=== PATIENT | male | born 1950 | race Caucasian/White ===

== ENCOUNTER 2016-11-29 09:16 | Day surgery (SDC) | payer MEDICARE, BC ==
[2016-11-27 14:41] VITALS: BMI 27.3
[~2016-11-29 09:16] MED LIST: LACTATED RINGERS 1,000 ML IV SCH; LIDOCAINE 1% 20 ML VIAL (10MG/ML) FOR IV START INTRADERMA PRN
[2016-11-29 10:59] VITALS: TEMP 96.9
[2016-11-29] MEDS ORDERED: PROPOFOL 10 MG/ML 20 ML VIAL IV ONE (11:41)
[2016-11-29] MEDS ORDERED: LIDOCAINE 1% INJ 10MG/ML (20 ML MDV) ONE (11:41)
[2016-11-29] MEDS ORDERED: GLYCOPYRROLATE 0.2 MG/ML 2 ML VIAL ONE (11:41)
--- NOTE | 2016-11-29 11:43 | P.GSHP ---
History of Present Illness H&P Date: 11/29/16 Chief Complaint: Screening colonoscopy This is a 66-year-old male referred from Dr. Sue newton. Patient notes today for screening colonoscopy. Past Medical History Past Medical History: GERD/Reflux, Hypertension Additional Past Medical History / Comment(s): PAST GERD. ENVIRONMENTAL ALLERGIES. History of Any Multi-Drug Resistant Organisms: None Reported Past Surgical History: Cholecystectomy, Hernia Repair, Joint Replacement Additional Past Surgical History / Comment(s): TOTAL LT HIP. CTR RT HAND. HIATAL HERNIA REPAIR. COLONOSCOPIES. Past Anesthesia/Blood Transfusion Reactions: No Reported Reaction Smoking Status: Former smoker - Past Family History Mother Family Medical History: No Reported History Medications and Allergies Home Medications Medication Instructions Recorded Confirmed Type Aspirin [Adult Low Dose Aspirin EC] 81 mg PO DAILY 11/27/16 11/29/16 History Atorvastatin [Lipitor] 10 mg PO HS 11/27/16 11/29/16 History B Complex-Vit C-Vit E-Zinc [Z-Bec] 1 tab PO DAILY 11/27/16 11/29/16 History Celecoxib [CeleBREX] 200 mg PO DAILY 11/27/16 11/29/16 History Cholecalciferol (Vitamin D3) 2,000 unit PO DAILY 11/27/16 11/29/16 History [Vitamin D3] Finasteride [Proscar] 5 mg PO DAILY 11/27/16 11/29/16 History Fish Oil/Dha/Epa [Fish Oil 1,200 2 each PO DAILY 11/27/16 11/29/16 History mg Fish Oil] Hydrochlorothiazide [Hydrodiuril] 12.5 mg PO DAILY 11/27/16 11/29/16 History Loratadine [Claritin] 10 mg PO DAILY 11/27/16 11/29/16 History Montelukast [Singulair] 10 mg PO HS 11/27/16 11/29/16 History Multivit-Min/FA/Lycopen/Lutein 1 each PO DAILY 11/27/16 11/29/16 History [Centrum Silver Men Tablet] Potassium Chloride [K-Tab ER] 20 meq PO MOFR 11/27/16 11/29/16 History Pregabalin [Lyrica] 150 mg PO QAM 11/27/16 11/29/16 History Pregabalin [Lyrica] 300 mg PO HS 11/27/16 11/29/16 History Allergies Allergy/AdvReac Type Severity Reaction Status Date / Time No Known Allergies Allergy Verified 11/29/16 11:00 Surgical - Exam Vital Signs Temp Pulse Resp BP Pulse Ox 96.9 F L 77 16 157/100 97 11/29/16 10:57 11/29/16 10:57 11/29/16 10:57 11/29/16 10:57 11/29/16 10:57 - General well developed, no distress - Eyes PERRL - ENT normal pinna - Neck no masses - Respiratory normal expansion - Cardiovascular Rhythm: regular - Abdomen Abdomen: soft, non tender Assessment and Plan Plan: We'll perform screening colonoscopy.
--- NOTE | 2016-11-29 11:58 | P.OP ---
Date of Procedure: 11/29/16 Preoperative Diagnosis: Screening colonoscopy Postoperative Diagnosis: Normal colonoscopy Procedure(s) Performed: Colonoscopy Anesthesia: MAC Surgeon: Morro Abraham Pathology: none sent Condition: stable Disposition: PACU Description of Procedure: The patient's placed on the endoscopy table in the lateral position. He received IV sedation. Digital rectal exam was performed which revealed no abnormalities. The prostate was symmetric without nodules. The flexible colonoscope was then placed patient anus passed throughout the entire colon. The ileocecal valve was visualized. The cecum, ascending transverse colon appeared normal. In the descending; was mild diverticular changes. Scope was then brought back the rectum and this appeared normal. Scope was withdrawn for patient.
[2016-11-29 12:08] VITALS: RESP 20
[2016-11-29 13:05] VITALS: BP 149/99; PULSE 78
== END 2016-11-29 13:18 | disposition home or self-care (01) ==
LOC: ORWHC2ENDO 09:16
PROVIDERS: ATTEND Surgery
DX: Z12.11 Encounter for screening for malignant neoplasm of colon (principal); I10 Essential (primary) hypertension; K21.9 Gastro-esophageal reflux disease without esophagitis; E78.5 Hyperlipidemia, unspecified; Z79.82 Long term (current) use of aspirin; Z79.899 Other long term (current) drug therapy; Z87.891 Personal history of nicotine dependence; Z96.642 Presence of left artificial hip joint
CPT/HCPCS: 96361; 96374; 99284; 36415; 80053; 82150; 83690; 85025; 71020; J2765; J2001; J2704; G0121

== ENCOUNTER 2016-11-29 21:29 | Emergency (ER) | payer MEDICARE, BC ==
[2016-11-29] MEDS ORDERED: METOCLOPRAMIDE 5 MG/ML 2 ML VIAL IVP STA (22:14)
[2016-11-29] MEDS ORDERED: SODIUM CHLORIDE 0.9% 1,000 ML IV STA ×2 (22:14)
--- NOTE | 2016-11-29 22:50 | ED ---
General Adult HPI - General Chief complaint: Nausea/Vomiting/Diarrhea Stated complaint: post colonoscopy headache & vomiting Time Seen by Provider: 11/29/16 22:08 Source: patient, family, RN notes reviewed, old records reviewed Mode of arrival: ambulatory Limitations: no limitations - History of Present Illness Initial comments: chief complaint and history of present illness this is a 66-year-old male here with family. The patient reports had a bowel prep last night for a colonoscopy today. Last night started having a mild headache he was nauseated he had diarrhea yesterday. Today of a colonoscopy had nausea vomiting headache increased diarrhea increased. Has not been able take his medications. Not complaining of any significant abdominal pain. - Related Data Home Medications Medication Instructions Recorded Confirmed Aspirin [Adult Low Dose Aspirin EC] 81 mg PO DAILY 11/27/16 11/29/16 Atorvastatin [Lipitor] 10 mg PO HS 11/27/16 11/29/16 B Complex-Vit C-Vit E-Zinc [Z-Bec] 1 tab PO DAILY 11/27/16 11/29/16 Celecoxib [CeleBREX] 200 mg PO DAILY 11/27/16 11/29/16 Cholecalciferol (Vitamin D3) 2,000 unit PO DAILY 11/27/16 11/29/16 [Vitamin D3] Finasteride [Proscar] 5 mg PO DAILY 11/27/16 11/29/16 Fish Oil/Dha/Epa [Fish Oil 1,200 2 cap PO DAILY 11/27/16 11/29/16 mg Fish Oil] Hydrochlorothiazide [Hydrodiuril] 12.5 mg PO DAILY 11/27/16 11/29/16 Loratadine [Claritin] 10 mg PO DAILY 11/27/16 11/29/16 Montelukast [Singulair] 10 mg PO HS 11/27/16 11/29/16 Potassium Chloride [K-Tab ER] 20 meq PO MOFR 11/27/16 11/29/16 Pregabalin [Lyrica] 150 mg PO QAM 11/27/16 11/29/16 Pregabalin [Lyrica] 300 mg PO HS 11/27/16 11/29/16 Multivitamins, Thera [Multivitamin 1 tab PO DAILY 11/29/16 11/29/16 (formulary)] Previous Rx's Medication Instructions Recorded Metoclopramide HCl [Reglan] 5 mg PO TID #6 tablet 11/30/16 Allergies Allergy/AdvReac Type Severity Reaction Status Date / Time No Known Allergies Allergy Verified 11/29/16 21:47 Review of Systems ROS Statement: Those systems with pertinent positive or pertinent negative responses have been documented in the HPI. review of systems patient reports she started having headache yesterday. Persisted today. Slightly better than it was earlier. No visual acuity changes. No sore throat. No chest pain or shortness of breath. He's had nausea vomiting and diarrhea today after having had a colonoscopy. All systems are reviewed Past medical problems GERD, hypertension,. The patient's surgeries cholecystectomy, left inguinal hernia repair. Left total hip. Family history father had lymphoma. Patient denies any ALLERGIES he quit smoking 1990. Drinks alcohol 2-3 beers per day. Review of the dictation of the colonoscopy findings procedure went without apparent difficulties no biopsies were performed no apparent complications recorded. ROS Other: All systems not noted in ROS Statement are negative. Past Medical History Past Medical History: GERD/Reflux, Hypertension Additional Past Medical History / Comment(s): PAST GERD. ENVIRONMENTAL ALLERGIES. History of Any Multi-Drug Resistant Organisms: None Reported Past Surgical History: Cholecystectomy, Hernia Repair, Joint Replacement Additional Past Surgical History / Comment(s): TOTAL LT HIP. CTR RT HAND. HIATAL HERNIA REPAIR. COLONOSCOPIES. Past Anesthesia/Blood Transfusion Reactions: No Reported Reaction Past Psychological History: No Psychological Hx Reported Smoking Status: Former smoker Past Alcohol Use History: None Reported Past Drug Use History: None Reported - Past Family History Mother Family Medical History: No Reported History General Exam - General Exam Comments Initial Comments: General: The patient is awake and alert, complain of mild headache, nausea vomiting and diarrhea. Vital signs temp 98.3 pulse 96 respiratory rate 20 pulse ox 90% room air blood pressure 176/98 Eye: Pupils are equal, round and reactive to light, extra-ocular movements are intact ; there is normal conjunctiva bilaterally. No signs of icterus. Ears, nose, mouth and throat: There are moist mucous membranes no oral lesions, patient is edentulous. Neck: The neck is supple, there is no tenderness, no anterior cervical lymphadenopathy thyroid not enlarged. Cardiovascular: There is a regular rate and rhythm. No murmur, rub or gallop is appreciated. Respiratory: Lungs are clear to auscultation, respirations are non-labored, breath sounds are equal. No wheezes, stridor, rales, or rhonchi. Gastrointestinal: Soft, non-distended, non-tender abdomen without masses or organomegaly noted. There is no rebound or guarding present. active bowel sounds.planes of nausea vomiting and diarrhea. Back: no back pain. 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 He also reports having spinal stenosis. Neurological: no neuro deficits. Skin is warm and dry and no rashes or lesions are noted. Limitations: no limitations Course Vital Signs 11/29/16 11/29/16 21:46 23:55 Temperature 98.3 F 98.2 F Pulse Rate 96 93 Respiratory 20 18 Rate Blood Pressure 176/98 171/99 O2 Sat by Pulse 98 95 Oximetry Medical Decision Making - Medical Decision Making Labs show white count 9 hemoglobin 16 hematocrit 46. Potassium 4.1 with a BUN 12 creatinine 0.78 and GFR greater than 60. Glucose 141. Amylase lipase within normal limits. x-ray the chest was done reviewed by radiologist his final impression is unremarkable [address] morris. There is no evidence of free air under the diaphragm specifically. after IV Reglan and a liter fluid the patient reports feeling much better. The patient will be discharged home on medications to include Reglan, Pepto-Bismol advised to rehydrate. - Lab Data Result diagrams: 11/29/16 22:50 11/29/16 22:50 Lab Results 11/29/16 11/29/16 Range/Units 22:50 22:50 WBC 9.1 (3.8-10.6) k/uL RBC 4.98 (4.30-5.90) m/uL Hgb 16.1 (13.0-17.5) gm/dL Hct 46.7 (39.0-53.0) % MCV 93.9 (80.0-100.0) fL MCH 32.4 (25.0-35.0) pg MCHC 34.5 (31.0-37.0) g/dL RDW 14.9 (11.5-15.5) % Plt Count 146 L (150-450) k/uL Neutrophils % 83 % Lymphocytes % 9 % Monocytes % 5 % Eosinophils % 1 % Basophils % 0 % Neutrophils # 7.6 (1.3-7.7) k/uL Lymphocytes # 0.8 L (1.0-4.8) k/uL Monocytes # 0.5 (0-1.0) k/uL Eosinophils # 0.1 (0-0.7) k/uL Basophils # 0.0 (0-0.2) k/uL Sodium 130 L (137-145) mmol/L Potassium 4.1 (3.5-5.1) mmol/L Chloride 94 L (98-107) mmol/L Carbon Dioxide 24 (22-30) mmol/L Anion Gap 12 mmol/L BUN 12 (9-20) mg/dL Creatinine 0.78 (0.66-1.25) mg/dL Est GFR (MDRD) Af Amer >60 (>60 ml/min/1.73 sqM) Est GFR (MDRD) Non-Af >60 (>60 ml/min/1.73 sqM) Glucose 141 H (74-99) mg/dL Calcium 9.6 (8.4-10.2) mg/dL Total Bilirubin 1.0 (0.2-1.3) mg/dL AST 34 (17-59) U/L ALT 42 (21-72) U/L Alkaline Phosphatase 79 (38-126) U/L Total Protein 7.5 (6.3-8.2) g/dL Albumin 4.8 (3.5-5.0) g/dL Amylase 38 (30-110) U/L Lipase 30 (23-300) U/L Disposition Clinical Impression: Dehydration symptoms Disposition: HOME SELF-CARE Condition: Fair Instructions: Acute Diarrhea (ED), Acute Nausea and Vomiting (ED) Additional Instructions: follow-up with your family physician. Continue clear fluids. Use Reglan for nausea control, use Pepto-Bismol to control diarrhea. Advance diet Prescriptions: Metoclopramide HCl [Reglan] 5 mg PO TID #6 tablet Referrals: Sue Miranda DO [Primary Care Provider] - 1-2 days Time of Disposition: 00:12
[2016-11-29 23:04] LABS: Basophils % (A) 0 %; CH 33.7; Eosinophils # (A) 0.1 k/uL (0-0.7); Eosinophils % (A) 1 %; HCT 46.7 % (39.0-53.0); HDW 2.59; HGB 16.1 gm/dL (13.0-17.5); Luc % (Auto) 1; Lymphocytes # (A) 0.8 k/uL (1.0-4.8); Lymphocytes % (A) 9 %; MCH 32.4 pg (25.0-35.0); MCHC 34.5 g/dL (31.0-37.0); MCV 93.9 fL (80.0-100.0); Mean Platelet Volume 8.8; Monocytes # (A) 0.5 k/uL (0-1.0); Monocytes % (A) 5 %; Neutrophils # (A) 7.6 k/uL (1.3-7.7); Neutrophils % (A) 83 %; RBC 4.98 m/uL (4.30-5.90); RDW 14.9 % (11.5-15.5); WBC 9.1 k/uL (3.8-10.6); WBC (Perox) 8.72
[2016-11-29 23:12] LABS: ALT 42 U/L (21-72); AST 34 U/L (17-59); Alkaline Phosphatase 79 U/L (38-126); Amylase 38 U/L (30-110); Anion Gap 12 mmol/L; Blood Urea Nitrogen 12 mg/dL (9-20); Calcium 9.6 mg/dL (8.4-10.2); Carbon Dioxide 24 mmol/L (22-30); Chloride 94 mmol/L (98-107); Glucose 141 mg/dL (74-99); Non-African American GFR(MDRD) >60 (>60 ml/min/1.73 sqM); Potassium 4.1 mmol/L (3.5-5.1); Sodium 130 mmol/L (137-145); Total Protein 7.5 g/dL (6.3-8.2)
--- NOTE | 2016-11-29 23:44 | XR ---
PROCEDURE: FILM CXR 2 VIEWS HISTORY: 66-year-old male with chest pain, nausea, and vomiting status post colonoscopy. COMPARISON: None TECHNIQUE: Frontal and lateral views of the chest were obtained. FINDINGS: Cardiomediastinal silhouette is within normal limits. No evidence of focal consolidation, pleural effusion, or pneumothorax No evidence of focal consolidation. Bones are unremarkable for age. No evidence of free air under the diaphragm. Cholecystectomy clips overlie the right upper quadrant. IMPRESSION: Unremarkable two-view chest..
[2016-11-29 23:57] VITALS: BP 171/99; PULSE 93; RESP 18; TEMP 98.2
== END 2016-11-30 00:32 | disposition home or self-care (01) ==
LOC: EC 21:29
DX: R51 Headache (principal); R11.2 Nausea with vomiting, unspecified; R19.7 Diarrhea, unspecified; K21.9 Gastro-esophageal reflux disease without esophagitis; I10 Essential (primary) hypertension; Z87.891 Personal history of nicotine dependence; Z79.82 Long term (current) use of aspirin; Z79.899 Other long term (current) drug therapy; Z90.49 Acquired absence of other specified parts of digestive tract
CPT/HCPCS: 36415; 80053; 82150; 83690; 85025; 71020; 99284; 96374; 96361 ×2; J2765

== ENCOUNTER 2017-04-03 09:14 | Emergency (ER) | payer MEDICARE, BC ==
[2017-04-03] MEDS ORDERED: SODIUM CHLORIDE 0.9% 1,000 ML IV STA (09:18)
[2017-04-03] MEDS ORDERED: RX INFO: IV CONTRAST WAS GIVEN 1 EACH MISC MISCELLANE PRN (09:18)
[2017-04-03] MEDS ORDERED: SODIUM CHLORIDE 0.9% 500 ML IV STA (09:18)
[2017-04-03] MEDS ORDERED: tPA (Alteplase) PER PHARMACY 1 EACH MISC MISCELLANE PRN (09:19)
[2017-04-03 09:30] VITALS: TEMP 96.9
[2017-04-03] MEDS ORDERED: LABETALOL 5 MG/ML VIAL MDV IVP STA (09:32)
[2017-04-03] MEDS ORDERED: niCARdipine 25 MG in SODIUM CHLORIDE 0.9% 240 ML IV ONE ×2 (09:37→09:45)
[2017-04-03] MEDS ORDERED: TRANEXAMIC ACID 1,000 MG in SODIUM CHLORIDE 0.9% 100 ML IV STA (09:39)
[2017-04-03] MEDS ORDERED: TRANEXAMIC ACID 1,000 MG in SODIUM CHLORIDE 0.9% 250 ML IV ONE (09:39)
--- NOTE | 2017-04-03 09:43 | ED ---
General Adult HPI - General Chief complaint: Neuro Symptoms/Deficit Stated complaint: CVA Time Seen by Provider: 04/03/17 09:18 Source: EMS, RN notes reviewed, old records reviewed Mode of arrival: EMS Limitations: physical limitation - History of Present Illness Initial comments: This is a 67 male to the ER for evaluation. Patient's friend ER for evaluation of being found down and unresponsive. Patient is on no medical history, patient 's poor historian secondary to clinical condition, EMS knows little about patient, patient has and remains unresponsive, EMS noted patient is not moving any part of the right side of his body. Patient is also unable to talk - Related Data Home Medications Medication Instructions Recorded Confirmed Aspirin [Adult Low Dose Aspirin EC] 81 mg PO DAILY 11/27/16 04/03/17 Atorvastatin [Lipitor] 10 mg PO HS 11/27/16 04/03/17 Celecoxib [CeleBREX] 200 mg PO DAILY 11/27/16 04/03/17 Cholecalciferol (Vitamin D3) 2,000 unit PO DAILY 11/27/16 04/03/17 [Vitamin D3] Finasteride [Proscar] 5 mg PO DAILY 11/27/16 04/03/17 Fish Oil/Dha/Epa [Fish Oil 1,200 2 cap PO DAILY 11/27/16 04/03/17 mg Fish Oil] Loratadine [Claritin] 10 mg PO DAILY 11/27/16 04/03/17 Montelukast [Singulair] 10 mg PO HS 11/27/16 04/03/17 Potassium Chloride [K-Tab ER] 20 meq PO DAILY 11/27/16 04/03/17 Pregabalin [Lyrica] 150 mg PO DAILY 11/27/16 04/03/17 Pregabalin [Lyrica] 300 mg PO HS 11/27/16 04/03/17 Multivitamins, Thera [Multivitamin 1 tab PO DAILY 11/29/16 04/03/17 (formulary)] Gabapentin [Neurontin] 600 mg PO BID 04/03/17 04/03/17 Lisinopril-Hctz 10-12.5 mg 1 tab PO DAILY 04/03/17 04/03/17 [Zestoretic 10-12.5] Allergies Allergy/AdvReac Type Severity Reaction Status Date / Time No Known Allergies Allergy Verified 04/03/17 09:33 Review of Systems ROS Statement: Those systems with pertinent positive or pertinent negative responses have been documented in the HPI. ROS Other: All systems not noted in ROS Statement are negative. Past Medical History Past Medical History: GERD/Reflux, Hypertension Additional Past Medical History / Comment(s): PAST GERD. ENVIRONMENTAL ALLERGIES. History of Any Multi-Drug Resistant Organisms: None Reported Past Surgical History: Cholecystectomy, Hernia Repair, Joint Replacement Additional Past Surgical History / Comment(s): TOTAL LT HIP. CTR RT HAND. HIATAL HERNIA REPAIR. COLONOSCOPIES. Past Anesthesia/Blood Transfusion Reactions: No Reported Reaction Past Psychological History: No Psychological Hx Reported Smoking Status: Former smoker Past Alcohol Use History: None Reported Past Drug Use History: None Reported - Past Family History Mother Family Medical History: No Reported History General Exam - General Exam Comments Initial Comments: Patient is alert, unable to speak, Limitations: physical limitation General appearance: alert, in no apparent distress Head exam: Present: atraumatic, normocephalic, normal inspection Eye exam: Present: normal appearance, PERRL, other (Left gaze). Absent: scleral icterus, conjunctival injection, periorbital swelling ENT exam: Present: normal exam, mucous membranes moist Neck exam: Present: normal inspection. Absent: tenderness, meningismus, lymphadenopathy Respiratory exam: Present: normal lung sounds bilaterally. Absent: respiratory distress, wheezes, rales, rhonchi, stridor Cardiovascular Exam: Present: normal rhythm, tachycardia, normal heart sounds. Absent: systolic murmur, diastolic murmur, rubs, gallop, clicks GI/Abdominal exam: Present: soft, normal bowel sounds. Absent: distended, tenderness, guarding, rebound, rigid Extremities exam: Present: normal inspection, full ROM, normal capillary refill. Absent: tenderness, pedal edema, joint swelling, calf tenderness Back exam: Present: normal inspection Neurological exam: Present: alert, oriented X3, CN II-XII intact Psychiatric exam: Present: normal affect, normal mood Skin exam: Present: warm, dry, intact, normal color. Absent: rash Course Vital Signs 04/03/17 04/03/17 04/03/17 09:14 09:33 09:48 Temperature 96.9 F L Pulse Rate 112 H 84 69 Respiratory 18 18 16 Rate Blood Pressure 174/101 184/107 150/91 O2 Sat by Pulse 96 94 L 96 Oximetry 04/03/17 04/03/17 10:00 10:15 Temperature Pulse Rate 74 72 Respiratory 16 16 Rate Blood Pressure 132/79 141/91 O2 Sat by Pulse 95 95 Oximetry - Reevaluation(s) Reevaluation #1: 04/03/17 09:41 Strict blood pressure control is achieved here in the emergency room EKG Findings - EKG Comments: EKG Findings:: EKG shows normal sinus rhythm rate of 70, pO2 10, QRS 86, QTc 417 Medical Decision Making - Medical Decision Making 67 male the ER for evaluation regarding altered mental state, patient is positive spontaneous intracerebral hemorrhage secondary to spontaneous event, no evidence of trauma. Patient will be transferred for neurosurgical evaluation and management, intensive care - Lab Data Result diagrams: 04/03/17 09:30 04/03/17 09:30 Lab Results 04/03/17 04/03/17 Range/Units 09:30 09:30 WBC 6.5 (3.8-10.6) k/uL RBC 4.75 (4.30-5.90) m/uL Hgb 15.0 (13.0-17.5) gm/dL Hct 43.5 (39.0-53.0) % MCV 91.7 (80.0-100.0) fL MCH 31.5 (25.0-35.0) pg MCHC 34.4 (31.0-37.0) g/dL RDW 14.7 (11.5-15.5) % Plt Count 170 (150-450) k/uL Neutrophils % 43 % Lymphocytes % 39 % Monocytes % 8 % Eosinophils % 5 % Basophils % 1 % Neutrophils # 2.8 (1.3-7.7) k/uL Lymphocytes # 2.5 (1.0-4.8) k/uL Monocytes # 0.5 (0-1.0) k/uL Eosinophils # 0.4 (0-0.7) k/uL Basophils # 0.0 (0-0.2) k/uL Sodium 129 L (137-145) mmol/L Potassium 4.1 (3.5-5.1) mmol/L Chloride 93 L (98-107) mmol/L Carbon Dioxide 25 (22-30) mmol/L Anion Gap 11 mmol/L BUN 16 (9-20) mg/dL Creatinine 0.77 (0.66-1.25) mg/dL Est GFR (MDRD) Af Amer >60 (>60 ml/min/1.73 sqM) Est GFR (MDRD) Non-Af >60 (>60 ml/min/1.73 sqM) Glucose 126 H (74-99) mg/dL Calcium 9.5 (8.4-10.2) mg/dL Total Bilirubin 0.8 (0.2-1.3) mg/dL AST 35 (17-59) U/L ALT 39 (21-72) U/L Alkaline Phosphatase 78 (38-126) U/L Total Protein 6.8 (6.3-8.2) g/dL Albumin 4.3 (3.5-5.0) g/dL - Radiology Data Radiology results: report reviewed (CT brain is positive for spontaneous intracerebral hemorrhage), image reviewed Critical Care Time Critical Care Time: Yes Total Critical Care Time: 31 Disposition Clinical Impression: Intracerebral hemorrhage Disposition: OTHER INSTITUTION NOT DEFINED Condition: Critical Referrals: None,Stated [REFERRING] - 1-2 days - Out of Hospital Transfer - Req. Specs Out of Hospital Transfer - Requested Specifics: Other Emergency Center ([facility])
[2017-04-03] MEDS ORDERED: LABETALOL 5 MG/ML VIAL MDV IVP SCH (09:45)
--- NOTE | 2017-04-03 09:49 | CT ---
EXAMINATION TYPE: CT brain wo con for TPA DATE OF EXAM: 04/03/2017 COMPARISON: NONE INDICATION: Rt sided weakness, unresponsive DLP: 943.8 mGycm, Automated exposure control for dose reduction was used. CONTRAST: None CT of the brain is performed utilizing 3 mm thick sections through the posterior fossa and 3 mm thick sections through the remaining calvarium. Study is performed within 24 hours of arrival to the hosp ital. There is a 5.7 x 2.5 x 3.9 cm hemorrhage extending from the left basal ganglion. This has local mass effect. Edema is not adjacent at this time. There is some effacement of the local sulci as well as ef facement of the left lateral ventricle. No midline shift or subfalcine herniation is evident. No temp oral horn dilatation is evident at this time. Remaining ventricles and sulci are appropriate for the patient age. Quadrigeminal plate and ambient cistern are normal. No tentorial herniation is evident . No mass lesion is evident. No acute infarcts are evident. Paranasal sinuses and mastoid air cells within the [id number] are clear. IMPRESSIONS: 1. Large intraparenchymal left basal ganglion hemorrhage with local mass effect and effacement of s ulci and left lateral ventricle. 2. Report was called to the emergency room physician Dr. Rodriguez by Dr. Buchanan by telephone at 0945 hours 04/03/2017.
--- NOTE | 2017-04-03 09:53 | CT ---
EXAMINATION TYPE: CT cervical spine wo con DATE OF EXAM: 04/03/2017 COMPARISON: NONE HISTORY: CVA CT DLP: 697.9 mGycm CONTRAST: none CT of the cervical spine is performed in the axial plane at 2 mm thick sections. Reconstructed image s in the coronal, and sagittal plane are reviewed on the computer. No acute fractures are evident. Vertebral body alignment is normal. There is loss of disc height through the cervical spine greater at C3-4 C4-5 and C6-7. Vertebral body heights are preserved. No spinal canal stenosis is evident Uncovertebral joint hypertrophy at C3-4 causes moderate right and minimal left foraminal narrowing. M ild foraminal narrowing is present C4-5 due to uncovertebral joint hypertrophy bilaterally. Facet guilherme nges are present C5-6 without significant foraminal narrowing. Mild uncovertebral joint hypertrophy i s present C6-7 with mild left foraminal narrowing. IMPRESSIONS: 1. Degenerative disc changes discussed above. 2. Uncovertebral joint hypertrophy facet hypertrophy contributing to foraminal narrowing as discussed above. 3. No acute abnormality
[2017-04-03 10:00] VITALS: RESP 16
[2017-04-03 10:05] LABS: ALT 39 U/L (21-72); AST 35 U/L (17-59); Albumin 4.3 g/dL (3.5-5.0); Alkaline Phosphatase 78 U/L (38-126); Anion Gap 11 mmol/L; Blood Urea Nitrogen 16 mg/dL (9-20); Calcium 9.5 mg/dL (8.4-10.2); Carbon Dioxide 25 mmol/L (22-30); Chloride 93 mmol/L (98-107); Glucose 126 mg/dL (74-99); Potassium 4.1 mmol/L (3.5-5.1); Sodium 129 mmol/L (137-145); Total Bilirubin 0.8 mg/dL (0.2-1.3); Total Protein 6.8 g/dL (6.3-8.2)
[2017-04-03] MEDS ORDERED: PHYTONADIONE 10 MG in SODIUM CHLORIDE 0.9% 50 ML IVPB STA (10:07)
[2017-04-03] MEDS ORDERED: Kcentra PER PHARMACY 1 EACH MISC MISCELLANE PRN (10:07)
[2017-04-03 10:11] LABS: Basophils % (A) 1 %; Eosinophils # (A) 0.4 k/uL (0-0.7); Eosinophils % (A) 5 %; HCT 43.5 % (39.0-53.0); Lymphocytes # (A) 2.5 k/uL (1.0-4.8); Lymphocytes % (A) 39 %; MCH 31.5 pg (25.0-35.0); MCHC 34.4 g/dL (31.0-37.0); MCV 91.7 fL (80.0-100.0); Mean Platelet Volume 7.7; Monocytes # (A) 0.5 k/uL (0-1.0); Monocytes % (A) 8 %; Neutrophils # (A) 2.8 k/uL (1.3-7.7); Neutrophils % (A) 43 %; Platelet Count 170 k/uL (150-450); RBC 4.75 m/uL (4.30-5.90); RDW 14.7 % (11.5-15.5); WBC 6.5 k/uL (3.8-10.6)
[2017-04-03 10:15] LABS: Creatine Kinase 119 U/L (55-170)
[2017-04-03 10:28] LABS: Creatine Kinase MB 2.4 ng/mL (0.0-2.4); Troponin I <0.012 ng/mL (0.000-0.034)
--- NOTE | 2017-04-03 10:32 | XR ---
EXAMINATION TYPE: XR chest 1V portable DATE OF EXAM: 04/03/2017 COMPARISON: 11/29/2016 INDICATION: Altered mental status TECHNIQUE: Single frontal view of the chest is obtained. FINDINGS: The heart size is mildly prominent. The pulmonary vasculature is normal. Left lung apex is obscured by the mandible. Mild lingular infiltrate may be present. IMPRESSION: 1. Suspicion of a mild lingular infiltrate. 2. Mild cardiomegaly
[2017-04-03 10:46] VITALS: PULSE 73
[2017-04-03 10:52] LABS: Glucose,Whole Blood 121 mg/dL (75-99)
[2017-04-03 10:55] VITALS: BP 146/85
[2017-04-03 11:04] LABS: INR 1.1 (<1.2); Partial Thromboplastin Time 24.4 sec (22.0-30.0); Prothrombin Time 10.6 sec (9.0-12.0)
== END 2017-04-03 11:13 | disposition other institution (70) ==
LOC: EC 09:14
DX: I61.9 Nontraumatic intracerebral hemorrhage, unspecified (principal); I10 Essential (primary) hypertension; Z87.891 Personal history of nicotine dependence; Z79.82 Long term (current) use of aspirin; Z79.899 Other long term (current) drug therapy
CPT/HCPCS: 36415; 51702; 70450; 71045; 72125; 80053; 82550; 82553; 84484; 85025; 85610; 85730; 86850; 86900; 86901; 93005; 96361; 96365; 96375; 99291

== ENCOUNTER 2023-12-16 11:24 | Inpatient (IN) | payer MEDICARE, OTHER ==
--- NOTE | 2023-12-16 11:34 | ED ---
SOB HPI - General Chief Complaint: Shortness of Breath Stated Complaint: ELLIE Time Seen by Provider: 12/16/23 11:31 Source: EMS, RN notes reviewed, old records reviewed Mode of arrival: EMS Limitations: no limitations - History of Present Illness Initial Comments: This is a 73-year-old male to the ER today. Patient has known history of COPD diabetes chronic kidney chronic kidney disease high cholesterol dementia. These are contributing to his significant respiratory distress. This patient presents today for evaluation regards to shortness of breath with low oxygen levels. Patient has persistent and severe shortness of breath here in the ER. Travel no sick contacts no other known complaints, patient was with low oxygen to arrival and persistently low oxygen here in the ER MD Complaint: shortness of breath, cough -: unknown Severity: severe Severity scale (1-10): 9 Consistency: constant Improves With: nothing Worsens With: nothing Known History Of: COPD, congestive heart failure Context: recent illness Associated Symptoms: cough - Related Data Home Medications Medication Instructions Recorded Confirmed Atorvastatin [Lipitor] 10 mg PO HS 11/27/16 12/16/23 Finasteride [Proscar] 5 mg PO DAILY 11/27/16 12/16/23 Montelukast [Singulair] 10 mg PO HS 11/27/16 12/16/23 Pregabalin [Lyrica] 150 mg PO BID 11/27/16 12/16/23 Multivitamins, Thera [Multivitamin 1 tab PO DAILY 11/29/16 12/16/23 (formulary)] Cholecalciferol [Vitamin D3 (25 75 mcg PO DAILY 12/16/23 12/16/23 Mcg = 1000 Iu)] Fluticasone/Umeclidin/Vilanter 1 puff INHALATION RT-DAILY 12/16/23 12/16/23 [Trelegy Ellipta 100-62.5-25] HYDROcodone/APAP 5-325MG [[place] 1 tab PO BID 12/16/23 12/16/23 5-325] Insulin Glargine,Hum.rec.anlog 20 units SQ DAILY 12/16/23 12/16/23 [Lantus Solostar Pen] Ipratropium-Albuterol Nebulize 3 ml INHALATION RT-TID 12/16/23 12/16/23 [Duoneb 0.5 mg-3 mg/3 ml Soln] Metoprolol Tartrate [Lopressor] 12.5 mg PO BID 12/16/23 12/16/23 metFORMIN HCL [Glucophage] 500 mg PO BID-W/MEALS 12/16/23 12/16/23 Allergies Allergy/AdvReac Type Severity Reaction Status Date / Time No Known Allergies Allergy Verified 12/16/23 13:39 Review of Systems ROS Statement: Those systems with pertinent positive or pertinent negative responses have been documented in the HPI. ROS Other: All systems not noted in ROS Statement are negative. Past Medical History Past Medical History: GERD/Reflux, Hypertension Additional Past Medical History / Comment(s): PAST GERD. ENVIRONMENTAL ALLERGIES. History of Any Multi-Drug Resistant Organisms: None Reported Past Surgical History: Cholecystectomy, Hernia Repair, Joint Replacement Additional Past Surgical History / Comment(s): TOTAL LT HIP. CTR RT HAND. HIATAL HERNIA REPAIR. COLONOSCOPIES. Past Anesthesia/Blood Transfusion Reactions: No Reported Reaction Past Psychological History: No Psychological Hx Reported Past Alcohol Use History: None Reported Past Drug Use History: None Reported - Past Family History Mother Family Medical History: No Reported History General Exam Limitations: no limitations General appearance: alert, in no apparent distress, anxious Head exam: Present: atraumatic, normocephalic, normal inspection Eye exam: Present: normal appearance, PERRL, EOMI. Absent: scleral icterus, conjunctival injection, periorbital swelling ENT exam: Present: normal exam, mucous membranes moist Neck exam: Present: normal inspection. Absent: tenderness, meningismus, lymphadenopathy Respiratory exam: Present: respiratory distress, wheezes, accessory muscle use, decreased breath sounds, prolonged expiratory. Absent: rales, rhonchi, stridor Cardiovascular Exam: Present: tachycardia, normal heart sounds. Absent: systolic murmur, diastolic murmur, rubs, gallop, clicks GI/Abdominal exam: Present: soft, normal bowel sounds. Absent: distended, tenderness, guarding, rebound, rigid Extremities exam: Present: normal inspection, full ROM, normal capillary refill. Absent: tenderness, pedal edema, joint swelling, calf tenderness Back exam: Present: normal inspection Neurological exam: Present: alert, oriented X3, CN II-XII intact Psychiatric exam: Present: normal affect, normal mood Skin exam: Present: warm, dry, intact, normal color. Absent: rash Course Vital Signs 12/16/23 12/16/23 12/16/23 11:25 12:21 12:45 Temperature 98.7 F Pulse Rate 124 H 109 H 105 H Pulse Rate [ Circular Distributor ] Respiratory 38 H 17 Rate Blood Pressure 124/97 94/81 Blood Pressure [Left Arm] O2 Sat by Pulse 94 L 92 L Oximetry Fraction of Inspired Oxygen (FIO2) 12/16/23 12/16/23 12/16/23 12:55 13:03 13:10 Temperature Pulse Rate 105 H 108 H 108 H Pulse Rate [ Circular Distributor ] Respiratory Rate Blood Pressure Blood Pressure [Left Arm] O2 Sat by Pulse Oximetry Fraction of Inspired Oxygen (FIO2) 12/16/23 12/16/23 12/16/23 13:42 14:48 14:54 Temperature Pulse Rate 116 H 124 H Pulse Rate [ Circular Distributor ] Respiratory 28 H 20 Rate Blood Pressure 151/97 136/89 Blood Pressure [Left Arm] O2 Sat by Pulse 97 96 91 L Oximetry Fraction of Inspired Oxygen (FIO2) 12/16/23 12/16/23 12/16/23 15:32 15:35 15:45 Temperature Pulse Rate 125 H 124 H Pulse Rate [ Circular Distributor ] Respiratory Rate Blood Pressure Blood Pressure [Left Arm] O2 Sat by Pulse 97 Oximetry Fraction of 40 40 Inspired Oxygen (FIO2) 12/16/23 12/16/23 12/16/23 16:01 16:11 16:25 Temperature Pulse Rate 122 H 123 H Pulse Rate [ Circular Distributor ] Respiratory 20 30 H Rate Blood Pressure 82/60 90/60 80/53 Blood Pressure [Left Arm] O2 Sat by Pulse 97 97 Oximetry Fraction of Inspired Oxygen (FIO2) 12/16/23 12/16/23 12/16/23 17:16 19:24 20:43 Temperature Pulse Rate 120 H 134 H 135 H Pulse Rate [ Circular Distributor ] Respiratory 20 22 Rate Blood Pressure 105/90 119/86 Blood Pressure [Left Arm] O2 Sat by Pulse 97 99 Oximetry Fraction of 40 Inspired Oxygen (FIO2) 12/16/23 12/16/23 12/16/23 20:56 21:07 21:47 Temperature Pulse Rate 134 H 130 H 125 H Pulse Rate [ Circular Distributor ] Respiratory 25 H Rate Blood Pressure 99/62 Blood Pressure [Left Arm] O2 Sat by Pulse 98 99 Oximetry Fraction of Inspired Oxygen (FIO2) 12/16/23 12/16/23 12/17/23 22:00 23:44 00:05 Temperature Pulse Rate 125 H 120 H Pulse Rate [ Circular Distributor ] Respiratory 18 18 Rate Blood Pressure 106/72 113/86 Blood Pressure [Left Arm] O2 Sat by Pulse 100 99 Oximetry Fraction of 40 Inspired Oxygen (FIO2) 12/17/23 12/17/23 12/17/23 04:00 05:58 07:12 Temperature 98.1 F Pulse Rate Pulse Rate [ 140 H Circular Distributor ] Respiratory 25 H Rate Blood Pressure Blood Pressure 113/81 [Left Arm] O2 Sat by Pulse 98 Oximetry Fraction of 40 40 40 Inspired Oxygen (FIO2) 12/17/23 12/17/23 12/17/23 07:13 07:32 08:27 Temperature Pulse Rate 128 H 126 H 140 H Pulse Rate [ Circular Distributor ] Respiratory 22 Rate Blood Pressure 121/99 Blood Pressure [Left Arm] O2 Sat by Pulse 97 Oximetry Fraction of Inspired Oxygen (FIO2) 12/17/23 12/17/23 12/17/23 10:17 10:43 10:51 Temperature Pulse Rate 105 H 102 H 105 H Pulse Rate [ Circular Distributor ] Respiratory 20 Rate Blood Pressure 112/76 Blood Pressure [Left Arm] O2 Sat by Pulse 97 Oximetry Fraction of Inspired Oxygen (FIO2) - Reevaluation(s) Reevaluation #1: 12/16/23 14:20 Medical records reviewed Reevaluation #2: 12/16/23 14:20 Patient symptoms mildly improved Reevaluation #3: 12/16/23 14:20 Patient informed of results and questions answered Reevaluation #4: Was pt. sent in by a medical professional or institution (, PA, COAT PRESSER, urgent ca re, hospital, or retirement...) When possible be specific @ -no Did you speak to anyone other than the patient for history (EMS, parent, family, police, friend...)? What history was obtained from this source @ -no Did you review nursing and triage notes (agree or disagree)? Why? @ -agree Are old charts reviewed (outside hosp., previous admission, EMS record, old EKG, old radiological studies, urgent care reports/EKG's, retirement records)? Report findings @ -yes Differential Diagnosis (chest pain, altered mental status, abdominal pain women, abdominal pain men, vaginal bleeding, weakness, fever, dyspnea, syncope, headache, dizziness, GI bleed, back pain, seizure, CVA, palpatations, mental health, musculoskeletal)? @ -prior EKG interpreted by me (3pts min.). @ -yes X-rays interpreted by me (1pt min.). @ -yes history for CHF and pneumonia CT interpreted by me (1pt min.). @ -no U/S interpreted by me (1pt. min.). @ -no What testing was considered but not performed or refused? (CT, X-rays, U/S, labs)? Why? @ -none What meds were considered but not given or refused? Why? @ -none Did you discuss the management of the patient with other professionals (professionals i.e. DrDevi, PA, COAT PRESSER, lab, RT, psych nurse, social work job titles, personnel clerk, teacher, safety and security officer, bilingual case manager)? Give summary @ -no Was smoking cessation discussed for >3mins.? @ -no Was critical care preformed (if so, how long)? @ -yes31 Were there social determinants of health that impacted care today? How? (Homelessness, low income, unemployed, alcoholism, drug addiction, transportation, low edu. Level, literacy, decrease access to med. care, chcf, rehab)? @ -none Was there de-escalation of care discussed even if they declined (Discuss DNR or withdrawal of care, Hospice)? DNR status @ -no What co-morbidities impacted this encounter? (DM, HTN, Smoking, COPD, CAD, Cancer, CVA, ARF, Chemo, Hep., AIDS, mental health diagnosis, sleep apnea, morbid obesity)? @ -none Was patient admitted / discharged? Hospital course, mention meds given and route, prescriptions, significant lab abnormalities, going to OR and other pertinent info. @ - 73 male will be admitted for severe shortness of breath dyspnea hypoxia CHF with pneumonia and underlying COPD Admitted Undiagnosed new problem with uncertain prognosis? @ -no Drug Therapy requiring intensive monitoring for toxicity (Heparin, Nitro, Insulin, Cardizem)? @ -no Were any procedures done? @ -no Diagnosis/symptom? @ -COPD CHF hypoxia pneumonia Acute, or Chronic, or Acute on Chronic? @ -Acute Uncomplicated (without systemic symptoms) or Complicated (systemic symptoms)? @ -Complicated Side effects of treatment? @ -no Exacerbation, Progression, or Severe Exacerbation? @ -exacerbation Poses a threat to life or bodily function? How? (Chest pain, [place], SD, pneumonia, PE, COPD, DKA, ARF, appy, cholecystitis, CVA, Diverticulitis, Homicidal, Ku[place] icidal, threat to staff... and all critical care pts) @ -yes Reevaluation #5: Differential Dyspnea: Coronary syndrome, arrhythmia, tamponade, asthma, COPD, pulmonary embolism, pneumonia, pneumothorax, pulmonary effusion, anaphylaxis, diabetic ketoacidosis, flailed chest, pulmonary contusion, diaphragmatic rupture, anemia, neuromuscular, this is not meant to be an all-inclusive list. - Consultations Consultation #1: Spoke with [facility] who agrees to admit this patient Medical Decision Making - Medical Decision Making 73 male will be admitted for severe shortness of breath dyspnea hypoxia CHF with pneumonia and underlying COPD - Lab Data Result diagrams: 12/21/23 06:41 12/21/23 13:29 Lab Results 12/16/23 12/16/23 12/16/23 Range/Units 12:10 12:10 12:10 WBC 11.5 H (3.8-10.6) k/uL RBC 5.01 (4.30-5.90) m/uL Hgb 15.3 (13.0-17.5) gm/dL Hct 47.2 (39.0-53.0) % MCV 94.2 (80.0-100.0) fL MCH 30.6 (25.0-35.0) pg MCHC 32.5 (31.0-37.0) g/dL RDW 15.8 H (11.5-15.5) % Plt Count 151 (150-450) k/uL MPV 8.6 Neutrophils % 78 % Lymphocytes % 14 % Monocytes % 6 % Eosinophils % 1 % Basophils % 0 % Neutrophils # 8.9 H (1.3-7.7) k/uL Lymphocytes # 1.6 (1.0-4.8) k/uL Monocytes # 0.7 (0-1.0) k/uL Eosinophils # 0.1 (0-0.7) k/uL Basophils # 0.0 (0-0.2) k/uL PT 10.8 (10.0-12.5) sec INR 1.0 (<1.2) APTT 24.3 (22.0-30.0) sec Sodium (137-145) mmol/L Potassium (3.5-5.1) mmol/L Chloride (98-107) mmol/L Carbon Dioxide (22-30) mmol/L Anion Gap mmol/L BUN (9-20) mg/dL Creatinine (0.66-1.25) mg/dL Est GFR (CKD-EPI)AfAm (>60 ml/min/1.73 sqM) Est GFR (CKD-EPI)NonAf (>60 ml/min/1.73 sqM) Glucose (74-99) mg/dL Lactic Ac Sepsis Rflx Plasma Lactic Acid Kyle 2.4 H* (0.7-2.0) mmol/L Calcium (8.4-10.2) mg/dL Magnesium (1.6-2.3) mg/dL Total Bilirubin (0.2-1.3) mg/dL AST (17-59) U/L ALT (4-49) U/L Alkaline Phosphatase (38-126) U/L Troponin I (0.000-0.034) ng/mL Total Protein (6.3-8.2) g/dL Albumin (3.5-5.0) g/dL 12/16/23 12/16/23 12/16/23 Range/Units 12:10 12:52 13:11 WBC (3.8-10.6) k/uL RBC (4.30-5.90) m/uL Hgb (13.0-17.5) gm/dL Hct (39.0-53.0) % MCV (80.0-100.0) fL MCH (25.0-35.0) pg MCHC (31.0-37.0) g/dL RDW (11.5-15.5) % Plt Count (150-450) k/uL MPV Neutrophils % % Lymphocytes % % Monocytes % % Eosinophils % % Basophils % % Neutrophils # (1.3-7.7) k/uL Lymphocytes # (1.0-4.8) k/uL Monocytes # (0-1.0) k/uL Eosinophils # (0-0.7) k/uL Basophils # (0-0.2) k/uL PT (10.0-12.5) sec INR (<1.2) APTT (22.0-30.0) sec Sodium 135 L (137-145) mmol/L Potassium 4.6 (3.5-5.1) mmol/L Chloride 105 (98-107) mmol/L Carbon Dioxide 27 (22-30) mmol/L Anion Gap 3 mmol/L BUN 11 (9-20) mg/dL Creatinine 0.62 L (0.66-1.25) mg/dL Est GFR (CKD-EPI)AfAm >90 (>60 ml/min/1.73 sqM) Est GFR (CKD-EPI)NonAf >90 (>60 ml/min/1.73 sqM) Glucose 177 H (74-99) mg/dL Lactic Ac Sepsis Rflx Y Plasma Lactic Acid Kyle (0.7-2.0) mmol/L Calcium 8.7 (8.4-10.2) mg/dL Magnesium 1.6 (1.6-2.3) mg/dL Total Bilirubin 1.2 (0.2-1.3) mg/dL AST 30 (17-59) U/L ALT 41 (4-49) U/L Alkaline Phosphatase 105 (38-126) U/L Troponin I 0.020 (0.000-0.034) ng/mL Total Protein 5.4 L (6.3-8.2) g/dL Albumin 3.1 L (3.5-5.0) g/dL - EKG Data -: EKG Interpreted by Me (Sinus tachycardia 123 [place] 149 QRS 77 QTc 346) - Radiology Data Radiology results: report reviewed (X-ray shows pneumonia CHF), image reviewed Critical Care Time Critical Care Time: Yes Total Critical Care Time: 31 Disposition Clinical Impression: Congestive heart failure, Acute exacerbation of chronic obstructive pulmonary disease, Acute respiratory failure, Hypoxia, Community acquired pneumonia Disposition: ADMITTED IP TO THIS HOSP Condition: Serious Is patient prescribed a controlled substance at d/c from ED?: No Time of Disposition: 14:00
[2023-12-16] MEDS: SODIUM CHLORIDE 0.9% 1,000 ML IV STA (12:07)
[2023-12-16] MEDS: LORazepam 2 MG/ML INJ IV STA (12:12)
[2023-12-16 12:19] LABS: Basophils % (A) 0 %; Eosinophils # (A) 0.1 k/uL (0-0.7); Eosinophils % (A) 1 %; HCT 47.2 % (39.0-53.0); HGB 15.3 gm/dL (13.0-17.5); Lymphocytes # (A) 1.6 k/uL (1.0-4.8); Lymphocytes % (A) 14 %; MCH 30.6 pg (25.0-35.0); MCHC 32.5 g/dL (31.0-37.0); MCV 94.2 fL (80.0-100.0); Mean Platelet Volume 8.6; Monocytes # (A) 0.7 k/uL (0-1.0); Monocytes % (A) 6 %; Neutrophils # (A) 8.9 k/uL (1.3-7.7); Neutrophils % (A) 78 %; Platelet Count 151 k/uL (150-450); RBC 5.01 m/uL (4.30-5.90); RDW 15.8 % (11.5-15.5); WBC 11.5 k/uL (3.8-10.6)
[2023-12-16 12:34] LABS: Partial Thromboplastin Time 24.3 sec (22.0-30.0); Prothrombin Time 10.8 sec (10.0-12.5)
[2023-12-16] MEDS: ALBUTEROL NEBULIZED 2.5 MG/3 ML INHALATION STA (12:42)
[2023-12-16] MEDS: IPRATROPIUM 0.5 MG/2.5 ML NEBU INHALATION STA (12:42)
--- NOTE | 2023-12-16 12:49 | XR ---
EXAMINATION TYPE: XR chest 1V portable DATE OF EXAM: 12/16/2023 12:41 PM COMPARISON: Chest radiographs from 04/03/2017 TECHNIQUE: XR chest 1V portable Portable AP radiograph of the chest. CLINICAL INDICATION:Male, 73 years old with history of sob; FINDINGS: Patient is rotated limiting evaluation. Lungs/Pleura: There is no evidence of pleural effusion or pneumothorax. Possible right lower lung air space opacities. Pulmonary vascularity: Unremarkable. Heart/mediastinum: Cardiomediastinal silhouette is enlarged. Musculoskeletal: No acute osseous pathology. IMPRESSION: 1. Limited examination due to patient rotation with possible right lower lung airspace opacities. Ma y represent pneumonia versus atelectasis. 2. Cardiomegaly. [facility], , 12/16/2023 12:47 PM
[2023-12-16 13:23] LABS: ALT 41 U/L (4-49); AST 30 U/L (17-59); African American GFR (CKD) >90 (>60 ml/min/1.73 sqM); Albumin 3.1 g/dL (3.5-5.0); Alkaline Phosphatase 105 U/L (38-126); Anion Gap 3 mmol/L; Blood Urea Nitrogen 11 mg/dL (9-20); Calcium 8.7 mg/dL (8.4-10.2); Carbon Dioxide 27 mmol/L (22-30); Chloride 105 mmol/L (98-107); Glucose 177 mg/dL (74-99); Magnesium 1.6 mg/dL (1.6-2.3); Non-African American GFR(CKD) >90 (>60 ml/min/1.73 sqM); Potassium 4.6 mmol/L (3.5-5.1); Sodium 135 mmol/L (137-145); Total Bilirubin 1.2 mg/dL (0.2-1.3); Total Protein 5.4 g/dL (6.3-8.2)
[2023-12-16] MEDS ORDERED: PNEUMONIA PROTOCOL UTILIZED 1 EACH MISC PO PRN (14:16)
[2023-12-16] MEDS: FUROSEMIDE 10 MG/ML 4 ML VIAL IV SCH (14:38)
[2023-12-16] MEDS: AZITHROMYCIN 500 MG in SODIUM CHLORIDE 0.9% 250 ML IVPB STA (15:14)
[2023-12-16] MEDS: ALBUTEROL NEBULIZED 2.5 MG/3 ML INHALATION SCH (15:34)
[2023-12-16] MEDS: IPRATROPIUM-ALBUTEROL 3 ML NEB INHALATION STA (15:34)
[2023-12-16] MEDS: SODIUM CHLORIDE 0.9% 250 ML IV SCH (16:53)
--- NOTE | 2023-12-17 02:46 | US ---
EXAM: US Duplex Bilateral Lower Extremities Veins CLINICAL HISTORY: ITS.REASON US Reason: rule out DVT TECHNIQUE: Real-time duplex ultrasound scan of the bilateral lower extremity veins integrating B-mode two-dimensional vascular structure, Doppler spectral analysis, color flow Doppler imaging and compression. COMPARISON: None. FINDINGS: Right deep veins: Unremarkable. No DVT in the right common femoral, femoral, proximal deep femoral or popliteal veins. The veins demonstrate normal color flow, are normally compressible, with normal phasic flow and/or augmentation response. Right superficial veins: Unremarkable. No thrombus in the visualized right great saphenous vein. Left deep veins: Unremarkable. No DVT in the left common femoral, femoral, proximal deep femoral or popliteal veins. The veins demonstrate normal color flow, are normally compressible, with normal phasic flow and/or augmentation response. Left superficial veins: Unremarkable. No thrombus in the visualized left great saphenous vein. Soft tissues: No acute findings. No popliteal cyst.. IMPRESSION: Negative for DVT in the right/left lower extremity. .
[2023-12-17] MEDS ORDERED: DEXTROSE 50% SYRINGE 50 ML IVP PRN ×2 (03:03)
--- NOTE | 2023-12-17 03:08 | P.CNPUL ---
History of Present Illness Consult date: 12/17/23 Requesting physician: Balaji Rodriguez Reason for consult: COPD Chief complaint: Acute respiratory distress History of present illness: Patient is a 73-year-old male with a documented past medical history significant for GERD, hypertension, hyperlipidemia, diabetes, stroke, COPD. Patient is currently not answering any of my questions. Patient may have history of dementia per ER documentation, I am unsure of his baseline mentation. Family not currently present, and HPI supplemented by ER documentation. On arrival to the emergency department, the ER provider reportedly noted the patient to be in respiratory distress. He was placed on BiPAP with current settings of 14/6 and FiO2 of 40%. On my evaluation, patient remains in the emergency department. He is lying in bed. Remains on BiPAP. Generating tidal volumes of 250 to 300 mL. Respiratory rate is 18. SpO2 99%. Patient is alert and follows simple commands. He shakes his head yes and no to direct questioning, however, does not speak. He denies being short of breath. Denies any pain. There are some minimal wheezing on auscultation. Chest x-ray was a limited exam as the patient is rotated. Possible right lower lung atelectasis versus infectious process. Cardiomegaly. CBC: WBC count 11.5, hemoglobin 15.3, hematocrit 47.2, platelets 151. CMP: Sodium 135, potassium 4.6, chloride 105, serum bicarb 27, BUN 11, cr eatinine 0.62, glucose 177. Lactic 2.4 and currently 2. LFTs unremarkable. Troponins not elevated. EKG: sinus tachycardia, rate 123 bpm, no obvious acute ischemic changes. Currently afebrile. Started empirically on azithromycin and Rocephin in the emergency department. Remains tachycardic. Continues on BiPAP. Review of Systems ROS unobtainable: due to mental status Past Medical History Past Medical History: GERD/Reflux, Hypertension Additional Past Medical History / Comment(s): PAST GERD. ENVIRONMENTAL ALLERGIES. History of Any Multi-Drug Resistant Organisms: None Reported Past Surgical History: Cholecystectomy, Hernia Repair, Joint Replacement Additional Past Surgical History / Comment(s): TOTAL LT HIP. CTR RT HAND. HIATAL HERNIA REPAIR. COLONOSCOPIES. Past Anesthesia/Blood Transfusion Reactions: No Reported Reaction Past Psychological History: No Psychological Hx Reported Past Alcohol Use History: None Reported Past Drug Use History: None Reported - Past Family History Mother Family Medical History: No Reported History Medications and Allergies Home Medications Medication Instructions Recorded Confirmed Type Atorvastatin [Lipitor] 10 mg PO HS 11/27/16 12/16/23 History Finasteride [Proscar] 5 mg PO DAILY 11/27/16 12/16/23 History Montelukast [Singulair] 10 mg PO HS 11/27/16 12/16/23 History Pregabalin [Lyrica] 150 mg PO BID 11/27/16 12/16/23 History Multivitamins, Thera [Multivitamin 1 tab PO DAILY 11/29/16 12/16/23 History (formulary)] Cholecalciferol [Vitamin D3 (25 75 mcg PO DAILY 12/16/23 12/16/23 History Mcg = 1000 Iu)] Fluticasone/Umeclidin/Vilanter 1 puff INHALATION RT-DAILY 12/16/23 12/16/23 History [Trelegy Ellipta 100-62.5-25] HYDROcodone/APAP 5-325MG [[place] 1 tab PO BID 12/16/23 12/16/23 History 5-325] Insulin Glargine,Hum.rec.anlog 20 units SQ DAILY 12/16/23 12/16/23 History [Lantus Solostar Pen] Ipratropium-Albuterol Nebulize 3 ml INHALATION RT-TID 12/16/23 12/16/23 History [Duoneb 0.5 mg-3 mg/3 ml Soln] Metoprolol Tartrate [Lopressor] 12.5 mg PO BID 12/16/23 12/16/23 History metFORMIN HCL [Glucophage] 500 mg PO BID-W/MEALS 12/16/23 12/16/23 History Allergies Allergy/AdvReac Type Severity Reaction Status Date / Time No Known Allergies Allergy Verified 12/16/23 13:39 Physical Exam Vitals: Vital Signs Temp Pulse Resp BP Pulse Ox FiO2 12/17/23 00:05 120 H 18 113/86 99 12/16/23 23:44 40 12/16/23 22:00 125 H 18 106/72 100 12/16/23 21:47 125 H 99 12/16/23 21:07 130 H 25 H 99/62 98 12/16/23 20:56 134 H 12/16/23 20:43 135 H 40 12/16/23 19:24 134 H 22 119/86 99 12/16/23 17:16 120 H 20 105/90 97 12/16/23 16:25 123 H 30 H 80/53 97 12/16/23 16:11 90/60 12/16/23 16:01 122 H 20 82/60 97 12/16/23 15:45 124 H 12/16/23 15:35 125 H 97 40 12/16/23 15:32 40 12/16/23 14:54 91 L 12/16/23 14:48 124 H 20 136/89 96 12/16/23 13:42 116 H 28 H 151/97 97 12/16/23 13:10 108 H 12/16/23 13:03 108 H 12/16/23 12:55 105 H 12/16/23 12:45 105 H 12/16/23 12:21 109 H 17 94/81 92 L 12/16/23 11:25 98.7 F 124 H 38 H 124/97 94 L Intake and Output 12/16/23 12/16/23 12/17/23 14:59 22:59 06:59 Output Total 500 Balance -500 Output: Urine 500 Other: Voiding Method External Catheter Weight 86.818 kg GENERAL EXAM: Alert, 73-year-old male, does follow simple commands and shakes head yes or no to direct questioning, currently on BiPAP, fairly comfortable in no apparent distress. HEAD: Normocephalic and atraumatic EYES: Normal reaction of pupils, equal size. NOSE: Clear with pink turbinates. THROAT: No erythema or exudates. NECK: No masses, no JVD. CHEST: No chest wall deformity. LUNGS: Equal air entry with faint expiratory wheezing throughout. On BiPAP with settings 16/6 and FiO2 40%. Generating tidal volumes of 350 to 400 mL. Respiratory rate 18 to 20 breaths/min. SpO2 was 99%. No conversational dyspnea or accessory muscle use. Did become tachypneic when briefly taken off BiPAP. CVS: S1 and S2 normal with no audible murmur, regular rhythm. No extra heart sounds. Tachycardic ABDOMEN: No hepatosplenomegaly, active bowel sounds, no guarding or rigidity. SPINE: No scoliosis or deformity SKIN: No rashes CENTRAL NERVOUS SYSTEM: No focal deficits, tone is normal in all 4 extremities. EXTREMITIES: There is significant unilateral leg swellin, right greater than left. No clubbing or cyanosis. Peripheral pulses are intact. Results - Laboratory Findings CBC and BMP: 12/16/23 12:10 12/16/23 13:11 PT/INR, D-dimer PT 10.8 sec (10.0-12.5) 12/16/23 12:10 INR 1.0 (<1.2) 12/16/23 12:10 Abnormal lab findings: Abnormal Labs 12/16/23 12/16/23 12/16/23 12:10 12:10 13:11 WBC 11.5 H RDW 15.8 H Neutrophils # 8.9 H Sodium 135 L Creatinine 0.62 L Glucose 177 H Plasma Lactic Acid Kyle 2.4 H* Total Protein 5.4 L Albumin 3.1 L - Diagnostic Findings Chest x-ray: image reviewed Assessment and Plan Assessment: Suspect acute COPD exacerbation, chest x-ray is of limited value, rotated exam, suspect right lower lobe atelectasis, however, unable to exclude infectious infiltrate. Cardiomegaly. Acute hypoxemic respiratory failure, currently on BiPAP Sinus tachycardia Lower extremity edema History of diabetes mellitus History of hyperlipidemia History of hypertension History of hemorrhagic stroke Plan: Patient's medications, labs, chest x-ray reviewed. Repeat chest x-ray pending for the morning Continues on BiPAP, IPAP increased to 16. Now generating adequate tidal volumes Unsure of patient's baseline mentation, check ABG to rule out hypercapnic respiratory failure Start combination of bronchodilators, budesonide, formoterol, and IV Solu-Medr ol. Unilateral lower extremity edema, check venous Doppler of lower extremities to rule out DVT Patient was started on diuretics in the emergency department, currently on receiving Lasix 40 mg 3 times daily Check NT proBNP Echocardiogram pending for the morning Continues on empiric antibiotics check procalcitonin level Check Cepheid 4 Plex Sliding scale insulin protocol added GI prophylaxis: Protonix We will continue to follow I have personally seen and examined the patient, performed the documentation and the assessment and plan as written. Number of minutes spent on the visit:20 Time with Patient: Greater than 30
[2023-12-17] MEDS: methylPREDNISolone SOD SUCCI 40 MG/ML 1 ML VIAL IV SCH (06:13)
[2023-12-17] MEDS: INSULIN ASPART (NovoLOG) 100 UNIT/ML VIAL SQ SCH (06:14)
[2023-12-17] MEDS: BUDESONIDE 1 MG/2 ML NEBU INHALATION SCH (07:13)
--- NOTE | 2023-12-17 08:01 | XR ---
EXAMINATION TYPE: XR chest 1V portable DATE OF EXAM: 12/17/2023 HISTORY: Shortness of breath. COMPARISON: 12/16/2023 TECHNIQUE: Single view of the chest is submitted. FINDINGS: Demonstrated are scattered senescent parenchymal change. Suspect basilar atelectasis. The heart is stable. Hilar and mediastinal structures are within normal limits. Degenerative changes are seen of the dorsal spine. IMPRESSION: 1. Chronic changes without evidence for acute pulmonary disease. [facility], , 12/17/2023 7:59 AM
[2023-12-17] MEDS: AZITHROMYCIN 500 MG TAB PO SCH (08:44)
[2023-12-17] MEDS: METOPROLOL TARTRATE 25 MG TAB PO SCH (08:45)
[2023-12-17] MEDS: PANTOPRAZOLE 40 MG/10 ML VIAL IVP SCH (08:46)
[2023-12-17] MEDS: FORMOTEROL FUMARATE 20 MCG/2 ML NEBU INHALATION SCH (08:53)
[2023-12-17 09:44] LABS: African American GFR (CKD) >90 (>60 ml/min/1.73 sqM); Anion Gap 9 mmol/L; Blood Urea Nitrogen 14 mg/dL (9-20); Carbon Dioxide 29 mmol/L (22-30); Chloride 98 mmol/L (98-107); Glucose 198 mg/dL (74-99); Non-African American GFR(CKD) >90 (>60 ml/min/1.73 sqM); Potassium 4.3 mmol/L (3.5-5.1); Sodium 136 mmol/L (137-145)
[2023-12-17] MEDS: ONDANSETRON 4 MG/2 ML VIAL IVP PRN (09:48)
[2023-12-17] MEDS: INSULIN DETEMIR (LEVEMIR) 100 UNIT/ML SYR SQ SCH (09:49)
[2023-12-17] MEDS: HYDROcodone/APAP 5-325MG 1 EACH TAB PO SCH (09:53)
[2023-12-17] MEDS: CHOLECALCIFEROL 25 MCG (1000 IU) TABLET PO SCH (09:53)
[2023-12-17] MEDS: FINASTERIDE 5 MG TAB PO SCH (09:53)
[2023-12-17] MEDS: PREGABALIN 75 MG CAP PO SCH (09:54)
[2023-12-17] MEDS: MULTIVITAMINS, THERA 1 EACH TAB PO SCH (09:54)
[2023-12-17 10:23] LABS: ABG Base Excess 4.5 mmol/L; ABG HCO3 29 mmol/L (21-25); ABG Oxygen Saturation 98.9 % (94-97); ABG PCO2 44 mmHg (35-45); ABG PH 7.44 (7.35-7.45); ABG PO2 119 mmHg (83-108); ABG TCO2 31 mmol/L (19-24); Allen Test Performed? Yes
[2023-12-17] MEDS: IPRATROPIUM 0.5 MG/2.5 ML NEBU INHALATION SCH (10:41)
[2023-12-17 11:02] LABS: Basophils % (A) 0 %; Eosinophils % (A) 0 %; HCT 45.8 % (39.0-53.0); HGB 14.7 gm/dL (13.0-17.5); Lymphocytes # (A) 0.8 k/uL (1.0-4.8); Lymphocytes % (A) 9 %; MCH 30.5 pg (25.0-35.0); MCHC 32.1 g/dL (31.0-37.0); MCV 94.9 fL (80.0-100.0); Mean Platelet Volume 8.7; Monocytes # (A) 0.3 k/uL (0-1.0); Monocytes % (A) 3 %; Neutrophils # (A) 8.2 k/uL (1.3-7.7); Neutrophils % (A) 87 %; Platelet Count 133 k/uL (150-450); RBC 4.83 m/uL (4.30-5.90); RDW 15.7 % (11.5-15.5); WBC 9.4 k/uL (3.8-10.6)
--- NOTE | 2023-12-17 11:57 | CT ---
EXAMINATION TYPE: CT brain wo con CT DLP: 1231.4 mGycm, Automated exposure control for dose reduction was used. DATE OF EXAM: 12/17/2023 11:34 AM COMPARISON: Prior CT Brain from 04/03/2017 . CLINICAL INDICATION:Male, 73 years old with history of AMS, history of brain bleed, AMS, history of b rain bleed TECHNIQUE: Brain: Multiple axial CT images of the brain were obtained without IV contrast. . Coronal and sagitta l reformats reviewed. FINDINGS: Brain: Extra-axial spaces: No abnormal extra-axial fluid collections. Ventricular system: Ex vacuo dilatation of the left lateral ventricle due to adjacent encephalomalaci a. Cerebral parenchyma: Age appropriate cerebral volume loss. No acute intraparenchymal hemorrhage or ma ss effect. Encephalomalacia identified within the left frontal lobe, parietal lobe, and apple radiat a from prior hemorrhage. The remaining beck-white junction is well differentiated. Scattered hypoatte nuating areas are seen within the white matter. Cerebellum: Unremarkable. Mass effect: No evidence of midline shift. Intracranial vasculature: Atherosclerotic calcifications of the intracranial vessels. Soft tissues: Normal. Calvarium/osseous structures: No depressed skull fracture. Paranasal sinuses and mastoid air cells: Clear Visualized orbits: Orbital contents are intact. Bilateral scleral calcifications. IMPRESSION: 1. No acute intracranial process. 2. Encephalomalacia identified within the left frontal lobe, parietal lobe, and apple radiata from prior hemorrhage. 3. Nonspecific white matter changes, likely secondary to chronic small vessel ischemic disease. [facility], , 12/17/2023 11:54 AM
--- NOTE | 2023-12-17 12:16 | P.CRDCN ---
History of Present Illness History of present illness: HISTORY OF PRESENT ILLNESS: This is a 73-year-old male with a past medical history significant for hyperlipidemia, hypertension, diabetes, and COPD. Patient does not follow with a drag down. We have been asked to see the patient in consultation for CHF. Patient examined at the bedside in the emergency room. Patient is not answering questions at the time of examination. However he will nod his head yes or no. He apparently presented to the hospital with a chief complaint of shortness of breath. The patient was initially placed on BiPAP. He is currently on nasal cannula. He denies any chest pain or pressure. Blood pressure stable at 112/76. Bedside telemetry reveals sinus tachycardia with heart rate around 110. Per nursing, patient started to have coffee-ground emesis this morning. DIAGNOSTICS: - EKG reveals sinus tachycardia with no signs of acute ischemia - Chest xray chronic changes without evidence for acute pulmonary disease - Venous Doppler negative for DVT in bilateral lower extremities - Laboratory data: WBC 11.5. Hemoglobin 15.3. Platelet count 151. D-dimer 1.16. Sodium 135. Potassium 4.6. BUN 11. Creatinine 0.62. Troponin negative x 3 - Current home cardiac medications include Lipitor 10 mg at night, metoprolol tartrate 12.5 mg twice a day - No previous echocardiogram, stress test, or cardiac catheterization available in EMR for review REVIEW OF SYSTEMS: At the time of my exam: CONSTITUTIONAL: Denies fever or chills. HEENT: Denies blurred vision, vision changes, or eye pain. Denies hemoptysis CARDIOVASCULAR: Denies chest pain. Denies orthopnea. Denies PND. Denies palpitations RESPIRATORY: Denies shortness of breath. GASTROINTESTINAL: Denies abdominal pain. Denies nausea or vomiting. HEMATOLOGIC: Denies bleeding disorders. GENITOURINARY: Denies any blood in urine. SKIN: Denies pruitis. Denies rash. PHYSICAL EXAM: VITAL SIGNS: Reviewed. GENERAL: Well-developed in no acute distress. HEENT: Head is normocephalic. Pupils are equal, round. Sclerae anicteric. Mucous membranes of the mouth are moist. Neck supple. No JVD or thyromegaly LUNGS: Respirations even and unlabored. Lungs essentially clear to auscultation bilaterally. HEART: Mildly tachycardic. Regular rate and rhythm. S1 and S2 heard. ABDOMEN: Soft. Nondistended. Nontender. EXTREMITIES: Normal range of motion. No clubbing or cyanosis. Peripheral pulses intact. No lower extremity edema NEUROLOGIC: Awake and alert. Able to nod yes or no to questions. ASSESSMENT: Shortness of breath Acute hypoxic respiratory failure requiring BiPAP Sinus tachycardia Acute COPD exacerbation Congestive heart failure, ruled out, BNP normal and no clinical evidence of fluid overload Hypertension Hyperlipidemia Diabetes History of CVA Possible GI bleed, coffee-ground emesis per nursing PLAN: 2D echo has been ordered. To be completed tomorrow due to tachycardia Pulmonary following. IV steroids per pulmonary service. Discontinue IV Lasix. Patient's proBNP within normal limits. Upon examination, patient has no JVD, crackles, or lower extremity edema. He is clinically not in heart failure. Continue additional cardiac medications Continue telemetry monitoring Check TSH Further recommendations pending patient course Nurse practitioner note has been reviewed by physician. Signing provider agrees with the documented findings, assessment, and plan of care documented by FURNITURE DELIVERY DRIVER as a scribe. Past Medical History Past Medical History: Heart Failure, COPD, CVA/TIA, Diabetes Mellitus, GERD/Reflux, Hyperlipidemia, Hypertension, Memory Impairment, Neurologic Disorder, Pneumonia, Renal Disease Additional Past Medical History / Comment(s): Right sided weakness, ENVIRONMENTAL ALLERGIES. History of Any Multi-Drug Resistant Organisms: None Reported Past Surgical History: Cholecystectomy, Hernia Repair, Joint Replacement Additional Past Surgical History / Comment(s): TOTAL LT HIP. CTR RT HAND. HIATAL HERNIA REPAIR. COLONOSCOPIES. Past Anesthesia/Blood Transfusion Reactions: No Reported Reaction Past Psychological History: No Psychological Hx Reported Smoking Status: Former smoker Past Alcohol Use History: None Reported Past Drug Use History: None Reported - Past Family History Mother Family Medical History: No Reported History Medications and Allergies Home Medications Medication Instructions Recorded Confirmed Type Atorvastatin [Lipitor] 10 mg PO HS 11/27/16 12/16/23 History Finasteride [Proscar] 5 mg PO DAILY 11/27/16 12/16/23 History Montelukast [Singulair] 10 mg PO HS 11/27/16 12/16/23 History Pregabalin [Lyrica] 150 mg PO BID 11/27/16 12/16/23 History Multivitamins, Thera [Multivitamin 1 tab PO DAILY 11/29/16 12/16/23 History (formulary)] Cholecalciferol [Vitamin D3 (25 75 mcg PO DAILY 12/16/23 12/16/23 History Mcg = 1000 Iu)] Fluticasone/Umeclidin/Vilanter 1 puff INHALATION RT-DAILY 12/16/23 12/16/23 History [Trelegy Ellipta 100-62.5-25] HYDROcodone/APAP 5-325MG [[place] 1 tab PO BID 12/16/23 12/16/23 History 5-325] Insulin Glargine,Hum.rec.anlog 20 units SQ DAILY 12/16/23 12/16/23 History [Lantus Solostar Pen] Ipratropium-Albuterol Nebulize 3 ml INHALATION RT-TID 12/16/23 12/16/23 History [Duoneb 0.5 mg-3 mg/3 ml Soln] Metoprolol Tartrate [Lopressor] 12.5 mg PO BID 12/16/23 12/16/23 History metFORMIN HCL [Glucophage] 500 mg PO BID-W/MEALS 12/16/23 12/16/23 History Allergies Allergy/AdvReac Type Severity Reaction Status Date / Time No Known Allergies Allergy Verified 12/16/23 13:39 Physical Exam Vitals: Vital Signs Temp Pulse Pulse Resp BP BP Pulse Ox 12/17/23 07:32 126 H 12/17/23 07:13 128 H 12/17/23 07:12 12/17/23 05:58 12/17/23 04:00 98.1 F 140 H 25 H 113/81 98 12/17/23 00:05 120 H 18 113/86 99 12/16/23 23:44 12/16/23 22:00 125 H 18 106/72 100 12/16/23 21:47 125 H 99 12/16/23 21:07 130 H 25 H 99/62 98 12/16/23 20:56 134 H 12/16/23 20:43 135 H 12/16/23 19:24 134 H 22 119/86 99 12/16/23 17:16 120 H 20 105/90 97 12/16/23 16:25 123 H 30 H 80/53 97 12/16/23 16:11 90/60 12/16/23 16:01 122 H 20 82/60 97 12/16/23 15:45 124 H 12/16/23 15:35 125 H 97 12/16/23 15:32 12/16/23 14:54 91 L 12/16/23 14:48 124 H 20 136/89 96 12/16/23 13:42 116 H 28 H 151/97 97 12/16/23 13:10 108 H 12/16/23 13:03 108 H 12/16/23 12:55 105 H 12/16/23 12:45 105 H 12/16/23 12:21 109 H 17 94/81 92 L 12/16/23 11:25 98.7 F 124 H 38 H 124/97 94 L FiO2 12/17/23 07:32 12/17/23 07:13 12/17/23 07:12 40 12/17/23 05:58 40 12/17/23 04:00 40 12/17/23 00:05 12/16/23 23:44 40 12/16/23 22:00 12/16/23 21:47 12/16/23 21:07 12/16/23 20:56 12/16/23 20:43 40 12/16/23 19:24 12/16/23 17:16 12/16/23 16:25 12/16/23 16:11 12/16/23 16:01 12/16/23 15:45 12/16/23 15:35 40 12/16/23 15:32 40 12/16/23 14:54 12/16/23 14:48 12/16/23 13:42 12/16/23 13:10 12/16/23 13:03 12/16/23 12:55 12/16/23 12:45 12/16/23 12:21 12/16/23 11:25 Intake and Output 12/16/23 12/17/23 12/17/23 22:59 06:59 14:59 Output Total 500 Balance -500 Output: Urine 500 Other: Voiding Method External Catheter Results 12/17/23 10:26 12/17/23 09:01 Cardiac Enzymes 12/16/23 12/16/23 12/16/23 Range/Units 12:10 13:11 15:09 AST 30 (17-59) U/L Troponin I 0.020 0.025 (0.000-0.034) ng/mL 12/16/23 Range/Units 18:22 AST (17-59) U/L Troponin I 0.025 (0.000-0.034) ng/mL Coagulation 12/16/23 Range/Units 12:10 PT 10.8 (10.0-12.5) sec APTT 24.3 (22.0-30.0) sec CBC 12/16/23 Range/Units 12:10 WBC 11.5 H (3.8-10.6) k/uL RBC 5.01 (4.30-5.90) m/uL Hgb 15.3 (13.0-17.5) gm/dL Hct 47.2 (39.0-53.0) % Plt Count 151 (150-450) k/uL Comprehensive Metabolic Panel 12/16/23 Range/Units 13:11 Sodium 135 L (137-145) mmol/L Potassium 4.6 (3.5-5.1) mmol/L Chloride 105 (98-107) mmol/L Carbon Dioxide 27 (22-30) mmol/L BUN 11 (9-20) mg/dL Creatinine 0.62 L (0.66-1.25) mg/dL Glucose 177 H (74-99) mg/dL Calcium 8.7 (8.4-10.2) mg/dL AST 30 (17-59) U/L ALT 41 (4-49) U/L Alkaline Phosphatase 105 (38-126) U/L Total Protein 5.4 L (6.3-8.2) g/dL Albumin 3.1 L (3.5-5.0) g/dL Current Medications Generic Name Dose Route Start Last Admin Trade Name Freq PRN Reason Stop Dose Admin Albuterol Sulfate 2.5 mg 12/16/23 16:00 12/17/23 07:13 Albuterol Nebulized 2.5 Mg/3 Ml INHALATION 2.5 mg RT-QID JUAN Administration Azithromycin 500 mg 12/17/23 09:00 Azithromycin 500 Mg Tab PO 12/18/23 09:01 DAILY [facility] Protocol Budesonide 1 mg 12/17/23 08:00 12/17/23 07:13 Budesonide 1 Mg/2 Ml Nebu INHALATION 1 mg RT-BID JUAN Administration Dextrose/Water 25 ml 12/17/23 03:03 Dextrose 50% Syringe 50 Ml IVP PER PROTOCOL PRN Hypoglycemia Protocol Dextrose/Water 50 ml 12/17/23 03:03 Dextrose 50% Syringe 50 Ml IVP PER PROTOCOL PRN Hypoglycemia Protocol Formoterol Fumarate 20 mcg 12/17/23 08:00 Formoterol Fumarate 20 Mcg/2 Ml Nebu INHALATION RT-BID JUAN Furosemide 40 mg 12/16/23 15:00 12/17/23 06:13 Furosemide 10 Mg/Ml 4 Ml Vial IV 40 mg Q8H JUAN Administration Ceftriaxone Sodium 2 gm/ 50 mls @ 100 mls/hr 12/17/23 09:00 Sodium Chloride IVPB 12/20/23 09:29 Q24HR JUAN Protocol Insulin Aspart 0 unit 12/17/23 07:30 12/17/23 06:14 Insulin Aspart (Novolog) 100 Unit/Ml Vial SQ 2 unit ACHS JUAN Administration Protocol Methylprednisolone Sodium Succinate 40 mg 12/17/23 06:00 12/17/23 06:13 Methylprednisolone Sod Succi 40 Mg/Ml 1 Ml Vial IV 40 mg Q6HR JUAN Administration Miscellaneous Information 1 each 12/16/23 14:16 Pneumonia Protocol Utilized 1 Each Misc PO ONCE PRN Per Protocol Pantoprazole Sodium 40 mg 12/17/23 09:00 Pantoprazole 40 Mg/10 Ml Vial IVP DAILY JUAN Intake and Output 12/16/23 12/17/23 12/17/23 22:59 06:59 14:59 Output Total 500 Balance -500 Output: Urine 500 Other: Voiding Method External Catheter 12/16/23 12:10 12/16/23 13:11
[2023-12-17 13:19] LABS: T4, Free (Free Thyroxine) 2.09 ng/dL (0.78-2.19)
[2023-12-17 15:26] VITALS: BMI 28.3
[2023-12-17] MEDS ORDERED: ONDANSETRON 4 MG/2 ML VIAL IVP PRN (15:44)
--- NOTE | 2023-12-17 17:18 | CA ---
Transthoracic Echo Report Name: Misbah Simmons Age: 73 Gender: M : 1950 Exam Date: 12/17/2023 09:13 Exam Location: [facility] Ht (in): 69 Wt (lb): 195 Ordering Physician: Balaji Rodriguez DO Attending/Referring Phys: [id number], Jennifer Spool Tender Monica Tijerina, [id number] Procedure CPT: Indications: Heart failure Cardiac Hx: Technical Quality: Very technically difficult study Contrast 1: Definity Total Dose (mL): 2 Contrast 2: Total Dose (mL): MEASUREMENTS (Male / Female) Normal Values 2D ECHO LV Diastolic Diameter PLAX 3.3 cm 4.2 - 5.9 / 3.9 - 5.3 cm LV Systolic Diameter PLAX 1.6 cm IVS Diastolic Thickness 0.9 cm 0.6 - 1.0 / 0.6 - 0.9 cm LVPW Diastolic Thickness 1.1 cm 0.6 - 1.0 / 0.6 - 0.9 cm LV Relative Wall Thickness 0.6 RV Internal Dim ED PLAX 1.0 cm LA Volume 29.4 cm??? 18 - 58 / 22 - 52 cm??? LA Volume Index 14.0 cm???/m??? 16 - 28 cm???/m??? DOPPLER AV Peak Velocity 114.3 cm/s AV Peak Gradient 5.2 mmHg MV Area PHT 3.6 cm??? Mitral E Point Velocity 48.5 cm/s Mitral A Point Velocity 85.2 cm/s Mitral E to A Ratio 0.6 MV Deceleration Time 209.4 ms TR Peak Velocity 230.9 cm/s TR Peak Gradient 21.3 mmHg Right Ventricular Systolic Press 26.3 mmHg FINDINGS Left Ventricle Left ventricular ejection fraction is estimated at 40-45 %. Left ventricular cavity size normal. Left ventricular wall thickness normal. Mildly reduced global left ventricular systolic function. Right Ventricle Right ventricle not well visualized. Right ventricular systolic pressure within normal limits. Right Atrium Normal right atrial size. Left Atrium Normal left atrial size. Mitral Valve Mitral valve not well visualized. Aortic Valve Aortic valve not well visualized. No aortic stenosis. No aortic regurgitation. Tricuspid Valve Tricuspid valve not well visualized. Pulmonic Valve Pulmonic valve not well visualized. Pericardium No pericardial or pleural effusion. Echo free space anterior to the right ventricle likely represents a fat pad. Aorta CONCLUSIONS Mild to moderate LV systolic dysfunction with an ejection fraction of 40 to 45% Technically suboptimal study secondary to poor echo windows Previewed by: Dr. Saurabh Bee MD (Electronically Signed) Final Date: 17 December 2023 17:18
[2023-12-17] MEDS: ATORVASTATIN 20 MG TAB PO SCH (21:13)
[2023-12-17] MEDS: MONTELUKAST 10 MG TAB PO SCH (21:14)
--- NOTE | 2023-12-17 21:54 | P.HPIM ---
History of Present Illness H&P Date: 12/17/23 Chief Complaint: Shortness of breath Patient is an 72-year-old male with known history of CHF, COPD, diabetes type 2 insulin-dependent, history of CVA/TIA with right-sided weakness, GERD, hypertension, hyperlipidemia, memory impairment, osteoarthritis and prior history of smoking was brought to ER due to respiratory distress. Patient was placed on BiPAP in the ER. Patient has been having worsening shortness of breath and low oxygen level. Patient is able to say yes or no questions but unable to provide good history. Laboratory data showed WBC 11.4 hemoglobin 15.3 and platelets 151 Sodium 134 potassium 4.6 chloride 105 bicarb is 27 BUN 11 creatinine 0.16 blood sugar 177 and lactic acid 2.4 on admission liver enzymes not elevated. Troponin x 3 negative. Procalcitonin level is 0.23, pro BNP 188. Patient 1 episode of coffee-ground emesis this morning. Hemoglobin is fairly stable from last night. EKG showed sinus tachycardia with heart rate 123 Chest x-ray showed limited examination due to patient rotation with possible right lower lobe airspace opacities. May represent pneumonia versus atelectasis. Cardiomegaly. Right lower extremity duplex was done due to more swelling compared to left. Negative for DVT in the right lower extremity. Repeat chest x-ray this morning showed chronic changes without evidence for acute pulmonary disease. Patient was given a dose of ceftriaxone and azithromycin in the ER as well as DuoNebs.. He was also given a dose of IV Lasix in the ER. Review of Systems Complete review of systems could not be obtained from the patient except as per HPI Past Medical History Past Medical History: Heart Failure, COPD, CVA/TIA, Diabetes Mellitus, GERD/Reflux, Hyperlipidemia, Hypertension, Memory Impairment, Neurologic Disorder, Pneumonia, Renal Disease Additional Past Medical History / Comment(s): Right sided weakness, ENVIRONMENTAL ALLERGIES. History of Any Multi-Drug Resistant Organisms: None Reported Past Surgical History: Cholecystectomy, Hernia Repair, Joint Replacement Additional Past Surgical History / Comment(s): TOTAL LT HIP. CTR RT HAND. HIATAL HERNIA REPAIR. COLONOSCOPIES. Past Anesthesia/Blood Transfusion Reactions: No Reported Reaction Past Psychological History: No Psychological Hx Reported Smoking Status: Former smoker Past Alcohol Use History: None Reported Past Drug Use History: None Reported - Past Family History Mother Family Medical History: No Reported History Medications and Allergies Home Medications Medication Instructions Recorded Confirmed Type Atorvastatin [Lipitor] 10 mg PO HS 11/27/16 12/16/23 History Finasteride [Proscar] 5 mg PO DAILY 11/27/16 12/16/23 History Montelukast [Singulair] 10 mg PO HS 11/27/16 12/16/23 History Pregabalin [Lyrica] 150 mg PO BID 11/27/16 12/16/23 History Multivitamins, Thera [Multivitamin 1 tab PO DAILY 11/29/16 12/16/23 History (formulary)] Cholecalciferol [Vitamin D3 (25 75 mcg PO DAILY 12/16/23 12/16/23 History Mcg = 1000 Iu)] Fluticasone/Umeclidin/Vilanter 1 puff INHALATION RT-DAILY 12/16/23 12/16/23 History [Trelegy Ellipta 100-62.5-25] HYDROcodone/APAP 5-325MG [[place] 1 tab PO BID 12/16/23 12/16/23 History 5-325] Insulin Glargine,Hum.rec.anlog 20 units SQ DAILY 12/16/23 12/16/23 History [Lantus Solostar Pen] Ipratropium-Albuterol Nebulize 3 ml INHALATION RT-TID 12/16/23 12/16/23 History [Duoneb 0.5 mg-3 mg/3 ml Soln] Metoprolol Tartrate [Lopressor] 12.5 mg PO BID 12/16/23 12/16/23 History metFORMIN HCL [Glucophage] 500 mg PO BID-W/MEALS 12/16/23 12/16/23 History Allergies Allergy/AdvReac Type Severity Reaction Status Date / Time No Known Allergies Allergy Verified 12/16/23 13:39 Physical Exam Vitals: Vital Signs Temp Pulse Pulse Resp BP BP Pulse Ox 12/17/23 10:17 105 H 20 112/76 97 12/17/23 08:27 140 H 22 121/99 97 12/17/23 07:32 126 H 12/17/23 07:13 128 H 12/17/23 07:12 12/17/23 05:58 12/17/23 04:00 98.1 F 140 H 25 H 113/81 98 12/17/23 00:05 120 H 18 113/86 99 12/16/23 23:44 12/16/23 22:00 125 H 18 106/72 100 12/16/23 21:47 125 H 99 12/16/23 21:07 130 H 25 H 99/62 98 12/16/23 20:56 134 H 12/16/23 20:43 135 H 12/16/23 19:24 134 H 22 119/86 99 12/16/23 17:16 120 H 20 105/90 97 12/16/23 16:25 123 H 30 H 80/53 97 12/16/23 16:11 90/60 12/16/23 16:01 122 H 20 82/60 97 12/16/23 15:45 124 H 12/16/23 15:35 125 H 97 12/16/23 15:32 12/16/23 14:54 91 L 12/16/23 14:48 124 H 20 136/89 96 12/16/23 13:42 116 H 28 H 151/97 97 12/16/23 13:10 108 H 12/16/23 13:03 108 H 12/16/23 12:55 105 H 12/16/23 12:45 105 H 12/16/23 12:21 109 H 17 94/81 92 L 12/16/23 11:25 98.7 F 124 H 38 H 124/97 94 L FiO2 12/17/23 10:17 12/17/23 08:27 12/17/23 07:32 12/17/23 07:13 12/17/23 07:12 40 12/17/23 05:58 40 12/17/23 04:00 40 12/17/23 00:05 12/16/23 23:44 40 12/16/23 22:00 12/16/23 21:47 12/16/23 21:07 12/16/23 20:56 12/16/23 20:43 40 12/16/23 19:24 12/16/23 17:16 12/16/23 16:25 12/16/23 16:11 12/16/23 16:01 12/16/23 15:45 12/16/23 15:35 40 12/16/23 15:32 40 12/16/23 14:54 12/16/23 14:48 12/16/23 13:42 12/16/23 13:10 12/16/23 13:03 12/16/23 12:55 12/16/23 12:45 12/16/23 12:21 12/16/23 11:25 Intake and Output 12/16/23 12/17/23 12/17/23 22:59 06:59 14:59 Output Total 500 1000 Balance -500 -1000 Output: Urine 500 1000 Other: Voiding Method External Catheter PHYSICAL EXAMINATION: Patient is lying in the bed comfortably, no acute distress, awake alert and oriented.. HEENT: Normocephalic. Neck is supple. Pupils reactive. Nostrils clear. Oral cavity is moist. Neck reveals no JVD, carotid bruits, or thyromegaly. CHEST EXAMINATION: Trachea is central. Symmetrical expansion. Bibasilar diminished sounds otherwise lung navarro clear to auscultation and percussion. CARDIAC: Normal S1, S2 with no gallops. No murmurs, tachycardia. ABDOMEN: Soft. Bowel sounds normal. No organomegaly. No abdominal bruits. Extremities: reveal no edema. No clubbing or cyanosis Neurologically awake, alert, oriented x 1-2. Right-sided residual weakness. Skin: No rash or skin lesions. Psychiatric: Coperative. Nonsuicidal Musculoskeletal: No joint swelling or deformity. Results CBC & Chem 7: 12/17/23 10:26 12/17/23 09:01 Labs: Abnormal Lab Results - Last 24 Hours (Table) 12/16/23 12/16/23 12/16/23 Range/Units 12:10 12:10 13:11 WBC 11.5 H (3.8-10.6) k/uL RDW 15.8 H (11.5-15.5) % Neutrophils # 8.9 H (1.3-7.7) k/uL D-Dimer (<0.60) mg/L FEU ABG pO2 (83-108) mmHg ABG HCO3 (21-25) mmol/L ABG Total CO2 (19-24) mmol/L ABG O2 Saturation (94-97) % Sodium 135 L (137-145) mmol/L Creatinine 0.62 L (0.66-1.25) mg/dL Glucose 177 H (74-99) mg/dL Plasma Lactic Acid Kyle 2.4 H* (0.7-2.0) mmol/L Total Protein 5.4 L (6.3-8.2) g/dL Albumin 3.1 L (3.5-5.0) g/dL 12/17/23 12/17/23 12/17/23 Range/Units 01:20 02:41 09:01 WBC (3.8-10.6) k/uL RDW (11.5-15.5) % Neutrophils # (1.3-7.7) k/uL D-Dimer 1.16 H (<0.60) mg/L FEU ABG pO2 119 H (83-108) mmHg ABG HCO3 29 H (21-25) mmol/L ABG Total CO2 31 H (19-24) mmol/L ABG O2 Saturation 98.9 H (94-97) % Sodium 136 L (137-145) mmol/L Creatinine (0.66-1.25) mg/dL Glucose 198 H (74-99) mg/dL Plasma Lactic Acid Kyle (0.7-2.0) mmol/L Total Protein (6.3-8.2) g/dL Albumin (3.5-5.0) g/dL Thrombosis Risk Factor Assmnt - DVT/VTE Prophylaxis DVT/VTE Prophylaxis: Pharmacologic Prophylaxis ordered Assessment and Plan Assessment: Acute hypoxic respiratory failure requiring BiPAP on admission Acute COPD exacerbation Coffee-ground emesis x 1. Rule out GI bleed. Possible pneumonia less likely Sinus tachycardia Right lower extremity swelling more than left. Duplex scan is negative for DVT. Chronic CHF with mildly reduced ejection fraction Hypertension Hyperlipidemia Diabetes type 2 insulin-dependent History of CVA/TIA with right-sided weakness Cognitive impairment/dementia Osteoarthritis Prior history of smoking DVT prophylaxis with heparin subcu GI prophylaxis with PPI Plan: Patient will be continued on oxygen supplementation. Off BiPAP currently. Patient was given a dose of IV Lasix in the ER. Continue with DuoNebs, Pulmicort/Perforomist and IV Solu-Medrol 40 mg IV every 6 hourly. Continue with antibiotics ceftriaxone and azithromycin empirically. Continue with PPI and monitor H&H Symptomatic management for nausea and vomiting. GI and DVT prophylaxis. Right lower extremity + is negative for DVT. 2D echocardiogram was done. Follow-up TSH and free T4 level. Cardiology and pulmonary is on board. Time with Patient: Greater than 30
[2023-12-18] MEDS: HEPARIN SODIUM,PORCINE 5,000 UNIT/ML 1 ML VIAL SQ SCH (00:10)
[2023-12-18] MEDS: SODIUM CHLORIDE 0.9% 1,000 ML IV SCH (00:10)
[2023-12-18 06:26] LABS: Basophils % (A) 0 %; Eosinophils % (A) 0 %; HCT 42.7 % (39.0-53.0); HGB 13.6 gm/dL (13.0-17.5); Lymphocytes # (A) 1.3 k/uL (1.0-4.8); Lymphocytes % (A) 16 %; MCH 30.3 pg (25.0-35.0); MCHC 31.8 g/dL (31.0-37.0); MCV 95.1 fL (80.0-100.0); Mean Platelet Volume 8.6; Monocytes # (A) 0.4 k/uL (0-1.0); Monocytes % (A) 5 %; Neutrophils # (A) 6.3 k/uL (1.3-7.7); Neutrophils % (A) 78 %; Platelet Count 139 k/uL (150-450); RBC 4.48 m/uL (4.30-5.90); RDW 15.6 % (11.5-15.5); WBC 8.1 k/uL (3.8-10.6)
[2023-12-18 07:39] LABS: African American GFR (CKD) >90 (>60 ml/min/1.73 sqM); Anion Gap 5 mmol/L; Blood Urea Nitrogen 25 mg/dL (9-20); Calcium 8.9 mg/dL (8.4-10.2); Carbon Dioxide 32 mmol/L (22-30); Chloride 98 mmol/L (98-107); Glucose 202 mg/dL (74-99); Non-African American GFR(CKD) 89 (>60 ml/min/1.73 sqM); Potassium 4.4 mmol/L (3.5-5.1); Sodium 135 mmol/L (137-145)
[2023-12-18] MEDS ORDERED: NON FORMULARY DRUG (Fluticasone/Umeclidin/Vilanter [Trelegy Ellipta 100-62.5-25] 1 EACH Bl INHALATION SCH (08:00)
--- NOTE | 2023-12-18 11:08 | CT ---
EXAMINATION TYPE: CT chest angio for PE CT DLP: 421.3 mGycm, Automated exposure control for dose reduction was used. DATE OF EXAM: 12/18/2023 10:35 AM COMPARISON: . Chest radiograph 12/17/2023 CLINICAL INDICATION:Male, 73 years old with history of Elevated D-dimer; Elevated D-dimer TECHNIQUE/CONTRAST: CTA scan of the thorax is performed with IV Contrast, patient injected with 100 mL of Isovue 370, pul monary embolism protocol. MIP images are created and reviewed. FINDINGS: Pulmonary Artery: Pulmonary arteries of normal size. Filling defect identified within the left lower lobe subsegmental pulmonary artery (series 401, image 90).No reflux of contrast in the IVC. Lungs/Pleura: Mild centrilobular emphysematous changes. Dependent bilateral lower lobe subsegmental a telectasis. No focal consolidation. No pneumothorax. No suspicious pulmonary nodule or mass. Airway: Large airways are patent. Heart: Heart is within normal limits for size.. No flattening of the interventricular septum. No nadeen cardial effusion. Prominent epicardial fat. Vasculature: No evidence of aortic aneurysm. Mediastinum: No gross evidence of adenopathy. Musculoskeletal: No acute osseous abnormalities. Mild multilevel degenerative disease. Increased kyph osis of the upper thoracic spine. Soft Tissues: Unremarkable. Lower neck: No significant findings. Upper Abdomen: Gallbladder is surgically absent. Surgical changes at the GE junction. IMPRESSION: 1. Acute pulmonary embolism involving a left lower lobe subsegmental pulmonary artery. No evidence fo r right heart strain. 2. Dependent bilateral lower lobe subsegmental atelectasis. [facility], , 12/18/2023 11:05 AM
[2023-12-18] MEDS: HEPARIN SOD,PORK IN 0.45% NACL 25,000 UNIT in 0.45% NACL 1 250ML.BAG IV SCH (13:59)
--- NOTE | 2023-12-18 14:36 | P.PN ---
Subjective HISTORY OF PRESENT ILLNESS: This is a 73-year-old male with a past medical history significant for hyperlipidemia, hypertension, diabetes, and COPD. Patient does not follow with a dissolver operator. We have been asked to see the patient in consultation for CHF. Patient examined at the bedside in the emergency room. Patient is not answering questions at the time of examination. However he will nod his head yes or no. He apparently presented to the hospital with a chief complaint of shortness of breath. The patient was initially placed on BiPAP. He is currently on nasal cannula. He denies any chest pain or pressure. Blood pressure stable at 112/76. Bedside telemetry reveals sinus tachycardia with heart rate around 110. Per nursing, patient started to have coffee-ground emesis this morning. DIAGNOSTICS: - EKG reveals sinus tachycardia with no signs of acute ischemia - Chest xray chronic changes without evidence for acute pulmonary disease - Venous Doppler negative for DVT in bilateral lower extremities - Laboratory data: WBC 11.5. Hemoglobin 15.3. Platelet count 151. D-dimer 1.16. Sodium 135. Potassium 4.6. BUN 11. Creatinine 0.62. Troponin negative x 3 - Current home cardiac medications include Lipitor 10 mg at night, metoprolol tartrate 12.5 mg twice a day - No previous echocardiogram, stress test, or cardiac catheterization available in EMR for review 12/18/2023 Patient examined this morning the bedside. Patient denies chest pain or pressure. He denies shortness of breath. He remains on 2 L nasal cannula with oxygen saturations greater than 92%. Echocardiogram completed revealing ejection fraction 40 to 45% with intracardiac valves not well-visualized. CT of the brain completed which was negative for acute process. Chest CTA completed revealing acute pulmonary embolism involving left lower lobe subsegmental pulmonary artery. No evidence for heart strain. Per nursing, patient has had no further episodes of coffee-ground emesis. Hemoglobin stable at 13.6. PHYSICAL EXAM: VITAL SIGNS: Reviewed. GENERAL: Well-developed in no acute distress. HEENT: Head is normocephalic. Pupils are equal, round. Sclerae anicteric. Mucous membranes of the mouth are moist. Neck supple. No JVD or thyromegaly LUNGS: Respirations even and unlabored. Lungs with expiratory wheezing noted. HEART: Mildly tachycardic. Regular rate and rhythm. S1 and S2 heard. ABDOMEN: Soft. Nondistended. Nontender. EXTREMITIES: Normal range of motion. No clubbing or cyanosis. Peripheral pulses intact. No lower extremity edema NEUROLOGIC: Awake and alert. Able to nod yes or no to questions. ASSESSMENT: Shortness of breath Acute hypoxic respiratory failure requiring BiPAP Sinus tachycardia Acute COPD exacerbation Acute left lower lobe pulmonary embolism Congestive heart failure, ruled out, BNP normal and no clinical evidence of fluid overload Hypertension Hyperlipidemia Diabetes History of CVA Possible GI bleed, coffee-ground emesis per nursing, since resolved PLAN: Continue current cardiac medications Patient has been started on IV heparin for acute PE Continue telemetry monitoring No further inpatient recommendations from a cardiac standpoint We will sign off. Please reconsult if needed. Nurse practitioner note has been reviewed by physician. Signing provider agrees with the documented findings, assessment, and plan of care documented by DIRECTOR SPEECH AND HEARING as a scribe. Objective - Vital Signs Vital signs: Vital Signs Temp 98.1 F 12/18/23 09:05 Pulse 104 H 12/18/23 12:16 Resp 17 12/18/23 11:40 BP 102/65 12/18/23 11:40 Pulse Ox 97 12/18/23 11:40 FiO2 40 12/17/23 07:12 Intake & Output 12/17/23 12/18/23 12/18/23 18:59 06:59 18:59 Intake Total 368 240 120 Output Total 1350 200 550 Balance -982 40 -430 Weight 86.818 kg 84.5 kg Intake: Oral 368 240 120 Output: Urine 1350 200 550 Other: Voiding Method External Catheter External Catheter External Catheter # Bowel Movements 1 - Labs CBC & Chem 7: 12/18/23 05:28 12/18/23 05:28 Labs: Abnormal Lab Results - Last 24 Hours (Table) 12/18/23 12/18/23 12/18/23 Range/Units 05:28 05:28 05:28 RDW 15.6 H (11.5-15.5) % Plt Count 139 L (150-450) k/uL Sodium 135 L (137-145) mmol/L Carbon Dioxide 32 H (22-30) mmol/L BUN 25 H (9-20) mg/dL Glucose 202 H (74-99) mg/dL Hemoglobin A1c 11.1 H (<=6.0) % Microbiology - Last 24 Hours (Table) 12/16/23 14:38 Blood Culture - Preliminary Blood
[2023-12-18] MEDS: IPRATROPIUM-ALBUTEROL 3 ML NEB INHALATION SCH (15:59)
--- NOTE | 2023-12-18 16:16 | P.PN ---
Subjective Progress Note Date: 12/18/23 Patient is a 73-year-old male with a documented past medical history significant for GERD, hypertension, hyperlipidemia, diabetes, stroke, COPD. Patient is currently not answering any of my questions. Patient may have history of dementia per ER documentation, I am unsure of his baseline mentation. Family not currently present, and HPI supplemented by ER documentation. On arrival to the emergency department, the ER provider reportedly noted the patient to be in respiratory distress. He was placed on BiPAP with current settings of 14/6 and FiO2 of 40%. On my evaluation, patient remains in the emergency department. He is lying in bed. Remains on BiPAP. Generating tidal volumes of 250 to 300 mL. Respiratory rate is 18. SpO2 99%. Patient is alert and follows simple commands. He shakes his head yes and no to direct questioning, however, does not speak. He denies being short of breath. Denies any pain. There are some minimal wheezing on auscultation. Chest x-ray was a limited exam as the patient is rotated. Possible right lower lung atelectasis versus infectious process. Cardiomegaly. CBC: WBC count 11.5, hemoglobin 15.3, hematocrit 47.2, platelets 151. CMP: Sodium 135, potassium 4.6, chloride 105, serum bicarb 27, BUN 11, creatinine 0.62, glucose 177. Lactic 2.4 and currently 2. LFTs unremarkable. Troponins not elevated. EKG: sinus tachycardia, rate 123 bpm, no obvious acute ischemic changes. Currently afebrile. Started empirically on azithromycin and Rocephin in the emergency department. Remains tachycardic. Continues on BiPAP. The patient is seen today December 18, 2023 in follow-up on the selective care unit. He is currently resting in bed. Awake and alert in no acute distress. Maintaining O2 saturations in the 90s on 2 L/min per nasal cannula. Doppler of the lower extremities were negative for DVT bilaterally. Follow-up chest x-ray revealed chronic changes without acute pulmonary disease. Echocardiogram revealed impaired left ventricular systolic function with ejection fraction 40 [address] 45%. CT scan of the brain revealed no acute intracranial process. Blood cultures revealed no growth to date. White count 8.1. Hemoglobin 13.6. Platelets 139. Sodium 135. Potassium 4.4. Bicarb 32. BUN 25. Creatinine 0.77. Glucose 272. Stool for occult blood positive. He is continued on bronchodilators and steroids. Objective - Vital Signs Vital signs: Vital Signs Temp 98.1 F 12/18/23 09:05 Pulse 88 12/18/23 16:00 Resp 17 12/18/23 11:40 BP 102/65 12/18/23 11:40 Pulse Ox 97 12/18/23 11:40 FiO2 40 12/17/23 07:12 Intake & Output 12/17/23 12/18/23 12/18/23 18:59 06:59 18:59 Intake Total 368 240 320 Output Total 1350 200 550 Balance -982 40 -230 Weight 86.818 kg 84.5 kg Intake: Oral 368 240 320 Output: Urine 1350 200 550 Other: Voiding Method External Catheter External Catheter External Catheter # Bowel Movements 1 - Exam GENERAL EXAM: Alert, 73-year-old male, does follow simple commands and shakes head yes or no to direct questioning, on 2 L nasal cannula, comfortable in no apparent distress. HEAD: Normocephalic and atraumatic EYES: Normal reaction of pupils, equal size. NOSE: Clear with pink turbinates. THROAT: No erythema or exudates. NECK: No masses, no JVD. CHEST: No chest wall deformity. LUNGS: Equal air entry with faint expiratory wheezing throughout. No conversational dyspnea or accessory muscle use. CVS: S1 and S2 normal with no audible murmur, regular rhythm. No extra heart sounds. ABDOMEN: No hepatosplenomegaly, active bowel sounds, no guarding or rigidity. SPINE: No scoliosis or deformity SKIN: No rashes CENTRAL NERVOUS SYSTEM: No focal deficits, tone is normal in all 4 extremities. EXTREMITIES: There is significant unilateral leg swelling, right greater than left. No clubbing or cyanosis. Peripheral pulses are intact. - Labs CBC & Chem 7: 12/18/23 05:28 12/18/23 05:28 Labs: Abnormal Lab Results - Last 24 Hours (Table) 12/18/23 12/18/23 12/18/23 Range/Units 05:28 05:28 05:28 RDW 15.6 H (11.5-15.5) % Plt Count 139 L (150-450) k/uL Sodium 135 L (137-145) mmol/L Carbon Dioxide 32 H (22-30) mmol/L BUN 25 H (9-20) mg/dL Glucose 202 H (74-99) mg/dL Hemoglobin A1c 11.1 H (<=6.0) % Microbiology - Last 24 Hours (Table) 12/16/23 14:38 Blood Culture - Preliminary Blood Assessment and Plan Assessment: Suspect acute COPD exacerbation, chest x-ray reveals no acute cardiopulmonary process. Acute hypoxemic respiratory failure, currently on 2 L nasal cannula Sinus tachycardia Lower extremity edema History of diabetes mellitus History of hyperlipidemia History of hypertension History of hemorrhagic stroke Plan: The patient was seen and evaluated Doppler of the lower extremities, echocardiogram reviewed Chest x-ray, labs and medications reviewed Improved and on 2 L nasal cannula Continue bronchodilators, steroids Titrate down the FiO2 as tolerated Plan is to return to [facility] post discharge I have personally seen and examined the patient, performed the documentation and the assessment and plan as written. Number of minutes spent on the visit: 10.
[2023-12-18 20:20] LABS: HCT 41.1 % (39.0-53.0); HGB 13.2 gm/dL (13.0-17.5); Hypochromasia Slight; MCH 31.2 pg (25.0-35.0); MCV 97.3 fL (80.0-100.0); Mean Platelet Volume 8.9; Platelet Count 136 k/uL (150-450); RBC 4.22 m/uL (4.30-5.90); RDW 15.4 % (11.5-15.5); WBC 10.9 k/uL (3.8-10.6)
[2023-12-19 04:08] LABS: Basophils % (A) 0 %; Eosinophils % (A) 0 %; HCT 38.7 % (39.0-53.0); HGB 12.6 gm/dL (13.0-17.5); Hypochromasia Slight; Lymphocytes # (A) 1.2 k/uL (1.0-4.8); Lymphocytes % (A) 12 %; MCH 31.4 pg (25.0-35.0); MCHC 32.5 g/dL (31.0-37.0); MCV 96.6 fL (80.0-100.0); Monocytes # (A) 0.5 k/uL (0-1.0); Monocytes % (A) 5 %; Neutrophils # (A) 8.5 k/uL (1.3-7.7); Neutrophils % (A) 82 %; Platelet Count 121 k/uL (150-450); RBC 4.01 m/uL (4.30-5.90); RDW 15.4 % (11.5-15.5); WBC 10.3 k/uL (3.8-10.6)
[2023-12-19 04:31] LABS: African American GFR (CKD) >90 (>60 ml/min/1.73 sqM); Anion Gap 4 mmol/L; Blood Urea Nitrogen 24 mg/dL (9-20); Calcium 8.7 mg/dL (8.4-10.2); Carbon Dioxide 28 mmol/L (22-30); Chloride 103 mmol/L (98-107); Glucose 317 mg/dL (74-99); Non-African American GFR(CKD) >90 (>60 ml/min/1.73 sqM); Potassium 4.1 mmol/L (3.5-5.1); Sodium 135 mmol/L (137-145)
[2023-12-19] MEDS: INSULIN ASPART (NovoLOG) 100 UNIT/ML VIAL SQ SCH (12:09)
--- NOTE | 2023-12-19 16:44 | P.PN ---
Subjective Progress Note Date: 12/19/23 Principal diagnosis: Acute exacerbation of COPD, possible acute pulmonary embolism involving left lower lobe subsegmental pulmonary artery Patient is a 73-year-old male with a documented past medical history significant for GERD, hypertension, hyperlipidemia, diabetes, stroke, COPD. Patient is currently not answering any of my questions. Patient may have history of dementia per ER documentation, I am unsure of his baseline mentation. Family not currently present, and HPI supplemented by ER documentation. On arrival to the emergency department, the ER provider reportedly noted the patient to be in respiratory distress. He was placed on BiPAP with current settings of 14/6 and FiO2 of 40%. On my evaluation, patient remains in the emergency department. He is lying in bed. Remains on BiPAP. Generating tidal volumes of 250 to 300 mL. Respiratory rate is 18. SpO2 99%. Patient is alert and follows simple commands. He shakes his head yes and no to direct questioning, however, does not speak. He denies being short of breath. Denies any pain. There are some minimal wheezing on auscultation. Chest x-ray was a limited exam as the patient is rotated. Possible right lower lung atelectasis versus infectious process. Cardiomegaly. CBC: WBC count 11.5, hemoglobin 15.3, hematocrit 47.2, platelets 151. CMP: Sodium 135, potassium 4.6, chloride 105, serum bicarb 27, BUN 11, creatinine 0.62, glucose 177. Lactic 2.4 and currently 2. LFTs unremarkable. Troponins not elevated. EKG: sinus tachycardia, rate 123 bpm, no obvious acute ischemic changes. Currently afebrile. Started empirically on azithromycin and Rocephin in the emergency department. Remains tachycardic. Continues on BiPAP. The patient is seen today December 18, 2023 in follow-up on the selective care unit. He is currently resting in bed. Awake and alert in no acute distress. Maintaining O2 saturations in the 90s on 2 L/min per nasal cannula. Doppler of the lower extremities were negative for DVT bilaterally. Follow-up chest x-ray revealed chronic changes without acute pulmonary disease. Echocardiogram revealed impaired left ventricular systolic function with ejection fraction 40 [address] 45%. [address] scan of the brain revealed no acute intracranial process. Blood cultures revealed no growth to date. White count 8.1. Hemoglobin 13.6. Platelets 139. Sodium 135. Potassium 4.4. Bicarb 32. BUN 25. Creatinine 0.77. Glucose 272. Stool for occult blood positive. He is continued on bronchodilators and steroids. Patient was seen today on 12/19/2023, remains on the cardiac floor, does not seem to be in any distress, asymptomatic on 2 L nasal cannula, on bronchodilators is also on anticoagulation therapy for questionable pulmonary embolism. Clinically I am not quite convinced that the patient has pulmonary embolism hence I would recommend repeat CT angiogram of the chest in the next couple of weeks postdischarge. In the meantime continue anticoagulation therapy as ordered by the admitting physician Objective - Vital Signs Vital signs: Vital Signs Temp 97.6 F 12/19/23 15:58 Pulse 80 12/19/23 16:37 Resp 20 12/19/23 15:58 BP 114/75 12/19/23 15:58 Pulse Ox 96 12/19/23 15:58 FiO2 40 12/17/23 07:12 Intake & Output 12/18/23 12/19/23 12/19/23 18:59 06:59 18:59 Intake Total 520 658.834 439.174 Output Total 900 200 300 Balance -380 458.834 139.174 Weight 85.5 kg Intake: IV 20 Invasive Line 3 20 Intake, IV Titration 158.834 79.174 Amount Heparin Sod,Pork in 0.45% 158.834 79.174 NaCl 25,000 unit In 0.45 % NaCl 1 250ml.bag @ 11. 83 UNITS/KG/HR 9.996 mls/ hr IV .Q24H [facility] Rx#: [id number] Oral 520 480 360 Output: Urine 900 200 300 Other: Voiding Method External Catheter External Catheter External Catheter # Bowel Movements 1 - Exam GENERAL EXAM: 73-year-old white male in no distress on 2 L nasal cannula, nonverbal. HEAD: Normocephalic and atraumatic EYES: Normal reaction of pupils, equal size. NOSE: Clear with pink turbinates. THROAT: No erythema or exudates. NECK: No masses, no JVD. CHEST: No chest wall deformity. LUNGS: Diminished breath sound bilaterally no crackles rhonchi or wheezes se. CVS: S1 and S2 normal with no audible murmur, regular rhythm. No extra heart sounds. ABDOMEN: No hepatosplenomegaly, active bowel sounds, no guarding or rigidity. SKIN: No rashes CENTRAL NERVOUS SYSTEM: No focal deficits, tone is normal in all 4 extremities. EXTREMITIES: There is significant unilateral leg swelling, right greater than left. No clubbing or cyanosis. Peripheral pulses are intact. - Labs CBC & Chem 7: 12/19/23 03:36 12/19/23 03:36 Labs: Abnormal Lab Results - Last 24 Hours (Table) 12/18/23 12/18/23 12/19/23 Range/Units 19:41 19:41 03:36 WBC 10.9 H (3.8-10.6) k/uL RBC 4.22 L 4.01 L (4.30-5.90) m/uL Hgb 12.6 L (13.0-17.5) gm/dL Hct 38.7 L (39.0-53.0) % Plt Count 136 L 121 L (150-450) k/uL Neutrophils # 8.5 H (1.3-7.7) k/uL APTT 39.9 H (22.0-30.0) sec Sodium (137-145) mmol/L BUN (9-20) mg/dL Glucose (74-99) mg/dL 12/19/23 12/19/23 12/19/23 Range/Units 03:36 03:36 10:24 WBC (3.8-10.6) k/uL RBC (4.30-5.90) m/uL Hgb (13.0-17.5) gm/dL Hct (39.0-53.0) % Plt Count (150-450) k/uL Neutrophils # (1.3-7.7) k/uL APTT 91.7 H 80.8 H (22.0-30.0) sec Sodium 135 L (137-145) mmol/L BUN 24 H (9-20) mg/dL Glucose 317 H (74-99) mg/dL Microbiology - Last 24 Hours (Table) 12/16/23 14:38 Blood Culture - Preliminary Blood 12/17/23 10:26 Blood Culture - Preliminary Blood Assessment and Plan Assessment: Impression: acute COPD exacerbation, chest x-ray reveals no acute cardiopulmonary process. Questionable acute subsegmental pulmonary embolism as noted by radiology, although clinically doubtful patient had negative DVT and he is mostly bedbound. He is definitely high risk for DVT and pulmonary embolism Acute hypoxemic respiratory failure, currently on 2 L nasal cannula Sinus tachycardia Lower extremity edema History of diabetes mellitus History of hyperlipidemia History of hypertension History of hemorrhagic stroke Recommendation: Continue present supportive care measures Continue bronchodilators Continue to titrate oxygen accordingly Consider transitioning heparin to Eliquis Repeat CT of the chest in the next few weeks and if negative no need for further anticoagulation therapy Will continue to follow Time with Patient: Less than 30
[2023-12-20 07:13] LABS: Basophils % (A) 0 %; Eosinophils % (A) 0 %; HCT 37.3 % (39.0-53.0); HGB 12.1 gm/dL (13.0-17.5); Hypochromasia Slight; Lymphocytes % (A) 10 %; MCHC 32.3 g/dL (31.0-37.0); MCV 95.8 fL (80.0-100.0); Mean Platelet Volume 8.3; Monocytes # (A) 0.5 k/uL (0-1.0); Monocytes % (A) 5 %; Neutrophils # (A) 8.6 k/uL (1.3-7.7); Neutrophils % (A) 85 %; Platelet Count 145 k/uL (150-450); RBC 3.89 m/uL (4.30-5.90); RDW 15.6 % (11.5-15.5); WBC 10.2 k/uL (3.8-10.6)
[2023-12-20 07:27] LABS: African American GFR (CKD) >90 (>60 ml/min/1.73 sqM); Anion Gap 3 mmol/L; Blood Urea Nitrogen 26 mg/dL (9-20); Calcium 8.7 mg/dL (8.4-10.2); Carbon Dioxide 34 mmol/L (22-30); Chloride 100 mmol/L (98-107); Glucose 252 mg/dL (74-99); Non-African American GFR(CKD) >90 (>60 ml/min/1.73 sqM); Potassium 4.5 mmol/L (3.5-5.1); Sodium 137 mmol/L (137-145)
--- NOTE | 2023-12-20 10:18 | P.PN ---
Subjective Progress Note Date: 12/18/23 Patient is an 72-year-old male with known history of CHF, COPD, diabetes type 2 insulin-dependent, history of CVA/TIA with right-sided weakness, GERD, hypertension, hyperlipidemia, memory impairment, osteoarthritis and prior history of smoking was brought to ER due to respiratory distress. Patient was placed on BiPAP in the ER. Patient has been having worsening shortness of breath and low oxygen level. Patient is able to say yes or no questions but unable to provide good history. Laboratory data showed WBC 11.4 hemoglobin 15.3 and platelets 151 Sodium 134 potassium 4.6 chloride 105 bicarb is 27 BUN 11 creatinine 0.16 blood sugar 177 and lactic acid 2.4 on admission liver enzymes not elevated. Troponin x 3 negative. Procalcitonin level is 0.23, pro BNP 188. Patient 1 episode of coffee-ground emesis this morning. Hemoglobin is fairly stable from last night. EKG showed sinus tachycardia with heart rate 123 Chest x-ray showed limited examination due to patient rotation with possible right lower lobe airspace opacities. May represent pneumonia versus atelectasis. Cardiomegaly. Right lower extremity duplex was done due to more swelling compared to left. Negative for DVT in the right lower extremity. Repeat chest x-ray this morning showed chronic changes without evidence for acute pulmonary disease. Patient was given a dose of ceftriaxone and azithromycin in the ER as well as DuoNebs.. He was also given a dose of IV Lasix in the ER. 12/18/2023 Patient is lying in the bed. Awake alert and oriented x 3. Requiring 2 L oxygen via nasal cannula. No further episodes of emesis. Patient is tolerating oral diet. 2D echocardiogram showed ejection fraction 5 to 40% with intracardia c valves not well-visualized. CTA chest showed acute PE involving left lower lobe subsegmental pulmonary artery. No evidence of heart strain. Patient was started on heparin drip. Hemoglobin is fairly stable. Other laboratory WBC 10.9 hemoglobin 13.2 and platelets 136 Cardiology and pulmonary is on board. Current medications reviewed. Objective - Vital Signs Vital signs: Vital Signs Temp 98.1 F 12/18/23 09:05 Pulse 104 H 12/18/23 12:16 Resp 17 12/18/23 11:40 BP 102/65 12/18/23 11:40 Pulse Ox 97 12/18/23 11:40 FiO2 40 12/17/23 07:12 Intake & Output 12/17/23 12/18/23 12/18/23 18:59 06:59 18:59 Intake Total 368 240 120 Output Total 1350 200 550 Balance -982 40 -430 Weight 86.818 kg 84.5 kg Intake: Oral 368 240 120 Output: Urine 1350 200 550 Other: Voiding Method External Catheter External Catheter External Catheter # Bowel Movements 1 - Exam PHYSICAL EXAMINATION: Patient is lying in the bed comfortably, no acute distress, awake alert and oriented.. HEENT: Normocephalic. Neck is supple. Pupils reactive. Nostrils clear. Oral cavity is moist. Neck reveals no JVD, carotid bruits, or thyromegaly. CHEST EXAMINATION: Trachea is central. Symmetrical expansion. Bilateral wheezing. CARDIAC: Normal S1, S2 with no gallops. No murmurs, tachycardia. ABDOMEN: Soft. Bowel sounds normal. No organomegaly. No abdominal bruits. Extremities: reveal no edema. No clubbing or cyanosis Neurologically awake, alert, oriented x 2-3. Right-sided residual weakness. Skin: No rash or skin lesions. Psychiatric: Coperative. Nonsuicidal Musculoskeletal: No joint swelling or deformity. - Labs CBC & Chem 7: 12/20/23 06:21 12/20/23 06:21 Labs: Abnormal Lab Results - Last 24 Hours (Table) 12/18/23 12/18/23 12/18/23 Range/Units 05:28 05:28 05:28 RDW 15.6 H (11.5-15.5) % Plt Count 139 L (150-450) k/uL Sodium 135 L (137-145) mmol/L Carbon Dioxide 32 H (22-30) mmol/L BUN 25 H (9-20) mg/dL Glucose 202 H (74-99) mg/dL Hemoglobin A1c 11.1 H (<=6.0) % Microbiology - Last 24 Hours (Table) 12/16/23 14:38 Blood Culture - Preliminary Blood Assessment and Plan Assessment: Acute hypoxic respiratory failure requiring BiPAP on admission Acute COPD exacerbation Acute PE involving left lower lobe subsegmental pulmonary artery. No evidence of heart strain. Coffee-ground emesis x 1 on admission. No further episodes noted. Possible pneumonia less likely Sinus tachycardia Right lower extremity swelling more than left. Duplex scan is negative for DVT. Chronic CHF with mildly reduced ejection fraction Hypertension Hyperlipidemia Diabetes type 2 insulin-dependent History of CVA/TIA with right-sided weakness Cognitive impairment/dementia Osteoarthritis Prior history of smoking DVT prophylaxis with heparin subcu GI prophylaxis with PPI Plan: Patient will be continued on oxygen supplementation. Off BiPAP currently. On 2 L oxygen via nasal cannula. Patient was given a dose of IV Lasix in the ER. Continue with DuoNebs, Pulmicort/Perforomist and IV Solu-Medrol 40 mg IV every 6 hourly. Continue with azithromycin. Procalcitonin level was done. Patient was started on heparin drip due to acute PE noted on CTA chest. Continue with PPI and monitor H&H Symptomatic management for nausea and vomiting. GI and DVT prophylaxis. Right lower extremity he is negative for DVT. 2D echocardiogram showed EF 40 to 45%. TSH within normal limits. Cardiology and pulmonary is on board. Time with Patient: Greater than 30
--- NOTE | 2023-12-20 10:56 | P.PN ---
Subjective Progress Note Date: 12/19/23 Patient is an 72-year-old male with known history of CHF, COPD, diabetes type 2 insulin-dependent, history of CVA/TIA with right-sided weakness, GERD, hypertension, hyperlipidemia, memory impairment, osteoarthritis and prior history of smoking was brought to ER due to respiratory distress. Patient was placed on BiPAP in the ER. Patient has been having worsening shortness of breath and low oxygen level. Patient is able to say yes or no questions but unable to provide good history. Laboratory data showed WBC 11.4 hemoglobin 15.3 and platelets 151 Sodium 134 potassium 4.6 chloride 105 bicarb is 27 BUN 11 creatinine 0.16 blood sugar 177 and lactic acid 2.4 on admission liver enzymes not elevated. Troponin x 3 negative. Procalcitonin level is 0.23, pro BNP 188. Patient 1 episode of coffee-ground emesis this morning. Hemoglobin is fairly stable from last night. EKG showed sinus tachycardia with heart rate 123 Chest x-ray showed limited examination due to patient rotation with possible right lower lobe airspace opacities. May represent pneumonia versus atelectasis. Cardiomegaly. Right lower extremity duplex was done due to more swelling compared to left. Negative for DVT in the right lower extremity. Repeat chest x-ray this morning showed chronic changes without evidence for acute pulmonary disease. Patient was given a dose of ceftriaxone and azithromycin in the ER as well as DuoNebs.. He was also given a dose of IV Lasix in the ER. 12/18/2023 Patient is lying in the bed. Awake alert and oriented x 3. Requiring 2 L oxygen via nasal cannula. No further episodes of emesis. Patient is tolerating oral diet. 2D echocardiogram showed ejection fraction 5 to 40% with intracardia c valves not well-visualized. CTA chest showed acute PE involving left lower lobe subsegmental pulmonary artery. No evidence of heart strain. Patient was started on heparin drip. Hemoglobin is fairly stable. Other laboratory WBC 10.9 hemoglobin 13.2 and platelets 136 Cardiology and pulmonary is on board. 12/19/2023 Patient is resting in the bed. Awake alert and oriented. Currently requiring 2 L oxygen via nasal cannula. No further episodes of emesis. Tolerating oral diet. Patient is being continued on heparin drip. Hemoglobin is 12.6 today. Patient did not have any bowel meant today. No complaints of chest pain or shortness of breath. Other laboratory data showed sodium 135 potassium 4.1 chloride 103 bicarb is 28 BUN 24 and creatinine 0.74 and blood sugar is 317. Patient was al so started on preprandial insulin. Current medications reviewed. Objective - Vital Signs Vital signs: Vital Signs Temp 97.6 F 12/19/23 15:58 Pulse 80 12/19/23 16:37 Resp 20 12/19/23 15:58 BP 114/75 12/19/23 15:58 Pulse Ox 96 12/19/23 15:58 FiO2 40 12/17/23 07:12 Intake & Output 12/19/23 12/19/23 12/20/23 06:59 18:59 06:59 Intake Total 658.834 905.534 Output Total 200 300 Balance 458.834 605.534 Weight 85.5 kg Intake: IV 20 106.36 Heparin Sod,Pork in 0.45% 106.36 NaCl 25,000 unit In 0.45 % NaCl 1 250ml.bag @ 11. 83 UNITS/KG/HR 9.996 mls/ hr IV .Q24H JUAN Rx#: [id number] Invasive Line 3 20 Intake, IV Titration 158.834 79.174 Amount Heparin Sod,Pork in 0.45% 158.834 79.174 NaCl 25,000 unit In 0.45 % NaCl 1 250ml.bag @ 11. 83 UNITS/KG/HR 9.996 mls/ hr IV .Q24H JUAN Rx#: [id number] Oral 480 720 Output: Urine 200 300 Other: Voiding Method External Catheter External Catheter - Exam PHYSICAL EXAMINATION: Patient is lying in the bed comfortably, no acute distress, awake alert and oriented.. HEENT: Normocephalic. Neck is supple. Pupils reactive. Nostrils clear. Oral cavity is moist. Neck reveals no JVD, carotid bruits, or thyromegaly. CHEST EXAMINATION: Trachea is central. Symmetrical expansion. Bilateral wheezing. CARDIAC: Normal S1, S2 with no gallops. No murmurs, tachycardia. ABDOMEN: Soft. Bowel sounds normal. No organomegaly. No abdominal bruits. Extremities: reveal no edema. No clubbing or cyanosis Neurologically awake, alert, oriented x 2-3. Right-sided residual weakness. Skin: No rash or skin lesions. Psychiatric: Coperative. Nonsuicidal Musculoskeletal: No joint swelling or deformity. - Labs CBC & Chem 7: 12/20/23 06:21 12/20/23 06:21 Labs: Abnormal Lab Results - Last 24 Hours (Table) 12/18/23 12/18/23 12/19/23 Range/Units 19:41 19:41 03:36 WBC 10.9 H (3.8-10.6) k/uL RBC 4.22 L 4.01 L (4.30-5.90) m/uL Hgb 12.6 L (13.0-17.5) gm/dL Hct 38.7 L (39.0-53.0) % Plt Count 136 L 121 L (150-450) k/uL Neutrophils # 8.5 H (1.3-7.7) k/uL APTT 39.9 H (22.0-30.0) sec Sodium (137-145) mmol/L BUN (9-20) mg/dL Glucose (74-99) mg/dL 12/19/23 12/19/23 12/19/23 Range/Units 03:36 03:36 10:24 WBC (3.8-10.6) k/uL RBC (4.30-5.90) m/uL Hgb (13.0-17.5) gm/dL Hct (39.0-53.0) % Plt Count (150-450) k/uL Neutrophils # (1.3-7.7) k/uL APTT 91.7 H 80.8 H (22.0-30.0) sec Sodium 135 L (137-145) mmol/L BUN 24 H (9-20) mg/dL Glucose 317 H (74-99) mg/dL 12/19/23 Range/Units 17:54 WBC (3.8-10.6) k/uL RBC (4.30-5.90) m/uL Hgb (13.0-17.5) gm/dL Hct (39.0-53.0) % Plt Count (150-450) k/uL Neutrophils # (1.3-7.7) k/uL APTT 72.5 H (22.0-30.0) sec Sodium (137-145) mmol/L BUN (9-20) mg/dL Glucose (74-99) mg/dL Microbiology - Last 24 Hours (Table) 12/17/23 10:26 Blood Culture - Preliminary Blood 12/16/23 14:38 Blood Culture - Preliminary Blood Assessment and Plan Assessment: Acute hypoxic respiratory failure requiring BiPAP on admission Acute COPD exacerbation Acute PE involving left lower lobe subsegmental pulmonary artery. No evidence of heart strain. Coffee-ground emesis x 1 on admission. No further episodes noted. Possible pneumonia less likely Sinus tachycardia Right lower extremity swelling more than left. Duplex scan is negative for DVT. Chronic CHF with mildly reduced ejection fraction Hypertension Hyperlipidemia Hyperglycemia with uncontrolled diabetes type 2 insulin-dependent. A1c 11 History of CVA/TIA with right-sided weakness Cognitive impairment/dementia Osteoarthritis Prior history of smoking DVT prophylaxis with heparin subcu GI prophylaxis with PPI Plan: Patient will be continued on oxygen supplementation. Off BiPAP currently. On 2 L oxygen via nasal cannula. Patient was given a dose of IV Lasix in the ER. Continue with DuoNebs, Pulmicort/Perforomist and IV Solu-Medrol 40 mg IV every 6 hourly. Continue with azithromycin. Procalcitonin level was done. Patient was started on heparin drip due to acute PE noted on CTA chest. Patient will need repeat CTA as an outpatient in the next couple of weeks. Outpatient follow-up with pulmonary. Will be transitioned to Eliquis once hemoglobin is stable. Continue with PPI and monitor H&H Symptomatic management for nausea and vomiting. GI and DVT prophylaxis. Right lower extremity he is negative for DVT. 2D echocardiogram showed EF 40 to 45%. TSH within normal limits. Cardiology and pulmonary is on board. Time with Patient: Greater than 30
[2023-12-20] MEDS: APIXABAN 5 MG TAB PO SCH (12:20)
--- NOTE | 2023-12-20 14:42 | P.PN ---
Subjective Progress Note Date: 12/20/23 Principal diagnosis: Acute exacerbation of COPD, possible acute pulmonary embolism involving left lower lobe subsegmental pulmonary artery Patient is a 73-year-old male with a documented past medical history significant for GERD, hypertension, hyperlipidemia, diabetes, stroke, COPD. Patient is currently not answering any of my questions. Patient may have history of dementia per ER documentation, I am unsure of his baseline mentation. Family not currently present, and HPI supplemented by ER documentation. On arrival to the emergency department, the ER provider reportedly noted the patient to be in respiratory distress. He was placed on BiPAP with current settings of 14/6 and FiO2 of 40%. On my evaluation, patient remains in the emergency department. He is lying in bed. Remains on BiPAP. Generating tidal volumes of 250 to 300 mL. Respiratory rate is 18. SpO2 99%. Patient is alert and follows simple commands. He shakes his head yes and no to direct questioning, however, does not speak. He denies being short of breath. Denies any pain. There are some minimal wheezing on auscultation. Chest x-ray was a limited exam as the patient is rotated. Possible right lower lung atelectasis versus infectious process. Cardiomegaly. CBC: WBC count 11.5, hemoglobin 15.3, hematocrit 47.2, platelets 151. CMP: Sodium 135, potassium 4.6, chloride 105, serum bicarb 27, BUN 11, creatinine 0.62, glucose 177. Lactic 2.4 and currently 2. LFTs unremarkable. Troponins not elevated. EKG: sinus tachycardia, rate 123 bpm, no obvious acute ischemic changes. Currently afebrile. Started empirically on azithromycin and Rocephin in the emergency department. Remains tachycardic. Continues on BiPAP. The patient is seen today December 18, 2023 in follow-up on the selective care unit. He is currently resting in bed. Awake and alert in no acute distress. Maintaining O2 saturations in the 90s on 2 L/min per nasal cannula. Doppler of the lower extremities were negative for DVT bilaterally. Follow-up chest x-ray revealed chronic changes without acute pulmonary disease. Echocardiogram revealed impaired left ventricular systolic function with ejection fraction 40 [address]%. CT scan of the brain revealed no acute intracranial process. Blood cultures revealed no growth to date. White count 8.1. Hemoglobin 13.6. Platelets 139. Sodium 135. Potassium 4.4. Bicarb 32. BUN 25. Creatinine 0.77. Glucose 272. Stool for occult blood positive. He is continued on bronchodilators and steroids. Patient was seen today on 12/19/2023, remains on the cardiac floor, does not seem to be in any distress, asymptomatic on 2 L nasal cannula, on bronchodilators is also on anticoagulation therapy for questionable pulmonary embolism. Clinically I am not quite convinced that the patient has pulmonary embolism hence I would recommend repeat CT angiogram of the chest in the next couple of weeks postdischarge. In the meantime continue anticoagulation therapy as ordered by the admitting physician Evaluated today on 12/20/2023, patient is doing well, on 2 L nasal cannula O2 sats at 94%, patient is nonverbal, not in any distress, patient is now on anticoagulation therapy for presumptive pulmonary embolism although clinically it is not very convincing. Patient is being considered for discharge to rehab, and that is in progress.WBC count is 10.2 hemoglobin 12.1 electrolytes are normal renal profile is normal Objective - Vital Signs Vital signs: Vital Signs Temp 98.3 F 12/20/23 11:40 Pulse 93 12/20/23 11:40 Resp 20 12/20/23 11:40 BP 128/68 12/20/23 11:40 Pulse Ox 94 L 12/20/23 11:40 FiO2 40 12/17/23 07:12 Intake & Output 12/19/23 12/20/23 12/20/23 18:59 06:59 18:59 Intake Total 905.534 240 720 Output Total 300 500 200 Balance 605.534 -260 520 Weight 87.5 kg Intake: IV 106.36 Heparin Sod,Pork in 0.45% 106.36 NaCl 25,000 unit In 0.45 % NaCl 1 250ml.bag @ 11. 83 UNITS/KG/HR 9.996 mls/ hr IV .Q24H [facility] Rx#: [id number] Intake, IV Titration 79.174 Amount Heparin Sod,Pork in 0.45% 79.174 NaCl 25,000 unit In 0.45 % NaCl 1 250ml.bag @ 11. 83 UNITS/KG/HR 9.996 mls/ hr IV .Q24H JUAN Rx#: [id number] Oral 720 240 720 Output: Urine 300 500 200 Other: Voiding Method External Catheter External Catheter External Catheter - Exam GENERAL EXAM: 73-year-old white male in no distress on 2 L nasal cannula, nonverbal. HEAD: Normocephalic and atraumatic EYES: Normal reaction of pupils, equal size. NOSE: Clear with pink turbinates. THROAT: No erythema or exudates. NECK: No masses, no JVD. CHEST: No chest wall deformity. LUNGS: Diminished breath sound bilaterally no crackles rhonchi or wheezes se. CVS: S1 and S2 normal with no audible murmur, regular rhythm. No extra heart so unds. ABDOMEN: No hepatosplenomegaly, active bowel sounds, no guarding or rigidity. SKIN: No rashes CENTRAL NERVOUS SYSTEM: No focal deficits, tone is normal in all 4 extremities. EXTREMITIES: There is significant unilateral leg swelling, right greater than left. No clubbing or cyanosis. Peripheral pulses are intact. - Labs CBC & Chem 7: 12/20/23 06:21 12/20/23 06:21 Labs: Abnormal Lab Results - Last 24 Hours (Table) 12/19/23 12/20/23 12/20/23 Range/Units 17:54 06:21 06:21 RBC 3.89 L (4.30-5.90) m/uL Hgb 12.1 L (13.0-17.5) gm/dL Hct 37.3 L (39.0-53.0) % RDW 15.6 H (11.5-15.5) % Plt Count 145 L (150-450) k/uL Neutrophils # 8.6 H (1.3-7.7) k/uL APTT 72.5 H 69.0 H (22.0-30.0) sec Carbon Dioxide (22-30) mmol/L BUN (9-20) mg/dL Glucose (74-99) mg/dL 12/20/23 Range/Units 06:21 RBC (4.30-5.90) m/uL Hgb (13.0-17.5) gm/dL Hct (39.0-53.0) % RDW (11.5-15.5) % Plt Count (150-450) k/uL Neutrophils # (1.3-7.7) k/uL APTT (22.0-30.0) sec Carbon Dioxide 34 H (22-30) mmol/L BUN 26 H (9-20) mg/dL Glucose 252 H (74-99) mg/dL Microbiology - Last 24 Hours (Table) 12/16/23 14:38 Blood Culture - Preliminary Blood 12/17/23 10:26 Blood Culture - Preliminary Blood Assessment and Plan Assessment: Impression: acute COPD exacerbation, chest x-ray reveals no acute cardiopulmonary process. Questionable acute subsegmental pulmonary embolism as noted by radiology, although clinically doubtful patient had negative DVT and he is mostly bedbound. He is definitely high risk for DVT and pulmonary embolism Acute hypoxemic respiratory failure, currently on 2 L nasal cannula Sinus tachycardia Lower extremity edema History of diabetes mellitus History of hyperlipidemia History of hypertension History of hemorrhagic stroke Recommendation: Continue present supportive care measures Continue bronchodilators Continue to titrate oxygen accordingly Continue Eliquis Repeat CT of the chest in the next few weeks and if negative no need for further anticoagulation therapy Will continue to follow Time with Patient: Less than 30
[2023-12-20 15:02] LABS: Glucose,Whole Blood 343 mg/dL (70-110)
[2023-12-20 15:03] LABS: Glucose,Whole Blood 444 mg/dL (70-110)
[2023-12-20 15:03] LABS: Glucose,Whole Blood 281 mg/dL (70-110)
[2023-12-20 15:03] LABS: Glucose,Whole Blood 355 mg/dL (70-110)
[2023-12-20 15:03] LABS: Glucose,Whole Blood 187 mg/dL (70-110)
[2023-12-20 15:03] LABS: Glucose,Whole Blood 308 mg/dL (70-110)
[2023-12-20 15:03] LABS: Glucose,Whole Blood 301 mg/dL (70-110)
[2023-12-20 15:03] LABS: Glucose,Whole Blood 385 mg/dL (70-110)
[2023-12-20 15:03] LABS: Glucose,Whole Blood 154 mg/dL (70-110)
[2023-12-20 15:03] LABS: Glucose,Whole Blood 228 mg/dL (70-110)
[2023-12-20 15:03] LABS: Glucose,Whole Blood 338 mg/dL (70-110)
[2023-12-20 15:04] LABS: Glucose,Whole Blood 194 mg/dL (70-110)
[2023-12-20 15:04] LABS: Glucose,Whole Blood 201 mg/dL (70-110)
[2023-12-20 15:04] LABS: Glucose,Whole Blood 201 mg/dL (70-110)
[2023-12-20 15:04] LABS: Glucose,Whole Blood 262 mg/dL (70-110)
[2023-12-20 16:13] LABS: Glucose,Whole Blood 300 mg/dL (70-110)
[2023-12-20 20:13] LABS: Glucose,Whole Blood 403 mg/dL (70-110)
[2023-12-20] MEDS: INSULIN ASPART (NovoLOG) 100 UNIT/ML VIAL SQ ONE (20:46)
[2023-12-20] MEDS ORDERED: SENNOSIDES 8.6 MG TAB PO PRN (22:03)
--- NOTE | 2023-12-20 22:09 | P.PN ---
Subjective Progress Note Date: 12/20/23 Patient is an 72-year-old male with known history of CHF, COPD, diabetes type 2 insulin-dependent, history of CVA/TIA with right-sided weakness, GERD, hypertension, hyperlipidemia, memory impairment, osteoarthritis and prior history of smoking was brought to ER due to respiratory distress. Patient was placed on BiPAP in the ER. Patient has been having worsening shortness of breath and low oxygen level. Patient is able to say yes or no questions but unable to provide good history. Laboratory data showed WBC 11.4 hemoglobin 15.3 and platelets 151 Sodium 134 potassium 4.6 chloride 105 bicarb is 27 BUN 11 creatinine 0.16 blood sugar 177 and lactic acid 2.4 on admission liver enzymes not elevated. Troponin x 3 negative. Procalcitonin level is 0.23, pro BNP 188. Patient 1 episode of coffee-ground emesis this morning. Hemoglobin is fairly stable from last night. EKG showed sinus tachycardia with heart rate 123 Chest x-ray showed limited examination due to patient rotation with possible right lower lobe airspace opacities. May represent pneumonia versus atelectasis. Cardiomegaly. Right lower extremity duplex was done due to more swelling compared to left. Negative for DVT in the right lower extremity. Repeat chest x-ray this morning showed chronic changes without evidence for acute pulmonary disease. Patient was given a dose of ceftriaxone and azithromycin in the ER as well as DuoNebs.. He was also given a dose of IV Lasix in the ER. 12/18/2023 Patient is lying in the bed. Awake alert and oriented x 3. Requiring 2 L oxygen via nasal cannula. No further episodes of emesis. Patient is tolerating oral diet. 2D echocardiogram showed ejection fraction 5 to 40% with intracardia c valves not well-visualized. CTA chest showed acute PE involving left lower lobe subsegmental pulmonary artery. No evidence of heart strain. Patient was started on heparin drip. Hemoglobin is fairly stable. Other laboratory WBC 10.9 hemoglobin 13.2 and platelets 136 Cardiology and pulmonary is on board. 12/19/2023 Patient is resting in the bed. Awake alert and oriented. Currently requiring 2 L oxygen via nasal cannula. No further episodes of emesis. Tolerating oral diet. Patient is being continued on heparin drip. Hemoglobin is 12.6 today. Patient did not have any bowel meant today. No complaints of chest pain or shortness of breath. Other laboratory data showed sodium 135 potassium 4.1 chloride 103 bicarb is 28 BUN 24 and creatinine 0.74 and blood sugar is 317. Patient was al so started on preprandial insulin. 12/20/2023 Patient is lying in the bed. Awake alert and oriented. No complaints of chest pain or shortness of breath. Requiring 2 L oxygen via nasal cannula. Patient has been afebrile. No nausea or vomiting. Patient did not have any bowel meant last few days. Otherwise heparin has been changed to Eliquis. Patient is being continued on IV Solu-Medrol, DuoNebs and Pulmicort/Perforomist". Otherwise blood sugar is elevated to 300s this morning. Continue insulin sliding scale and titrate dose as needed.. Patient remains febrile. Laboratory test showed WBC 10.2 hemoglobin 12.1 and platelets 145 sodium 137 potassium 4.5 chloride 100 bicarb is 34 BUN 26 and creatinine 0.74 and calcium 8.7. Pulmonary is on board. Current medications reviewed. Objective - Vital Signs Vital signs: Vital Signs Temp 98.2 F 12/20/23 20:00 Pulse 95 12/20/23 20:00 Resp 18 12/20/23 20:00 BP 129/74 12/20/23 20:00 Pulse Ox 95 12/20/23 20:00 FiO2 40 12/17/23 07:12 Intake & Output 12/20/23 12/20/23 12/21/23 06:59 18:59 06:59 Intake Total 240 1080 Output Total 500 500 Balance -260 580 Weight 87.5 kg Intake: Oral 240 1080 Output: Urine 500 500 Other: Voiding Method External Catheter External Catheter External Catheter - Exam PHYSICAL EXAMINATION: Patient is lying in the bed comfortably, no acute distress, awake alert and oriented.. HEENT: Normocephalic. Neck is supple. Pupils reactive. Nostrils clear. Oral cavity is moist. Neck reveals no JVD, carotid bruits, or thyromegaly. CHEST EXAMINATION: Trachea is central. Symmetrical expansion. Bilateral wheezing. CARDIAC: Normal S1, S2 with no gallops. No murmurs, tachycardia. ABDOMEN: Soft. Bowel sounds normal. No organomegaly. No abdominal bruits. Extremities: reveal no edema. No clubbing or cyanosis Neurologically awake, alert, oriented x 2-3. Right-sided residual weakness. Skin: No rash or skin lesions. Psychiatric: Coperative. Nonsuicidal Musculoskeletal: No joint swelling or deformity. - Labs CBC & Chem 7: 12/20/23 06:21 12/20/23 06:21 Labs: Abnormal Lab Results - Last 24 Hours (Table) 12/17/23 12/17/23 12/17/23 Range/Units 06:12 09:41 12:14 RBC (4.30-5.90) m/uL Hgb (13.0-17.5) gm/dL Hct (39.0-53.0) % RDW (11.5-15.5) % Plt Count (150-450) k/uL Neutrophils # (1.3-7.7) k/uL APTT (22.0-30.0) sec Carbon Dioxide (22-30) mmol/L BUN (9-20) mg/dL Glucose (74-99) mg/dL POC Glucose (mg/dL) 154 H 201 H 194 H (70-110) mg/dL 12/17/23 12/17/23 12/18/23 Range/Units 16:35 20:08 06:25 RBC (4.30-5.90) m/uL Hgb (13.0-17.5) gm/dL Hct (39.0-53.0) % RDW (11.5-15.5) % Plt Count (150-450) k/uL Neutrophils # (1.3-7.7) k/uL APTT (22.0-30.0) sec Carbon Dioxide (22-30) mmol/L BUN (9-20) mg/dL Glucose (74-99) mg/dL POC Glucose (mg/dL) 201 H 262 H 187 H (70-110) mg/dL 12/18/23 12/18/23 12/18/23 Range/Units 11:16 16:14 20:21 RBC (4.30-5.90) m/uL Hgb (13.0-17.5) gm/dL Hct (39.0-53.0) % RDW (11.5-15.5) % Plt Count (150-450) k/uL Neutrophils # (1.3-7.7) k/uL APTT (22.0-30.0) sec Carbon Dioxide (22-30) mmol/L BUN (9-20) mg/dL Glucose (74-99) mg/dL POC Glucose (mg/dL) 444 H 338 H 355 H (70-110) mg/dL 12/19/23 12/19/23 12/19/23 Range/Units 06:24 11:46 16:58 RBC (4.30-5.90) m/uL Hgb (13.0-17.5) gm/dL Hct (39.0-53.0) % RDW (11.5-15.5) % Plt Count (150-450) k/uL Neutrophils # (1.3-7.7) k/uL APTT (22.0-30.0) sec Carbon Dioxide (22-30) mmol/L BUN (9-20) mg/dL Glucose (74-99) mg/dL POC Glucose (mg/dL) 281 H 301 H 343 H (70-110) mg/dL 12/19/23 12/20/23 12/20/23 Range/Units 20:16 06:02 06:21 RBC (4.30-5.90) m/uL Hgb (13.0-17.5) gm/dL Hct (39.0-53.0) % RDW (11.5-15.5) % Plt Count (150-450) k/uL Neutrophils # (1.3-7.7) k/uL APTT 69.0 H (22.0-30.0) sec Carbon Dioxide (22-30) mmol/L BUN (9-20) mg/dL Glucose (74-99) mg/dL POC Glucose (mg/dL) 385 H 228 H (70-110) mg/dL 12/20/23 12/20/23 12/20/23 Range/Units 06:21 06:21 11:33 RBC 3.89 L (4.30-5.90) m/uL Hgb 12.1 L (13.0-17.5) gm/dL Hct 37.3 L (39.0-53.0) % RDW 15.6 H (11.5-15.5) % Plt Count 145 L (150-450) k/uL Neutrophils # 8.6 H (1.3-7.7) k/uL APTT (22.0-30.0) sec Carbon Dioxide 34 H (22-30) mmol/L BUN 26 H (9-20) mg/dL Glucose 252 H (74-99) mg/dL POC Glucose (mg/dL) 308 H (70-110) mg/dL 12/20/23 12/20/23 Range/Units 16:12 20:11 RBC (4.30-5.90) m/uL Hgb (13.0-17.5) gm/dL Hct (39.0-53.0) % RDW (11.5-15.5) % Plt Count (150-450) k/uL Neutrophils # (1.3-7.7) k/uL APTT (22.0-30.0) sec Carbon Dioxide (22-30) mmol/L BUN (9-20) mg/dL Glucose (74-99) mg/dL POC Glucose (mg/dL) 300 H 403 H (70-110) mg/dL Microbiology - Last 24 Hours (Table) 12/17/23 10:26 Blood Culture - Preliminary Blood 12/16/23 14:38 Blood Culture - Preliminary Blood Assessment and Plan Assessment: Acute hypoxic respiratory failure requiring BiPAP on admission Acute COPD exacerbation Acute PE involving left lower lobe subsegmental pulmonary artery. No evidence of heart strain. Coffee-ground emesis x 1 on admission. No further episodes noted. Possible pneumonia less likely Sinus tachycardia Right lower extremity swelling more than left. Duplex scan is negative for DVT. Chronic CHF with mildly reduced ejection fraction Hypertension Hyperlipidemia Hyperglycemia with uncontrolled diabetes type 2 insulin-dependent. A1c 11 History of CVA/TIA with right-sided weakness Cognitive impairment/dementia Osteoarthritis Prior history of smoking DVT prophylaxis with heparin subcu GI prophylaxis with PPI Plan: Patient will be continued on oxygen supplementation. Off BiPAP currently. On 2 L oxygen via nasal cannula. Patient was given a dose of IV Lasix in the ER. Continue with DuoNebs, Pulmicort/Perforomist and IV Solu-Medrol 40 mg IV every 6 hourly. Completed azithromycin. Procalcitonin level was done. Patient was started on heparin drip due to acute PE noted on CTA chest. Patient will need repeat CTA as an outpatient in the next couple of weeks whether to continue anticoagulation. Outpatient follow-up with pulmonary. Heparin drip transition to Eliquis today. Continue with PPI and monitor H&H Symptomatic management for nausea and vomiting. GI and DVT prophylaxis. Stool softeners as needed. Right lower extremity he is negative for DVT. 2D echocardiogram showed EF 40 to 45%. TSH within normal limits. Cardiology and pulmonary is on board. Time with Patient: Greater than 30
[2023-12-20 22:28] LABS: Glucose,Whole Blood 325 mg/dL (70-110)
[2023-12-21 06:24] LABS: Glucose,Whole Blood 239 mg/dL (70-110)
[2023-12-21] MEDS: INSULIN ASPART (NovoLOG) 100 UNIT/ML VIAL SQ SCH (06:40)
[2023-12-21 07:11] LABS: Basophils % (A) 0 %; Eosinophils # (A) 0.1 k/uL (0-0.7); Eosinophils % (A) 1 %; HCT 38.2 % (39.0-53.0); HGB 12.8 gm/dL (13.0-17.5); Lymphocytes # (A) 1.2 k/uL (1.0-4.8); Lymphocytes % (A) 12 %; MCH 31.8 pg (25.0-35.0); MCHC 33.6 g/dL (31.0-37.0); MCV 94.7 fL (80.0-100.0); Monocytes # (A) 0.4 k/uL (0-1.0); Monocytes % (A) 4 %; Neutrophils # (A) 8.6 k/uL (1.3-7.7); Neutrophils % (A) 83 %; Platelet Count 120 k/uL (150-450); RBC 4.04 m/uL (4.30-5.90); RDW 15.9 % (11.5-15.5); WBC 10.3 k/uL (3.8-10.6)
[2023-12-21 07:24] LABS: African American GFR (CKD) >90 (>60 ml/min/1.73 sqM); Anion Gap 0 mmol/L; Blood Urea Nitrogen 28 mg/dL (9-20); Calcium 8.8 mg/dL (8.4-10.2); Carbon Dioxide 30 mmol/L (22-30); Chloride 103 mmol/L (98-107); Glucose 234 mg/dL (74-99); Non-African American GFR(CKD) >90 (>60 ml/min/1.73 sqM); Sodium 133 mmol/L (137-145)
[2023-12-21 07:25] LABS: Potassium 5.3 mmol/L (3.5-5.1)
[2023-12-21 11:36] LABS: Glucose,Whole Blood 369 mg/dL (70-110)
[2023-12-21] MEDS: INSULIN REGULAR 100 UNIT/ML VIAL (IV) IV ONE (12:57)
[2023-12-21] MEDS: DEXTROSE 50% SYRINGE 50 ML IVP ONE (12:58)
--- NOTE | 2023-12-21 13:18 | P.PN ---
Subjective Progress Note Date: 12/21/23 Principal diagnosis: Acute exacerbation of COPD, possible acute pulmonary embolism involving left lower lobe subsegmental pulmonary artery Patient is a 73-year-old male with a documented past medical history significant for GERD, hypertension, hyperlipidemia, diabetes, stroke, COPD. Patient is currently not answering any of my questions. Patient may have history of dementia per ER documentation, I am unsure of his baseline mentation. Family not currently present, and HPI supplemented by ER documentation. On arrival to the emergency department, the ER provider reportedly noted the patient to be in respiratory distress. He was placed on BiPAP with current settings of 14/6 and FiO2 of 40%. On my evaluation, patient remains in the emergency department. He is lying in bed. Remains on BiPAP. Generating tidal volumes of 250 to 300 mL. Respiratory rate is 18. SpO2 99%. Patient is alert and follows simple commands. He shakes his head yes and no to direct questioning, however, does not speak. He denies being short of breath. Denies any pain. There are some minimal wheezing on auscultation. Chest x-ray was a limited exam as the patient is rotated. Possible right lower lung atelectasis versus infectious process. Cardiomegaly. CBC: WBC count 11.5, hemoglobin 15.3, hematocrit 47.2, platelets 151. CMP: Sodium 135, potassium 4.6, chloride 105, serum bicarb 27, BUN 11, creatinine 0.62, glucose 177. Lactic 2.4 and currently 2. LFTs unremarkable. Troponins not elevated. EKG: sinus tachycardia, rate 123 bpm, no obvious acute ischemic changes. Currently afebrile. Started empirically on azithromycin and Rocephin in the emergency department. Remains tachycardic. Continues on BiPAP. The patient is seen today December 18, 2023 in follow-up on the selective care unit. He is currently resting in bed. Awake and alert in no acute distress. Maintaining O2 saturations in the 90s on 2 L/min per nasal cannula. Doppler of the lower extremities were negative for DVT bilaterally. Follow-up chest x-ray revealed chronic changes without acute pulmonary disease. Echocardiogram revealed impaired left ventricular systolic function with ejection fraction [address] scan of the brain revealed no acute intracranial process. Blood cultures revealed no growth to date. White count 8.1. Hemoglobin 13.6. Platelets 139. Sodium 135. Potassium 4.4. Bicarb 32. BUN 25. Creatinine 0.77. Glucose 272. Stool for occult blood positive. He is continued on bronchodilators and steroids. Patient was seen today on 12/19/2023, remains on the cardiac floor, does not seem to be in any distress, asymptomatic on 2 L nasal cannula, on bronchodilators is also on anticoagulation therapy for questionable pulmonary embolism. Clinically I am not quite convinced that the patient has pulmonary embolism hence I would recommend repeat CT angiogram of the chest in the next couple of weeks postdischarge. In the meantime continue anticoagulation therapy as ordered by the admitting physician Evaluated today on 12/20/2023, patient is doing well, on 2 L nasal cannula O2 sats at 94%, patient is nonverbal, not in any distress, patient is now on anticoagulation therapy for presumptive pulmonary embolism although clinically it is not very convincing. Patient is being considered for discharge to rehab, and that is in progress.WBC count is 10.2 hemoglobin 12.1 electrolytes are normal renal profile is normal Patient was evaluated today on 12/21/2023, doing fairly well, does not seem to be in distress, on 2 L nasal cannula, Patient is supposedly awaiting placement. His labs were unremarkable including CBC and basic metabolic profile except for slightly elevated potassium of 5.3, renal profile is normal Objective - Vital Signs Vital signs: Vital Signs Temp 98.4 F 12/21/23 08:00 Pulse 80 12/21/23 12:01 Resp 18 12/21/23 08:00 BP 129/71 12/21/23 08:00 Pulse Ox 98 12/21/23 08:00 FiO2 40 12/17/23 07:12 Intake & Output 12/20/23 12/21/23 12/21/23 18:59 06:59 18:59 Intake Total 1080 540 240 Output Total 500 750 Balance 580 -210 240 Weight 93.5 kg Intake: Oral 1080 540 240 Output: Urine 500 750 Other: Voiding Method External Catheter External Catheter External Catheter - Exam GENERAL EXAM: 73-year-old white male in no distress on 2 L nasal cannula, nonverbal. HEAD: Normocephalic and atraumatic EYES: Normal reaction of pupils, equal size. NOSE: Clear with pink turbinates. THROAT: No erythema or exudates. NECK: No masses, no JVD. CHEST: No chest wall deformity. LUNGS: Diminished breath sound bilaterally no crackles rhonchi or wheezes se. CVS: S1 and S2 normal with no audible murmur, regular rhythm. No extra heart sounds. ABDOMEN: No hepatosplenomegaly, active bowel sounds, no guarding or rigidity. SKIN: No rashes CENTRAL NERVOUS SYSTEM: No focal deficits, tone is normal in all 4 extremities. EXTREMITIES: There is significant unilateral leg swelling, right greater than left. No clubbing or cyanosis. Peripheral pulses are intact. - Labs CBC & Chem 7: 12/21/23 06:41 12/21/23 06:41 Labs: Abnormal Lab Results - Last 24 Hours (Table) 12/17/23 12/17/23 12/17/23 Range/Units 06:12 09:41 12:14 RBC (4.30-5.90) m/uL Hgb (13.0-17.5) gm/dL Hct (39.0-53.0) % RDW (11.5-15.5) % Plt Count (150-450) k/uL Neutrophils # (1.3-7.7) k/uL Sodium (137-145) mmol/L Potassium (3.5-5.1) mmol/L BUN (9-20) mg/dL Creatinine (0.66-1.25) mg/dL Glucose (74-99) mg/dL POC Glucose (mg/dL) 154 H 201 H 194 H (70-110) mg/dL 12/17/23 12/17/23 12/18/23 Range/Units 16:35 20:08 06:25 RBC (4.30-5.90) m/uL Hgb (13.0-17.5) gm/dL Hct (39.0-53.0) % RDW (11.5-15.5) % Plt Count (150-450) k/uL Neutrophils # (1.3-7.7) k/uL Sodium (137-145) mmol/L Potassium (3.5-5.1) mmol/L BUN (9-20) mg/dL Creatinine (0.66-1.25) mg/dL Glucose (74-99) mg/dL POC Glucose (mg/dL) 201 H 262 H 187 H (70-110) mg/dL 12/18/23 12/18/23 12/18/23 Range/Units 11:16 16:14 20:21 RBC (4.30-5.90) m/uL Hgb (13.0-17.5) gm/dL Hct (39.0-53.0) % RDW (11.5-15.5) % Plt Count (150-450) k/uL Neutrophils # (1.3-7.7) k/uL Sodium (137-145) mmol/L Potassium (3.5-5.1) mmol/L BUN (9-20) mg/dL Creatinine (0.66-1.25) mg/dL Glucose (74-99) mg/dL POC Glucose (mg/dL) 444 H 338 H 355 H (70-110) mg/dL 12/19/23 12/19/23 12/19/23 Range/Units 06:24 11:46 16:58 RBC (4.30-5.90) m/uL Hgb (13.0-17.5) gm/dL Hct (39.0-53.0) % RDW (11.5-15.5) % Plt Count (150-450) k/uL Neutrophils # (1.3-7.7) k/uL Sodium (137-145) mmol/L Potassium (3.5-5.1) mmol/L BUN (9-20) mg/dL Creatinine (0.66-1.25) mg/dL Glucose (74-99) mg/dL POC Glucose (mg/dL) 281 H 301 H 343 H (70-110) mg/dL 12/19/23 12/20/23 12/20/23 Range/Units 20:16 06:02 11:33 RBC (4.30-5.90) m/uL Hgb (13.0-17.5) gm/dL Hct (39.0-53.0) % RDW (11.5-15.5) % Plt Count (150-450) k/uL Neutrophils # (1.3-7.7) k/uL Sodium (137-145) mmol/L Potassium (3.5-5.1) mmol/L BUN (9-20) mg/dL Creatinine (0.66-1.25) mg/dL Glucose (74-99) mg/dL POC Glucose (mg/dL) 385 H 228 H 308 H (70-110) mg/dL 12/20/23 12/20/23 12/20/23 Range/Units 16:12 20:11 22:27 RBC (4.30-5.90) m/uL Hgb (13.0-17.5) gm/dL Hct (39.0-53.0) % RDW (11.5-15.5) % Plt Count (150-450) k/uL Neutrophils # (1.3-7.7) k/uL Sodium (137-145) mmol/L Potassium (3.5-5.1) mmol/L BUN (9-20) mg/dL Creatinine (0.66-1.25) mg/dL Glucose (74-99) mg/dL POC Glucose (mg/dL) 300 H 403 H 325 H (70-110) mg/dL 12/21/23 12/21/23 12/21/23 Range/Units 06:22 06:41 06:41 RBC 4.04 L (4.30-5.90) m/uL Hgb 12.8 L (13.0-17.5) gm/dL Hct 38.2 L (39.0-53.0) % RDW 15.9 H (11.5-15.5) % Plt Count 120 L (150-450) k/uL Neutrophils # 8.6 H (1.3-7.7) k/uL Sodium 133 L (137-145) mmol/L Potassium 5.3 H (3.5-5.1) mmol/L BUN 28 H (9-20) mg/dL Creatinine 0.59 L (0.66-1.25) mg/dL Glucose 234 H (74-99) mg/dL POC Glucose (mg/dL) 239 H (70-110) mg/dL 12/21/23 Range/Units 11:34 RBC (4.30-5.90) m/uL Hgb (13.0-17.5) gm/dL Hct (39.0-53.0) % RDW (11.5-15.5) % Plt Count (150-450) k/uL Neutrophils # (1.3-7.7) k/uL Sodium (137-145) mmol/L Potassium (3.5-5.1) mmol/L BUN (9-20) mg/dL Creatinine (0.66-1.25) mg/dL Glucose (74-99) mg/dL POC Glucose (mg/dL) 369 H (70-110) mg/dL Microbiology - Last 24 Hours (Table) 12/17/23 10:26 Blood Culture - Preliminary Blood Assessment and Plan Assessment: Impression: acute COPD exacerbation, chest x-ray reveals no acute cardiopulmonary process. Questionable acute subsegmental pulmonary embolism as noted by radiology, although clinically doubtful patient had negative DVT and he is mostly bedbound. He is definitely high risk for DVT and pulmonary embolism Acute hypoxemic respiratory failure, currently on 2 L nasal cannula Sinus tachycardia Lower extremity edema History of diabetes mellitus History of hyperlipidemia History of hypertension History of hemorrhagic stroke Recommendation: Continue present supportive care measures Continue bronchodilators Continue Scar[place] Would recommend repeat CT of the chest in the next few weeks and if negative no need for further anticoagulation therapy, clinically I am not convinced that the patient did actually have thromboembolic disease because the clinical picture did not match the findings on the CT of the chest Will continue to follow Time with Patient: Less than 30
--- NOTE | 2023-12-21 14:17 | P.PN ---
Subjective Progress Note Date: 12/21/23 Patient is an 72-year-old male with known history of CHF, COPD, diabetes type 2 insulin-dependent, history of CVA/TIA with right-sided weakness, GERD, hypertension, hyperlipidemia, memory impairment, osteoarthritis and prior history of smoking was brought to ER due to respiratory distress. Patient was placed on BiPAP in the ER. Patient has been having worsening shortness of breath and low oxygen level. Patient is able to say yes or no questions but unable to provide good history. Laboratory data showed WBC 11.4 hemoglobin 15.3 and platelets 151 Sodium 134 potassium 4.6 chloride 105 bicarb is 27 BUN 11 creatinine 0.16 blood sugar 177 and lactic acid 2.4 on admission liver enzymes not elevated. Troponin x 3 negative. Procalcitonin level is 0.23, pro BNP 188. Patient 1 episode of coffee-ground emesis this morning. Hemoglobin is fairly stable from last night. EKG showed sinus tachycardia with heart rate 123 Chest x-ray showed limited examination due to patient rotation with possible right lower lobe airspace opacities. May represent pneumonia versus atelectasis. Cardiomegaly. Right lower extremity duplex was done due to more swelling compared to left. Negative for DVT in the right lower extremity. Repeat chest x-ray this morning showed chronic changes without evidence for acute pulmonary disease. Patient was given a dose of ceftriaxone and azithromycin in the ER as well as DuoNebs.. He was also given a dose of IV Lasix in the ER. 12/18/2023 Patient is lying in the bed. Awake alert and oriented x 3. Requiring 2 L oxygen via nasal cannula. No further episodes of emesis. Patient is tolerating oral diet. 2D echocardiogram showed ejection fraction 5 to 40% with intracardiac valves not well-visualized. CTA chest showed acute PE involving left lower lobe subsegmental pulmonary artery. No evidence of heart strain. Patient was started on heparin drip. Hemoglobin is fairly stable. Other laboratory WBC 10.9 hemoglobin 13.2 and platelets 136 Cardiology and pulmonary is on board. 12/19/2023 Patient is resting in the bed. Awake alert and oriented. Currently requiring 2 L oxygen via nasal cannula. No further episodes of emesis. Tolerating oral diet. Patient is being continued on heparin drip. Hemoglobin is 12.6 today. Patient did not have any bowel meant today. No complaints of chest pain or shortness of breath. Other laboratory data showed sodium 135 potassium 4.1 chloride 103 bicarb is 28 BUN 24 and creatinine 0.74 and blood sugar is 317. Patient was als o started on preprandial insulin. 12/20/2023 Patient is lying in the bed. Awake alert and oriented. No complaints of chest pain or shortness of breath. Requiring 2 L oxygen via nasal cannula. Patient has been afebrile. No nausea or vomiting. Patient did not have any bowel meant last few days. Otherwise heparin has been changed to Eliquis. Patient is being continued on IV Solu-Medrol, DuoNebs and Pulmicort/Perforomist". Otherwise blood sugar is elevated to 300s this morning. Continue insulin sliding scale and titrate dose as needed.. Patient remains febrile. Laboratory test showed WBC 10.2 hemoglobin 12.1 and platelets 145 sodium 137 potassium 4.5 chloride 100 bicarb is 34 BUN 26 and creatinine 0.74 and calcium 8.7. Pulmonary is on board. 12/20. Patient seen and examined currently on 2 L of oxygen. Blood work done this morning showed WBC 10.3, hemoglobin 12.8, platelet count 120, sodium 133, potassium 5.3 REVIEW OF SYSTEMS: CONSTITUTIONAL: No fever, no malaise,. CARDIOVASCULAR: No chest pain, no palpitations, no syncope. PULMONARY: No shortness of breath, no cough, GASTROINTESTINAL: No diarrhea, no nausea, no vomiting, no abdominal pain. NEUROLOGICAL: No headaches, no weakness, PHYSICAL EXAMINATION: GENERAL: The patient is alert and oriented x3, not in any acute distress. Well developed, well nourished. HEENT: Pupils are round and equally reacting to light. EOMI. No scleral icterus. No conjunctival pallor. Normocephalic, atraumatic. No pharyngeal erythema. No thyromegaly. CARDIOVASCULAR: S1 and S2 present. No murmurs, rubs, or gallops. PULMONARY: Chest is clear to auscultation, no wheezing or crackles. ABDOMEN: Soft, nontender, nondistended, normoactive bowel sounds. No palpable organomegaly. MUSCULOSKELETAL: No joint swelling or deformity. EXTREMITIES: No cyanosis, clubbing, or pedal edema. NEUROLOGICAL: Gross neurological examination did not reveal any focal deficits. SKIN: No rashes. Assessment and plan Acute hypoxic respiratory failure requiring BiPAP on admission Acute COPD exacerbation Acute PE involving left lower lobe subsegmental pulmonary artery. No evidence of heart strain. Coffee-ground emesis x 1 on admission. No further episodes noted. Possible pneumonia less likely Sinus tachycardia Right lower extremity swelling more than left. Duplex scan is negative for DVT. Chronic CHF with mildly reduced ejection fraction Hypertension Hyperlipidemia Hyperglycemia with uncontrolled diabetes type 2 insulin-dependent. A1c 11 History of CVA/TIA with right-sided weakness Cognitive impairment/dementia Osteoarthritis Prior history of smoking Monitor vital signs Monitor CBC Monitor CMP Continue telemetry monitoring Continue breathing treatment -continue IV Solu-Medrol -continue Eliquis Monitor blood sugar levels, continue current insulin regimen Hyperkalemia protocol initiated Cardiology following Pulmonary following Labs and medication were reviewed.. Continue same treatment. Continue with symptomatic treatment. Resume home medication. Monitor labs and vitals. DVT and GI prophylaxis. Further recommendations as per clinical course of the patient Dictation was produced using [employer] dictation software. please excuse any grammatical, word or spelling errors. Objective - Vital Signs Vital signs: Vital Signs Temp 98.4 F 12/21/23 08:00 Pulse 78 12/21/23 08:58 Resp 18 12/21/23 08:00 BP 129/71 12/21/23 08:00 Pulse Ox 98 12/21/23 08:00 FiO2 40 12/17/23 07:12 Intake & Output 12/20/23 12/21/23 12/21/23 18:59 06:59 18:59 Intake Total 1080 540 240 Output Total 500 750 Balance 580 -210 240 Weight 93.5 kg Intake: Oral 1080 540 240 Output: Urine 500 750 Other: Voiding Method External Catheter External Catheter External Catheter - Labs CBC & Chem 7: 12/21/23 06:41 12/21/23 06:41 Labs: Abnormal Lab Results - Last 24 Hours (Table) 12/17/23 12/17/23 12/17/23 Range/Units 06:12 09:41 12:14 RBC (4.30-5.90) m/uL Hgb (13.0-17.5) gm/dL Hct (39.0-53.0) % RDW (11.5-15.5) % Plt Count (150-450) k/uL Neutrophils # (1.3-7.7) k/uL Sodium (137-145) mmol/L Potassium (3.5-5.1) mmol/L BUN (9-20) mg/dL Creatinine (0.66-1.25) mg/dL Glucose (74-99) mg/dL POC Glucose (mg/dL) 154 H 201 H 194 H (70-110) mg/dL 12/17/23 12/17/23 12/18/23 Range/Units 16:35 20:08 06:25 RBC (4.30-5.90) m/uL Hgb (13.0-17.5) gm/dL Hct (39.0-53.0) % RDW (11.5-15.5) % Plt Count (150-450) k/uL Neutrophils # (1.3-7.7) k/uL Sodium (137-145) mmol/L Potassium (3.5-5.1) mmol/L BUN (9-20) mg/dL Creatinine (0.66-1.25) mg/dL Glucose (74-99) mg/dL POC Glucose (mg/dL) 201 H 262 H 187 H (70-110) mg/dL 12/18/23 12/18/23 12/18/23 Range/Units 11:16 16:14 20:21 RBC (4.30-5.90) m/uL Hgb (13.0-17.5) gm/dL Hct (39.0-53.0) % RDW (11.5-15.5) % Plt Count (150-450) k/uL Neutrophils # (1.3-7.7) k/uL Sodium (137-145) mmol/L Potassium (3.5-5.1) mmol/L BUN (9-20) mg/dL Creatinine (0.66-1.25) mg/dL Glucose (74-99) mg/dL POC Glucose (mg/dL) 444 H 338 H 355 H (70-110) mg/dL 12/19/23 12/19/23 12/19/23 Range/Units 06:24 11:46 16:58 RBC (4.30-5.90) m/uL Hgb (13.0-17.5) gm/dL Hct (39.0-53.0) % RDW (11.5-15.5) % Plt Count (150-450) k/uL Neutrophils # (1.3-7.7) k/uL Sodium (137-145) mmol/L Potassium (3.5-5.1) mmol/L BUN (9-20) mg/dL Creatinine (0.66-1.25) mg/dL Glucose (74-99) mg/dL POC Glucose (mg/dL) 281 H 301 H 343 H (70-110) mg/dL 12/19/23 12/20/23 12/20/23 Range/Units 20:16 06:02 11:33 RBC (4.30-5.90) m/uL Hgb (13.0-17.5) gm/dL Hct (39.0-53.0) % RDW (11.5-15.5) % Plt Count (150-450) k/uL Neutrophils # (1.3-7.7) k/uL Sodium (137-145) mmol/L Potassium (3.5-5.1) mmol/L BUN (9-20) mg/dL Creatinine (0.66-1.25) mg/dL Glucose (74-99) mg/dL POC Glucose (mg/dL) 385 H 228 H 308 H (70-110) mg/dL 12/20/23 12/20/23 12/20/23 Range/Units 16:12 20:11 22:27 RBC (4.30-5.90) m/uL Hgb (13.0-17.5) gm/dL Hct (39.0-53.0) % RDW (11.5-15.5) % Plt Count (150-450) k/uL Neutrophils # (1.3-7.7) k/uL Sodium (137-145) mmol/L Potassium (3.5-5.1) mmol/L BUN (9-20) mg/dL Creatinine (0.66-1.25) mg/dL Glucose (74-99) mg/dL POC Glucose (mg/dL) 300 H 403 H 325 H (70-110) mg/dL 12/21/23 12/21/23 12/21/23 Range/Units 06:22 06:41 06:41 RBC 4.04 L (4.30-5.90) m/uL Hgb 12.8 L (13.0-17.5) gm/dL Hct 38.2 L (39.0-53.0) % RDW 15.9 H (11.5-15.5) % Plt Count 120 L (150-450) k/uL Neutrophils # 8.6 H (1.3-7.7) k/uL Sodium 133 L (137-145) mmol/L Potassium 5.3 H (3.5-5.1) mmol/L BUN 28 H (9-20) mg/dL Creatinine 0.59 L (0.66-1.25) mg/dL Glucose 234 H (74-99) mg/dL POC Glucose (mg/dL) 239 H (70-110) mg/dL Microbiology - Last 24 Hours (Table) 12/17/23 10:26 Blood Culture - Preliminary Blood
[2023-12-21 16:21] LABS: Glucose,Whole Blood 298 mg/dL (70-110)
[2023-12-21 20:02] LABS: Glucose,Whole Blood 375 mg/dL (70-110)
[2023-12-22 05:44] LABS: Glucose,Whole Blood 224 mg/dL (70-110)
[2023-12-22 11:39] LABS: Glucose,Whole Blood 343 mg/dL (70-110)
--- NOTE | 2023-12-22 14:13 | P.PN ---
Subjective Progress Note Date: 12/22/23 Patient is an 72-year-old male with known history of CHF, COPD, diabetes type 2 insulin-dependent, history of CVA/TIA with right-sided weakness, GERD, hypertension, hyperlipidemia, memory impairment, osteoarthritis and prior history of smoking was brought to ER due to respiratory distress. Patient was placed on BiPAP in the ER. Patient has been having worsening shortness of breath and low oxygen level. Patient is able to say yes or no questions but unable to provide good history. Laboratory data showed WBC 11.4 hemoglobin 15.3 and platelets 151 Sodium 134 potassium 4.6 chloride 105 bicarb is 27 BUN 11 creatinine 0.16 blood sugar 177 and lactic acid 2.4 on admission liver enzymes not elevated. Troponin x 3 negative. Procalcitonin level is 0.23, pro BNP 188. Patient 1 episode of coffee-ground emesis this morning. Hemoglobin is fairly stable from last night. EKG showed sinus tachycardia with heart rate 123 Chest x-ray showed limited examination due to patient rotation with possible right lower lobe airspace opacities. May represent pneumonia versus atelectasis. Cardiomegaly. Right lower extremity duplex was done due to more swelling compared to left. Negative for DVT in the right lower extremity. Repeat chest x-ray this morning showed chronic changes without evidence for acute pulmonary disease. Patient was given a dose of ceftriaxone and azithromycin in the ER as well as DuoNebs.. He was also given a dose of IV Lasix in the ER. 12/18/2023 Patient is lying in the bed. Awake alert and oriented x 3. Requiring 2 L oxygen via nasal cannula. No further episodes of emesis. Patient is tolerating oral diet. 2D echocardiogram showed ejection fraction 5 to 40% with intracardiac valves not well-visualized. CTA chest showed acute PE involving left lower lobe subsegmental pulmonary artery. No evidence of heart strain. Patient was started on heparin drip. Hemoglobin is fairly stable. Other laboratory WBC 10.9 hemoglobin 13.2 and platelets 136 Cardiology and pulmonary is on board. 12/19/2023 Patient is resting in the bed. Awake alert and oriented. Currently requiring 2 L oxygen via nasal cannula. No further episodes of emesis. Tolerating oral diet. Patient is being continued on heparin drip. Hemoglobin is 12.6 today. Patient did not have any bowel meant today. No complaints of chest pain or shortness of breath. Other laboratory data showed sodium 135 potassium 4.1 chloride 103 bicarb is 28 BUN 24 and creatinine 0.74 and blood sugar is 317. Patient was als o started on preprandial insulin. 12/20/2023 Patient is lying in the bed. Awake alert and oriented. No complaints of chest pain or shortness of breath. Requiring 2 L oxygen via nasal cannula. Patient has been afebrile. No nausea or vomiting. Patient did not have any bowel meant last few days. Otherwise heparin has been changed to Eliquis. Patient is being continued on IV Solu-Medrol, DuoNebs and Pulmicort/Perforomist". Otherwise blood sugar is elevated to 300s this morning. Continue insulin sliding scale and titrate dose as needed.. Patient remains febrile. Laboratory test showed WBC 10.2 hemoglobin 12.1 and platelets 145 sodium 137 potassium 4.5 chloride 100 bicarb is 34 BUN 26 and creatinine 0.74 and calcium 8.7. Pulmonary is on board. 12/20. Patient seen and examined currently on 2 L of oxygen. Blood work done this morning showed WBC 10.3, hemoglobin 12.8, platelet count 120, sodium 133, potassium 5.3 12/21. Patient seen and examined. Gets short of breath on exertion. Nursing staff has noted that the patient occasionally has a stridor REVIEW OF SYSTEMS: CONSTITUTIONAL: No fever, no malaise,. CARDIOVASCULAR: No chest pain, no palpitations, no syncope. PULMONARY: No shortness of breath, no cough, GASTROINTESTINAL: No diarrhea, no nausea, no vomiting, no abdominal pain. NEUROLOGICAL: No headaches, no weakness, PHYSICAL EXAMINATION: GENERAL: The patient is alert and oriented x3, chronically ill looking HEENT: Pupils are round and equally reacting to light. EOMI. No scleral icterus. No conjunctival pallor. Normocephalic, atraumatic. No pharyngeal erythema. No thyromegaly. CARDIOVASCULAR: S1 and S2 present. No murmurs, rubs, or gallops. PULMONARY: Coarse breath sound bilaterally, no wheezing or crackles. ABDOMEN: Soft, nontender, nondistended, normoactive bowel sounds. No palpable organomegaly. MUSCULOSKELETAL: No joint swelling or deformity. EXTREMITIES: No cyanosis, clubbing, or pedal edema. NEUROLOGICAL: Gross neurological examination did not reveal any focal deficits. SKIN: No rashes. Assessment and plan Acute hypoxic respiratory failure requiring BiPAP on admission Acute COPD exacerbation Acute PE involving left lower lobe subsegmental pulmonary artery. No evidence of heart strain. Coffee-ground emesis x 1 on admission. No further episodes noted. Possible pneumonia less likely Sinus tachycardia Right lower extremity swelling more than left. Duplex scan is negative for DVT. Chronic CHF with mildly reduced ejection fraction Hypertension Hyperlipidemia Hyperglycemia with uncontrolled diabetes type 2 insulin-dependent. A1c 11 History of CVA/TIA with right-sided weakness Cognitive impairment/dementia Osteoarthritis Prior history of smoking Monitor vital signs Monitor CBC Monitor CMP Continue telemetry monitoring Continue breathing treatment -continue IV Solu-Medrol -continue Eliquis Monitor blood sugar levels, continue current insulin regimen Hyperkalemia resolved Cardiology following Pulmonary following PT and OT recommend rehab Labs and medication were reviewed.. Continue same treatment. Continue with symptomatic treatment. Resume home medication. Monitor labs and vitals. DVT and GI prophylaxis. Further recommendations as per clinical course of the patient Dictation was produced using [employer] dictation software. please excuse any grammatical, word or spelling errors. Objective - Vital Signs Vital signs: Vital Signs Temp 97.9 F 12/21/23 20:00 Pulse 88 12/22/23 09:19 Resp 16 12/22/23 07:26 BP 145/82 12/22/23 08:00 Pulse Ox 95 12/22/23 08:00 FiO2 40 12/17/23 07:12 Intake & Output 12/21/23 12/22/23 12/22/23 18:59 06:59 18:59 Intake Total 360 540 240 Output Total 850 500 Balance -490 40 240 Weight 88 kg Intake: Oral 360 540 240 Output: Urine 850 500 Other: Voiding Method External Catheter External Catheter External Catheter - Labs CBC & Chem 7: 12/21/23 06:41 12/21/23 13:29 Labs: Abnormal Lab Results - Last 24 Hours (Table) 12/21/23 12/21/23 12/21/23 Range/Units 11:34 16:20 20:00 POC Glucose (mg/dL) 369 H 298 H 375 H (70-110) mg/dL 12/22/23 Range/Units 05:43 POC Glucose (mg/dL) 224 H (70-110) mg/dL Microbiology - Last 24 Hours (Table) 12/16/23 14:38 Blood Culture - Final Blood
--- NOTE | 2023-12-22 14:25 | P.PN ---
Subjective Progress Note Date: 12/22/23 Principal diagnosis: Acute exacerbation of COPD, possible acute pulmonary embolism involving left lower lobe subsegmental pulmonary artery Patient is a 73-year-old male with a documented past medical history significant for GERD, hypertension, hyperlipidemia, diabetes, stroke, COPD. Patient is currently not answering any of my questions. Patient may have history of dementia per ER documentation, I am unsure of his baseline mentation. Family not currently present, and HPI supplemented by ER documentation. On arrival to the emergency department, the ER provider reportedly noted the patient to be in respiratory distress. He was placed on BiPAP with current settings of 14/6 and FiO2 of 40%. On my evaluation, patient remains in the emergency department. He is lying in bed. Remains on BiPAP. Generating tidal volumes of 250 to 300 mL. Respiratory rate is 18. SpO2 99%. Patient is alert and follows simple commands. He shakes his head yes and no to direct questioning, however, does not speak. He denies being short of breath. Denies any pain. There are some minimal wheezing on auscultation. Chest x-ray was a limited exam as the patient is rotated. Possible right lower lung atelectasis versus infectious process. Cardiomegaly. CBC: WBC count 11.5, hemoglobin 15.3, hematocrit 47.2, platelets 151. CMP: Sodium 135, potassium 4.6, chloride 105, serum bicarb 27, BUN 11, creatinine 0.62, glucose 177. Lactic 2.4 and currently 2. LFTs unremarkable. Troponins not elevated. EKG: sinus tachycardia, rate 123 bpm, no obvious acute ischemic changes. Currently afebrile. Started empirically on azithromycin and Rocephin in the emergency department. Remains tachycardic. Continues on BiPAP. The patient is seen today December 18, 2023 in follow-up on the selective care unit. He is currently resting in bed. Awake and alert in no acute distress. Maintaining O2 saturations in the 90s on 2 L/min per nasal cannula. Doppler of the lower extremities were negative for DVT bilaterally. Follow-up chest x-ray revealed chronic changes without acute pulmonary disease. Echocardiogram revealed impaired left ventricular systolic function with ejection fraction [address] scan of the brain revealed no acute intracranial process. Blood cultures revealed no growth to date. White count 8.1. Hemoglobin 13.6. Platelets 139. Sodium 135. Potassium 4.4. Bicarb 32. BUN 25. Creatinine 0.77. Glucose 272. Stool for occult blood positive. He is continued on bronchodilators and steroids. Patient was seen today on 12/19/2023, remains on the cardiac floor, does not seem to be in any distress, asymptomatic on 2 L nasal cannula, on bronchodilators is also on anticoagulation therapy for questionable pulmonary embolism. Clinically I am not quite convinced that the patient has pulmonary embolism hence I would recommend repeat CT angiogram of the chest in the next couple of weeks postdischarge. In the meantime continue anticoagulation therapy as ordered by the admitting physician Evaluated today on 12/20/2023, patient is doing well, on 2 L nasal cannula O2 sats at 94%, patient is nonverbal, not in any distress, patient is now on anticoagulation therapy for presumptive pulmonary embolism although clinically it is not very convincing. Patient is being considered for discharge to rehab, and that is in progress.WBC count is 10.2 hemoglobin 12.1 electrolytes are normal renal profile is normal Patient was evaluated today on 12/21/2023, doing fairly well, does not seem to be in distress, on 2 L nasal cannula, Patient is supposedly awaiting placement. His labs were unremarkable including CBC and basic metabolic profile except for slightly elevated potassium of 5.3, renal profile is normal Seen today on 12/22/2023, patient is basically about the same, resting in bed, nonverbal, not in any distress, on 2 L nasal cannula. Awaiting possibly placement in the next 24 hours. WBC count is 5.7 hemoglobin 11.5, basic metabolic profile is normal bicarb is 40 Objective - Vital Signs Vital signs: Vital Signs Temp 97.9 F 12/21/23 20:00 Pulse 92 12/22/23 12:00 Resp 18 12/22/23 12:28 BP 134/83 12/22/23 12:00 Pulse Ox 96 12/22/23 12:00 FiO2 40 12/17/23 07:12 Intake & Output 12/21/23 12/22/23 12/22/23 18:59 06:59 18:59 Intake Total 360 540 358 Output Total 850 500 500 Balance -490 40 -142 Weight 88 kg Intake: Oral 360 540 358 Output: Urine 850 500 500 Other: Voiding Method External Catheter External Catheter External Catheter - Exam GENERAL EXAM: 73-year-old white male in no distress on 2 L nasal cannula, nonverbal. HEAD: Normocephalic and atraumatic EYES: Normal reaction of pupils, equal size. NOSE: Clear with pink turbinates. THROAT: No erythema or exudates. NECK: No masses, no JVD. CHEST: No chest wall deformity. LUNGS: Diminished breath sound bilaterally no crackles rhonchi or wheezes se. CVS: S1 and S2 normal with no audible murmur, regular rhythm. No extra heart sounds. ABDOMEN: No hepatosplenomegaly, active bowel sounds, no guarding or rigidity. SKIN: No rashes CENTRAL NERVOUS SYSTEM: No focal deficits, tone is normal in all 4 extremities. EXTREMITIES: There is significant unilateral leg swelling, right greater than left. No clubbing or cyanosis. Peripheral pulses are intact. - Labs CBC & Chem 7: 12/21/23 06:41 12/21/23 13:29 Labs: Abnormal Lab Results - Last 24 Hours (Table) 12/21/23 12/21/23 12/22/23 Range/Units 16:20 20:00 05:43 POC Glucose (mg/dL) 298 H 375 H 224 H (70-110) mg/dL 12/22/23 Range/Units 11:37 POC Glucose (mg/dL) 343 H (70-110) mg/dL Microbiology - Last 24 Hours (Table) 12/16/23 14:38 Blood Culture - Final Blood Assessment and Plan Assessment: Impression: acute COPD exacerbation, chest x-ray reveals no acute cardiopulmonary process. Questionable acute subsegmental pulmonary embolism as noted by radiology, although clinically doubtful patient had negative DVT and he is mostly bedbound. He is definitely high risk for DVT and pulmonary embolism Acute hypoxemic respiratory failure, currently on 2 L nasal cannula Sinus tachycardia Lower extremity edema History of diabetes mellitus History of hyperlipidemia History of hypertension History of hemorrhagic stroke Recommendation: Continue present supportive care measures Continue bronchodilators Continue Eliquis Will clear the patient for discharge to rehab or residential in the next 24 hours. Will continue to follow Time with Patient: Less than 30
[2023-12-22 16:26] LABS: Glucose,Whole Blood 367 mg/dL (70-110)
[2023-12-22 20:31] LABS: Glucose,Whole Blood 217 mg/dL (70-110)
[2023-12-22] MEDS: METOPROLOL TARTRATE 5 MG/5 ML VIAL IVP PRN (22:07)
[2023-12-23] MEDS: METOPROLOL TARTRATE 25 MG TAB PO STA (00:13)
[2023-12-23 06:08] LABS: Glucose,Whole Blood 263 mg/dL (70-110)
[2023-12-23] MEDS: METOPROLOL TARTRATE 50 MG TAB PO SCH (08:47)
[2023-12-23] MEDS: ALPRAZolam 0.25 MG TAB PO STA (09:38)
--- NOTE | 2023-12-23 10:39 | XR ---
EXAMINATION TYPE: XR chest 1V portable DATE OF EXAM: 12/23/2023 10:29 AM COMPARISON: Chest radiographs from 12/17/2023 TECHNIQUE: XR chest 1V portable Portable AP radiograph of the chest. CLINICAL INDICATION:Male, 73 years old with history of Dyspnea; FINDINGS: Patient is rotated which limits evaluation. Lungs/Pleura: There is no evidence of pleural effusion, focal consolidation, or pneumothorax. Pulmonary vascularity: Unremarkable. Heart/mediastinum: Cardiomediastinal silhouette is enlarged and stable. Musculoskeletal: No acute osseous pathology. IMPRESSION: No acute cardiopulmonary disease/process. [facility], , 12/23/2023 10:37 AM
[2023-12-23 11:28] LABS: Glucose,Whole Blood 287 mg/dL (70-110)
--- NOTE | 2023-12-23 12:36 | P.PN ---
Subjective Progress Note Date: 12/23/23 Patient is an 72-year-old male with known history of CHF, COPD, diabetes type 2 insulin-dependent, history of CVA/TIA with right-sided weakness, GERD, hypertension, hyperlipidemia, memory impairment, osteoarthritis and prior history of smoking was brought to ER due to respiratory distress. Patient was placed on BiPAP in the ER. Patient has been having worsening shortness of breath and low oxygen level. Patient is able to say yes or no questions but unable to provide good history. Laboratory data showed WBC 11.4 hemoglobin 15.3 and platelets 151 Sodium 134 potassium 4.6 chloride 105 bicarb is 27 BUN 11 creatinine 0.16 blood sugar 177 and lactic acid 2.4 on admission liver enzymes not elevated. Troponin x 3 negative. Procalcitonin level is 0.23, pro BNP 188. Patient 1 episode of coffee-ground emesis this morning. Hemoglobin is fairly stable from last night. EKG showed sinus tachycardia with heart rate 123 Chest x-ray showed limited examination due to patient rotation with possible right lower lobe airspace opacities. May represent pneumonia versus atelectasis. Cardiomegaly. Right lower extremity duplex was done due to more swelling compared to left. Negative for DVT in the right lower extremity. Repeat chest x-ray this morning showed chronic changes without evidence for acute pulmonary disease. Patient was given a dose of ceftriaxone and azithromycin in the ER as well as DuoNebs.. He was also given a dose of IV Lasix in the ER. 12/18/2023 Patient is lying in the bed. Awake alert and oriented x 3. Requiring 2 L oxygen via nasal cannula. No further episodes of emesis. Patient is tolerating oral diet. 2D echocardiogram showed ejection fraction 5 to 40% with intracardiac valves not well-visualized. CTA chest showed acute PE involving left lower lobe subsegmental pulmonary artery. No evidence of heart strain. Patient was started on heparin drip. Hemoglobin is fairly stable. Other laboratory WBC 10.9 hemoglobin 13.2 and platelets 136 Cardiology and pulmonary is on board. 12/19/2023 Patient is resting in the bed. Awake alert and oriented. Currently requiring 2 L oxygen via nasal cannula. No further episodes of emesis. Tolerating oral diet. Patient is being continued on heparin drip. Hemoglobin is 12.6 today. Patient did not have any bowel meant today. No complaints of chest pain or shortness of breath. Other laboratory data showed sodium 135 potassium 4.1 chloride 103 bicarb is 28 BUN 24 and creatinine 0.74 and blood sugar is 317. Patient was als o started on preprandial insulin. 12/20/2023 Patient is lying in the bed. Awake alert and oriented. No complaints of chest pain or shortness of breath. Requiring 2 L oxygen via nasal cannula. Patient has been afebrile. No nausea or vomiting. Patient did not have any bowel meant last few days. Otherwise heparin has been changed to Eliquis. Patient is being continued on IV Solu-Medrol, DuoNebs and Pulmicort/Perforomist". Otherwise blood sugar is elevated to 300s this morning. Continue insulin sliding scale and titrate dose as needed.. Patient remains febrile. Laboratory test showed WBC 10.2 hemoglobin 12.1 and platelets 145 sodium 137 potassium 4.5 chloride 100 bicarb is 34 BUN 26 and creatinine 0.74 and calcium 8.7. Pulmonary is on board. 12/20. Patient seen and examined currently on 2 L of oxygen. Blood work done this morning showed WBC 10.3, hemoglobin 12.8, platelet count 120, sodium 133, potassium 5.3 12/21. Patient seen and examined. Gets short of breath on exertion. Nursing staff has noted that the patient occasionally has a stridor. 12/22. Patient seen and examined. Patient was anxious this morning, was getting short of breath on exertion. Patient also had stridor, that resolved after breathing treatment. Patient had to be placed on heated high flow. REVIEW OF SYSTEMS: CONSTITUTIONAL: No fever, no malaise,. CARDIOVASCULAR: No chest pain, no palpitations, no syncope. PULMONARY: As mentioned above GASTROINTESTINAL: No diarrhea, no nausea, no vomiting, no abdominal pain. NEUROLOGICAL: No headaches, no weakness, PHYSICAL EXAMINATION: GENERAL: The patient is alert and oriented x3, chronically ill looking HEENT: Pupils are round and equally reacting to light. EOMI. No scleral icterus. No conjunctival pallor. Normocephalic, atraumatic. No pharyngeal erythema. No thyromegaly. CARDIOVASCULAR: S1 and S2 present. No murmurs, rubs, or gallops. PULMONARY: Coarse breath sound bilaterally, bilateral expiratory wheeze audible ABDOMEN: Soft, nontender, nondistended, normoactive bowel sounds. No palpable organomegaly. MUSCULOSKELETAL: No joint swelling or deformity. EXTREMITIES: No cyanosis, clubbing, or pedal edema. NEUROLOGICAL: Gross neurological examination did not reveal any focal deficits. SKIN: No rashes. Assessment and plan Acute hypoxic respiratory failure requiring BiPAP on admission Acute COPD exacerbation Acute PE involving left lower lobe subsegmental pulmonary artery. No evidence of heart strain. Coffee-ground emesis x 1 on admission. No further episodes noted. Possible pneumonia less likely Sinus tachycardia Right lower extremity swelling more than left. Duplex scan is negative for DVT. Chronic CHF with mildly reduced ejection fraction Hypertension Hyperlipidemia Hyperglycemia with uncontrolled diabetes type 2 insulin-dependent. A1c 11 History of CVA/TIA with right-sided weakness Cognitive impairment/dementia Osteoarthritis Prior history of smoking Monitor vital signs Monitor CBC Monitor CMP Continue telemetry monitoring Continue breathing treatment -continue IV Solu-Medrol -continue Eliquis Monitor blood sugar levels, continue current insulin regimen Cardiology following Pulmonary following PT and OT recommend rehab Labs and medication were reviewed.. Continue same treatment. Continue with symptomatic treatment. Resume home medication. Monitor labs and vitals. DVT and GI prophylaxis. Further recommendations as per clinical course of the patient Dictation was produced using [employer] dictation software. please excuse any grammatical, word or spelling errors. Objective - Vital Signs Vital signs: Vital Signs Temp 97.6 F 12/23/23 08:45 Pulse 100 12/23/23 08:58 Resp 16 12/23/23 08:45 BP 136/80 12/23/23 08:45 Pulse Ox 99 12/23/23 08:45 FiO2 40 12/17/23 07:12 Intake & Output 12/22/23 12/23/23 12/23/23 18:59 06:59 18:59 Intake Total 476 120 Output Total 900 200 Balance -424 -200 120 Weight 51 kg Intake: Oral 476 120 Output: Urine 900 200 Other: Voiding Method External Catheter External Catheter External Catheter - Labs CBC & Chem 7: 12/21/23 06:41 12/21/23 13:29 Labs: Abnormal Lab Results - Last 24 Hours (Table) 12/22/23 12/22/23 12/22/23 Range/Units 11:37 16:25 20:28 POC Glucose (mg/dL) 343 H 367 H 217 H (70-110) mg/dL 12/23/23 Range/Units 06:06 POC Glucose (mg/dL) 263 H (70-110) mg/dL Microbiology - Last 24 Hours (Table) 12/17/23 10:26 Blood Culture - Final Blood
--- NOTE | 2023-12-23 14:06 | P.PN ---
Subjective Progress Note Date: 12/23/23 Principal diagnosis: Shortness of breath. Patient is a 73-year-old male with a documented past medical history significant for GERD, hypertension, hyperlipidemia, diabetes, stroke, COPD. Patient is currently not answering any of my questions. Patient may have history of dementi a per ER documentation, I am unsure of his baseline mentation. Family not currently present, and HPI supplemented by ER documentation. On arrival to the emergency department, the ER provider reportedly noted the patient to be in respiratory distress. He was placed on BiPAP with current settings of 14/6 and FiO2 of 40%. On my evaluation, patient remains in the emergency department. He is lying in bed. Remains on BiPAP. Generating tidal volumes of 250 to 300 mL. Respiratory rate is 18. SpO2 99%. Patient is alert and follows simple commands. He shakes his head yes and no to direct questioning, however, does not speak. He denies being short of breath. Denies any pain. There are some minimal wheezing on auscultation. Chest x-ray was a limited exam as the patient is rotated. Possible right lower lung atelectasis versus infectious process. Cardiomegaly. CBC: WBC count 11.5, hemoglobin 15.3, hematocrit 47.2, platelets 151. CMP: Sodium 135, potassium 4.6, chloride 105, serum bicarb 27, BUN 11, creatinine 0.62, glucose 177. Lactic 2.4 and currently 2. LFTs unremarkable. Troponins not elevated. EKG: sinus tachycardia, rate 123 bpm, no obvious acute ischemic changes. Currently afebrile. Started empirically on azithromycin and Rocephin in the emergency department. Remains tachycardic. Continues on BiPAP. The patient is seen today December 18, 2023 in follow-up on the selective care unit. He is currently resting in bed. Awake and alert in no acute distress. Maintaining O2 saturations in the 90s on 2 L/min per nasal cannula. Doppler of the lower extremities were negative for DVT bilaterally. Follow-up chest x-ray revealed chronic changes without acute pulmonary disease. Echocardiogram revealed impaired left ventricular systolic function with ejection fraction 40 [address] 45%. [address] scan of the brain revealed no acute intracranial process. Blood cultures revealed no growth to date. White count 8.1. Hemoglobin 13.6. Platelets 139. Sodium 135. Potassium 4.4. Bicarb 32. BUN 25. Creatinine 0.77. Glucose 272. Stool for occult blood positive. He is continued on bronchodilators and steroids. Patient was seen today on 12/19/2023, remains on the cardiac floor, does not seem to be in any distress, asymptomatic on 2 L nasal cannula, on bronchodilators is also on anticoagulation therapy for questionable pulmonary embolism. Clinically I am not quite convinced that the patient has pulmonary embolism hence I would recommend repeat CT angiogram of the chest in the next couple of weeks postdischarge. In the meantime continue anticoagulation therapy as ordered by the admitting physician Evaluated today on 12/20/2023, patient is doing well, on 2 L nasal cannula O2 sats at 94%, patient is nonverbal, not in any distress, patient is now on anticoagulation therapy for presumptive pulmonary embolism although clinically it is not very convincing. Patient is being considered for discharge to rehab, and that is in progress.WBC count is 10.2 hemoglobin 12.1 electrolytes are normal renal profile is normal Patient was evaluated today on 12/21/2023, doing fairly well, does not seem to be in distress, on 2 L nasal cannula, Patient is supposedly awaiting placement. His labs were unremarkable including CBC and basic metabolic profile except for slightly elevated potassium of 5.3, renal profile is normal Seen today on 12/22/2023, patient is basically about the same, resting in bed, nonverbal, not in any distress, on 2 L nasal cannula. Awaiting possibly placement in the next 24 hours. WBC count is 5.7 hemoglobin 11.5, basic metabolic profile is normal bicarb is 40 Progress note dated December 23, 2023. 73-year-old male seen today in room 361. The patient continues on 15 L high flow nasal O2. He is not receiving any IV fluids. His saturations are 100%. The oxygen can be titrated down. The patient appears to be relatively stable. No new labs today other than a glucose of 287. Blood cultures are currently negative. Chest x-ray shows no acute cardiopulmonary abnormality. Objective - Vital Signs Vital signs: Vital Signs Temp 98.3 F 12/23/23 12:05 Pulse 95 12/23/23 12:05 Resp 20 12/23/23 12:05 BP 118/83 12/23/23 12:05 Pulse Ox 100 12/23/23 12:05 FiO2 40 12/17/23 07:12 Intake & Output 12/22/23 12/23/23 12/23/23 18:59 06:59 18:59 Intake Total 476 320 Output Total 900 200 Balance -424 -200 320 Weight 51 kg Intake: Oral 476 320 Output: Urine 900 200 Other: Voiding Method External Catheter External Catheter External Catheter - Exam No acute distress, oriented 3. Currently on 15 L high flow O2. HEENT examination is grossly unremarkable. Mucous membranes are moist. No oral lesions. Neck supple. Full range of motion. No adenopathy thyromegaly or neck vein distention. Cardiovascular examination reveals regular rhythm rate. S1-S2 normal. No S3 or S4. No discernible murmur noted. Heart sounds are distant. Lungs reveal clear but diminished breath sounds. No crackles, rhonchi, or wheezes. Abdomen soft bowel sounds are heard. No masses or tenderness. Extremities reveal right greater than left lower extremity edema. No cyanosis or clubbing. Skin is without rash or lesion. Neurologic examination is brief but nonfocal. - Labs CBC & Chem 7: 12/21/23 06:41 12/21/23 13:29 Labs: Abnormal Lab Results - Last 24 Hours (Table) 12/22/23 12/22/23 12/23/23 Range/Units 16:25 20:28 06:06 POC Glucose (mg/dL) 367 H 217 H 263 H (70-110) mg/dL 12/23/23 Range/Units 11:25 POC Glucose (mg/dL) 287 H (70-110) mg/dL Microbiology - Last 24 Hours (Table) 12/17/23 10:26 Blood Culture - Final Blood Assessment and Plan Assessment: Acute COPD exacerbation. Acute hypoxemic respiratory failure. Sinus tachycardia. Lower extremity edema. History of diabetes mellitus. History of hyperlipidemia. History of hypertension. History of hemorrhagic stroke. Plan: Plan dated December 23, 2023. The patient continues on appropriate bronchodilators, and other supportive care. The patient also continues on his factor Xa inhibitor. Labs, x-rays, medications are reviewed. The patient is a no code patient. When he was seen today, he was on 15 L high flow nasal O2. Saturations were 100%, and that oxygen can be titrated downward. We will continue to follow. Prognosis is certainly guarded. Labs, x-rays, and all medications have been reviewed. Time with Patient: Less than 30
[2023-12-23 16:27] LABS: Glucose,Whole Blood 275 mg/dL (70-110)
[2023-12-23] MEDS ORDERED: ALPRAZolam 0.25 MG TAB PO PRN (17:37)
[2023-12-23 20:21] LABS: Glucose,Whole Blood 370 mg/dL (70-110)
[2023-12-24 07:05] LABS: Glucose,Whole Blood 118 mg/dL (70-110)
[2023-12-24 11:59] LABS: Glucose,Whole Blood 195 mg/dL (70-110)
--- NOTE | 2023-12-24 12:37 | P.PN ---
Subjective Progress Note Date: 12/24/23 Patient is an 72-year-old male with known history of CHF, COPD, diabetes type 2 insulin-dependent, history of CVA/TIA with right-sided weakness, GERD, hypertension, hyperlipidemia, memory impairment, osteoarthritis and prior history of smoking was brought to ER due to respiratory distress. Patient was placed on BiPAP in the ER. Patient has been having worsening shortness of breath and low oxygen level. Patient is able to say yes or no questions but unable to provide good history. Laboratory data showed WBC 11.4 hemoglobin 15.3 and platelets 151 Sodium 134 potassium 4.6 chloride 105 bicarb is 27 BUN 11 creatinine 0.16 blood sugar 177 and lactic acid 2.4 on admission liver enzymes not elevated. Troponin x 3 negative. Procalcitonin level is 0.23, pro BNP 188. Patient 1 episode of coffee-ground emesis this morning. Hemoglobin is fairly stable from last night. EKG showed sinus tachycardia with heart rate 123 Chest x-ray showed limited examination due to patient rotation with possible right lower lobe airspace opacities. May represent pneumonia versus atelectasis. Cardiomegaly. Right lower extremity duplex was done due to more swelling compared to left. Negative for DVT in the right lower extremity. Repeat chest x-ray this morning showed chronic changes without evidence for acute pulmonary disease. Patient was given a dose of ceftriaxone and azithromycin in the ER as well as DuoNebs.. He was also given a dose of IV Lasix in the ER. 12/18/2023 Patient is lying in the bed. Awake alert and oriented x 3. Requiring 2 L oxygen via nasal cannula. No further episodes of emesis. Patient is tolerating oral diet. 2D echocardiogram showed ejection fraction 5 to 40% with intracardiac valves not well-visualized. CTA chest showed acute PE involving left lower lobe subsegmental pulmonary artery. No evidence of heart strain. Patient was started on heparin drip. Hemoglobin is fairly stable. Other laboratory WBC 10.9 hemoglobin 13.2 and platelets 136 Cardiology and pulmonary is on board. 12/19/2023 Patient is resting in the bed. Awake alert and oriented. Currently requiring 2 L oxygen via nasal cannula. No further episodes of emesis. Tolerating oral diet. Patient is being continued on heparin drip. Hemoglobin is 12.6 today. Patient did not have any bowel meant today. No complaints of chest pain or shortness of breath. Other laboratory data showed sodium 135 potassium 4.1 chloride 103 bicarb is 28 BUN 24 and creatinine 0.74 and blood sugar is 317. Patient was als o started on preprandial insulin. 12/20/2023 Patient is lying in the bed. Awake alert and oriented. No complaints of chest pain or shortness of breath. Requiring 2 L oxygen via nasal cannula. Patient has been afebrile. No nausea or vomiting. Patient did not have any bowel meant last few days. Otherwise heparin has been changed to Eliquis. Patient is being continued on IV Solu-Medrol, DuoNebs and Pulmicort/Perforomist". Otherwise blood sugar is elevated to 300s this morning. Continue insulin sliding scale and titrate dose as needed.. Patient remains febrile. Laboratory test showed WBC 10.2 hemoglobin 12.1 and platelets 145 sodium 137 potassium 4.5 chloride 100 bicarb is 34 BUN 26 and creatinine 0.74 and calcium 8.7. Pulmonary is on board. 12/20. Patient seen and examined currently on 2 L of oxygen. Blood work done this morning showed WBC 10.3, hemoglobin 12.8, platelet count 120, sodium 133, potassium 5.3 12/21. Patient seen and examined. Gets short of breath on exertion. Nursing staff has noted that the patient occasionally has a stridor. 12/22. Patient seen and examined. Patient was anxious this morning, was getting short of breath on exertion. Patient also had stridor, that resolved after breathing treatment. Patient had to be placed on heated high flow. 12/23. Patient seen and examined. Breathing has improved, currently on 4 L of oxygen REVIEW OF SYSTEMS: CONSTITUTIONAL: No fever, no malaise,. CARDIOVASCULAR: No chest pain, no palpitations, no syncope. PULMONARY: As mentioned above GASTROINTESTINAL: No diarrhea, no nausea, no vomiting, no abdominal pain. NEUROLOGICAL: No headaches, no weakness, PHYSICAL EXAMINATION: GENERAL: The patient is alert and oriented x3, chronically ill looking HEENT: Pupils are round and equally reacting to light. EOMI. No scleral icterus. No conjunctival pallor. Normocephalic, atraumatic. No pharyngeal erythema. No thyromegaly. CARDIOVASCULAR: S1 and S2 present. No murmurs, rubs, or gallops. PULMONARY: Coarse breath sound bilaterally, bilateral expiratory wheeze audible ABDOMEN: Soft, nontender, nondistended, normoactive bowel sounds. No palpable organomegaly. MUSCULOSKELETAL: No joint swelling or deformity. EXTREMITIES: No cyanosis, clubbing, or pedal edema. NEUROLOGICAL: Gross neurological examination did not reveal any focal deficits. SKIN: No rashes. Assessment and plan Acute hypoxic respiratory failure requiring BiPAP on admission Acute COPD exacerbation Acute PE involving left lower lobe subsegmental pulmonary artery. No evidence of heart strain. Coffee-ground emesis x 1 on admission. No further episodes noted. Possible pneumonia less likely Sinus tachycardia Right lower extremity swelling more than left. Duplex scan is negative for DVT. Chronic CHF with mildly reduced ejection fraction Hypertension Hyperlipidemia Hyperglycemia with uncontrolled diabetes type 2 insulin-dependent. A1c 11 History of CVA/TIA with right-sided weakness Cognitive impairment/dementia Osteoarthritis Prior history of smoking Monitor vital signs Monitor CBC Monitor CMP Continue telemetry monitoring Continue breathing treatment -continue IV Solu-Medrol -continue Eliquis Monitor blood sugar levels, continue current insulin regimen Cardiology following Pulmonary following PT and OT recommend rehab Labs and medication were reviewed.. Continue same treatment. Continue with symptomatic treatment. Resume home medication. Monitor labs and vitals. DVT and GI prophylaxis. Further recommendations as per clinical course of the patient Dictation was produced using [employer] dictation software. please excuse any grammatical, word or spelling errors. Objective - Vital Signs Vital signs: Vital Signs Temp 97.7 F 12/24/23 11:47 Pulse 86 12/24/23 11:47 Resp 18 12/24/23 11:47 BP 154/92 12/24/23 11:47 Pulse Ox 99 12/24/23 11:51 FiO2 40 12/17/23 07:12 Intake & Output 12/23/23 12/24/23 12/24/23 18:59 06:59 18:59 Intake Total 920 120 10 Output Total 600 700 Balance 320 -580 10 Weight 90 kg Intake: IV 10 Invasive Line 3 10 Oral 920 120 0 Output: Urine 600 700 Other: Voiding Method External Catheter External Catheter External Catheter # Voids 0 # Bowel Movements 1 - Labs CBC & Chem 7: 12/21/23 06:41 12/21/23 13:29 Labs: Abnormal Lab Results - Last 24 Hours (Table) 12/23/23 12/23/23 12/24/23 Range/Units 16:20 20:20 07:03 POC Glucose (mg/dL) 275 H 370 H 118 H (70-110) mg/dL 12/24/23 Range/Units 11:57 POC Glucose (mg/dL) 195 H (70-110) mg/dL
--- NOTE | 2023-12-24 13:53 | P.PN ---
Subjective Progress Note Date: 12/24/23 Principal diagnosis: Shortness of breath. Patient is a 73-year-old male with a documented past medical history significant for GERD, hypertension, hyperlipidemia, diabetes, stroke, COPD. Patient is currently not answering any of my questions. Patient may have history of dementi a per ER documentation, I am unsure of his baseline mentation. Family not currently present, and HPI supplemented by ER documentation. On arrival to the emergency department, the ER provider reportedly noted the patient to be in respiratory distress. He was placed on BiPAP with current settings of 14/6 and FiO2 of 40%. On my evaluation, patient remains in the emergency department. He is lying in bed. Remains on BiPAP. Generating tidal volumes of 250 to 300 mL. Respiratory rate is 18. SpO2 99%. Patient is alert and follows simple commands. He shakes his head yes and no to direct questioning, however, does not speak. He denies being short of breath. Denies any pain. There are some minimal wheezing on auscultation. Chest x-ray was a limited exam as the patient is rotated. Possible right lower lung atelectasis versus infectious process. Cardiomegaly. CBC: WBC count 11.5, hemoglobin 15.3, hematocrit 47.2, platelets 151. CMP: Sodium 135, potassium 4.6, chloride 105, serum bicarb 27, BUN 11, creatinine 0.62, glucose 177. Lactic 2.4 and currently 2. LFTs unremarkable. Troponins not elevated. EKG: sinus tachycardia, rate 123 bpm, no obvious acute ischemic changes. Currently afebrile. Started empirically on azithromycin and Rocephin in the emergency department. Remains tachycardic. Continues on BiPAP. The patient is seen today December 18, 2023 in follow-up on the selective care unit. He is currently resting in bed. Awake and alert in no acute distress. Maintaining O2 saturations in the 90s on 2 L/min per nasal cannula. Doppler of the lower extremities were negative for DVT bilaterally. Follow-up chest x-ray revealed chronic changes without acute pulmonary disease. Echocardiogram revealed impaired left ventricular systolic function with ejection fraction 40 [address] 45%. [address] scan of the brain revealed no acute intracranial process. Blood cultures revealed no growth to date. White count 8.1. Hemoglobin 13.6. Platelets 139. Sodium 135. Potassium 4.4. Bicarb 32. BUN 25. Creatinine 0.77. Glucose 272. Stool for occult blood positive. He is continued on bronchodilators and steroids. Patient was seen today on 12/19/2023, remains on the cardiac floor, does not seem to be in any distress, asymptomatic on 2 L nasal cannula, on bronchodilators is also on anticoagulation therapy for questionable pulmonary embolism. Clinically I am not quite convinced that the patient has pulmonary embolism hence I would recommend repeat CT angiogram of the chest in the next couple of weeks postdischarge. In the meantime continue anticoagulation therapy as ordered by the admitting physician Evaluated today on 12/20/2023, patient is doing well, on 2 L nasal cannula O2 sats at 94%, patient is nonverbal, not in any distress, patient is now on anticoagulation therapy for presumptive pulmonary embolism although clinically it is not very convincing. Patient is being considered for discharge to rehab, and that is in progress.WBC count is 10.2 hemoglobin 12.1 electrolytes are normal renal profile is normal Patient was evaluated today on 12/21/2023, doing fairly well, does not seem to be in distress, on 2 L nasal cannula, Patient is supposedly awaiting placement. His labs were unremarkable including CBC and basic metabolic profile except for slightly elevated potassium of 5.3, renal profile is normal Seen today on 12/22/2023, patient is basically about the same, resting in bed, nonverbal, not in any distress, on 2 L nasal cannula. Awaiting possibly placement in the next 24 hours. WBC count is 5.7 hemoglobin 11.5, basic metabolic profile is normal bicarb is 40 Progress note dated December 23, 2023. 73-year-old male seen today in room 361. The patient continues on 15 L high flow nasal O2. He is not receiving any IV fluids. His saturations are 100%. The oxygen can be titrated down. The patient appears to be relatively stable. No new labs today other than a glucose of 287. Blood cultures are currently negative. Chest x-ray shows no acute cardiopulmonary abnormality. Progress note dated December 24, 2023. 73-year-old male seen today in room 361. Yesterday, he was on 15 L high flow oxygen. Today, has been weaned down to 4 L. He is not receiving any IV fluids. He is not having any respiratory distress or difficulty. There is no audible wheezing, conversational dyspnea, or use of accessory muscles. No new labs today. Glucose 195. Objective - Vital Signs Vital signs: Vital Signs Temp 97.7 F 12/24/23 11:47 Pulse 86 12/24/23 11:47 Resp 18 12/24/23 11:47 BP 154/92 12/24/23 11:47 Pulse Ox 99 12/24/23 11:51 FiO2 40 12/17/23 07:12 Intake & Output 12/23/23 12/24/23 12/24/23 18:59 06:59 18:59 Intake Total 920 120 10 Output Total 600 700 Balance 320 -580 10 Weight 90 kg Intake: IV 10 Invasive Line 3 10 Oral 920 120 0 Output: Urine 600 700 Other: Voiding Method External Catheter External Catheter External Catheter # Voids 0 # Bowel Movements 1 - Exam No acute distress, oriented 3. Currently on 4 L nasal O2. HEENT examination is grossly unremarkable. Mucous membranes are moist. No oral lesions. Neck supple. Full range of motion. No adenopathy thyromegaly or neck vein distention. Cardiovascular examination reveals regular rhythm rate. S1-S2 normal. No S3 or S4. No discernible murmur noted. Heart sounds are distant. Lungs reveal clear but diminished breath sounds. No crackles, rhonchi, or wheezes. Abdomen soft bowel sounds are heard. No masses or tenderness. Extremities reveal right greater than left lower extremity edema. No cyanosis or clubbing. Skin is without rash or lesion. Neurologic examination is brief but nonfocal. - Labs CBC & Chem 7: 12/21/23 06:41 12/21/23 13:29 Labs: Abnormal Lab Results - Last 24 Hours (Table) 12/23/23 12/23/23 12/24/23 Range/Units 16:20 20:20 07:03 POC Glucose (mg/dL) 275 H 370 H 118 H (70-110) mg/dL 12/24/23 Range/Units 11:57 POC Glucose (mg/dL) 195 H (70-110) mg/dL Assessment and Plan Assessment: Acute COPD exacerbation. Acute hypoxemic respiratory failure. Sinus tachycardia. Lower extremity edema. History of diabetes mellitus. History of hyperlipidemia. History of hypertension. History of hemorrhagic stroke. Plan: Plan dated December 23, 2023. The patient continues on appropriate bronchodilators, and other supportive care. The patient also continues on his factor Xa inhibitor. Labs, x-rays, medications are reviewed. The patient is a no code patient. When he was seen today, he was on 15 L high flow nasal O2. Saturations were 100%, and that oxygen can be titrated downward. We will continue to follow. Prognosis is certainly guarded. Labs, x-rays, and all medications have been reviewed. Plan dated December 24, 2023. The patient continues on appropriate medications, and his oxygen requirements, have gone from 15 L high flow nasal O2, down to 4 L nasal cannula. Labs, x- rays, and medications are reviewed. We will continue to follow the patient, make recommendations. Labs, x-rays, and all medications have been reviewed. Prognosis is guarded. Time with Patient: Less than 30
[2023-12-24 16:41] LABS: Glucose,Whole Blood 286 mg/dL (70-110)
[2023-12-24 20:27] LABS: Glucose,Whole Blood 208 mg/dL (70-110)
[2023-12-25 06:13] LABS: Glucose,Whole Blood 197 mg/dL (70-110)
[2023-12-25 07:35] LABS: Anisocytosis Slight; Basophils % (A) 0 %; Eosinophils % (A) 0 %; HCT 46.5 % (39.0-53.0); HGB 14.5 gm/dL (13.0-17.5); Hypochromasia Slight; Lymphocytes # (A) 1.2 k/uL (1.0-4.8); Lymphocytes % (A) 10 %; MCH 30.6 pg (25.0-35.0); MCHC 31.3 g/dL (31.0-37.0); Macrocytosis Slight; Mean Platelet Volume 8.7; Monocytes # (A) 0.5 k/uL (0-1.0); Monocytes % (A) 4 %; Neutrophils # (A) 10.3 k/uL (1.3-7.7); Neutrophils % (A) 85 %; Platelet Count 138 k/uL (150-450); RBC 4.74 m/uL (4.30-5.90); RDW 16.5 % (11.5-15.5); WBC 12.2 k/uL (3.8-10.6)
[2023-12-25 07:53] LABS: ALT 201 U/L (4-49); AST 72 U/L (17-59); African American GFR (CKD) >90 (>60 ml/min/1.73 sqM); Albumin 3.2 g/dL (3.5-5.0); Alkaline Phosphatase 106 U/L (38-126); Anion Gap 3 mmol/L; Blood Urea Nitrogen 34 mg/dL (9-20); Calcium 8.9 mg/dL (8.4-10.2); Carbon Dioxide 33 mmol/L (22-30); Chloride 97 mmol/L (98-107); Glucose 218 mg/dL (74-99); Non-African American GFR(CKD) 84 (>60 ml/min/1.73 sqM); Potassium 5.1 mmol/L (3.5-5.1); Sodium 133 mmol/L (137-145); Total Bilirubin 1.2 mg/dL (0.2-1.3); Total Protein 5.5 g/dL (6.3-8.2)
[2023-12-25 11:20] LABS: Glucose,Whole Blood 506 mg/dL (70-110)
[2023-12-25 11:23] LABS: Glucose,Whole Blood 511 mg/dL (70-110)
[2023-12-25 12:10] LABS: Glucose,Whole Blood 416 mg/dL (70-110)
--- NOTE | 2023-12-25 12:19 | P.PN ---
Subjective Progress Note Date: 12/25/23 Principal diagnosis: Shortness of breath. Patient is a 73-year-old male with a documented past medical history significant for GERD, hypertension, hyperlipidemia, diabetes, stroke, COPD. Patient is currently not answering any of my questions. Patient may have history of dementi a per ER documentation, I am unsure of his baseline mentation. Family not currently present, and HPI supplemented by ER documentation. On arrival to the emergency department, the ER provider reportedly noted the patient to be in respiratory distress. He was placed on BiPAP with current settings of 14/6 and FiO2 of 40%. On my evaluation, patient remains in the emergency department. He is lying in bed. Remains on BiPAP. Generating tidal volumes of 250 to 300 mL. Respiratory rate is 18. SpO2 99%. Patient is alert and follows simple commands. He shakes his head yes and no to direct questioning, however, does not speak. He denies being short of breath. Denies any pain. There are some minimal wheezing on auscultation. Chest x-ray was a limited exam as the patient is rotated. Possible right lower lung atelectasis versus infectious process. Cardiomegaly. CBC: WBC count 11.5, hemoglobin 15.3, hematocrit 47.2, platelets 151. CMP: Sodium 135, potassium 4.6, chloride 105, serum bicarb 27, BUN 11, creatinine 0.62, glucose 177. Lactic 2.4 and currently 2. LFTs unremarkable. Troponins not elevated. EKG: sinus tachycardia, rate 123 bpm, no obvious acute ischemic changes. Currently afebrile. Started empirically on azithromycin and Rocephin in the emergency department. Remains tachycardic. Continues on BiPAP. The patient is seen today December 18, 2023 in follow-up on the selective care unit. He is currently resting in bed. Awake and alert in no acute distress. Maintaining O2 saturations in the 90s on 2 L/min per nasal cannula. Doppler of the lower extremities were negative for DVT bilaterally. Follow-up chest x-ray revealed chronic changes without acute pulmonary disease. Echocardiogram revealed impaired left ventricular systolic function with ejection fraction [address] scan of the brain revealed no acute intracranial process. Blood cultures revealed no growth to date. White count 8.1. Hemoglobin 13.6. Platelets 139. Sodium 135. Potassium 4.4. Bicarb 32. BUN 25. Creatinine 0.77. Glucose 272. Stool for occult blood positive. He is continued on bronchodilators and steroids. Patient was seen today on 12/19/2023, remains on the cardiac floor, does not seem to be in any distress, asymptomatic on 2 L nasal cannula, on bronchodilators is also on anticoagulation therapy for questionable pulmonary embolism. Clinically I am not quite convinced that the patient has pulmonary embolism hence I would recommend repeat CT angiogram of the chest in the next couple of weeks postdischarge. In the meantime continue anticoagulation therapy as ordered by the admitting physician Evaluated today on 12/20/2023, patient is doing well, on 2 L nasal cannula O2 sats at 94%, patient is nonverbal, not in any distress, patient is now on anticoagulation therapy for presumptive pulmonary embolism although clinically it is not very convincing. Patient is being considered for discharge to rehab, and that is in progress.WBC count is 10.2 hemoglobin 12.1 electrolytes are normal renal profile is normal Patient was evaluated today on 12/21/2023, doing fairly well, does not seem to be in distress, on 2 L nasal cannula, Patient is supposedly awaiting placement. His labs were unremarkable including CBC and basic metabolic profile except for slightly elevated potassium of 5.3, renal profile is normal Seen today on 12/22/2023, patient is basically about the same, resting in bed, nonverbal, not in any distress, on 2 L nasal cannula. Awaiting possibly placement in the next 24 hours. WBC count is 5.7 hemoglobin 11.5, basic metabolic profile is normal bicarb is 40 Progress note dated December 23, 2023. 73-year-old male seen today in room 361. The patient continues on 15 L high flow nasal O2. He is not receiving any IV fluids. His saturations are 100%. The oxygen can be titrated down. The patient appears to be relatively stable. No new labs today other than a glucose of 287. Blood cultures are currently negative. Chest x-ray shows no acute cardiopulmonary abnormality. Progress note dated December 24, 2023. 73-year-old male seen today in room 361. Yesterday, he was on 15 L high flow oxygen. Today, has been weaned down to 4 L. He is not receiving any IV fluids. He is not having any respiratory distress or difficulty. There is no audible wheezing, conversational dyspnea, or use of accessory muscles. No new labs today. Glucose 195. Progress note dated December 25, 2023. 73-year-old male who is seen today in room 361. The patient has been weaned down to 2 L of oxygen. No IV fluids. From the pulmonary standpoint, the p atient is at baseline, and could be considered for possible discharge. We will leave that decision up to the primary service. Labs today include a white count 12.2, hemoglobin 14.5, hematocrit 46.5, and a platelet count of 138,000. Sodium 133, potassium 5.1, chlorides 97, CO2 33, BUN 34, creatinine 0.88. Albumin is 3.2. Objective - Vital Signs Vital signs: Vital Signs Temp 97.5 F L 12/25/23 08:00 Pulse 81 12/25/23 08:00 Resp 18 12/25/23 08:00 BP 171/98 12/25/23 08:00 Pulse Ox 95 12/25/23 08:00 FiO2 40 12/17/23 07:12 Intake & Output 12/24/23 12/25/23 12/25/23 18:59 06:59 18:59 Intake Total 260 540 240 Output Total 1000 650 Balance -740 -110 240 Intake: IV 20 Invasive Line 3 20 Oral 240 540 240 Output: Urine 1000 650 Other: Voiding Method External Catheter External Catheter External Catheter # Voids 0 # Bowel Movements 1 1 - Exam No acute distress, oriented 3. Currently on 2 L nasal O2. HEENT examination is grossly unremarkable. Mucous membranes are moist. No oral lesions. Neck supple. Full range of motion. No adenopathy thyromegaly or neck vein distention. Cardiovascular examination reveals regular rhythm rate. S1-S2 normal. No S3 or S4. No discernible murmur noted. Heart sounds are distant. Lungs reveal clear but diminished breath sounds. No crackles, rhonchi, or wheezes. Abdomen soft bowel sounds are heard. No masses or tenderness. Extremities reveal right greater than left lower extremity edema. No cyanosis or clubbing. Skin is without rash or lesion. Neurologic examination is brief but nonfocal. - Labs CBC & Chem 7: 12/25/23 06:40 12/25/23 06:40 Labs: Abnormal Lab Results - Last 24 Hours (Table) 12/24/23 12/24/23 12/25/23 Range/Units 16:40 20:26 06:11 WBC (3.8-10.6) k/uL RDW (11.5-15.5) % Plt Count (150-450) k/uL Neutrophils # (1.3-7.7) k/uL Sodium (137-145) mmol/L Chloride (98-107) mmol/L Carbon Dioxide (22-30) mmol/L BUN (9-20) mg/dL Glucose (74-99) mg/dL POC Glucose (mg/dL) 286 H 208 H 197 H (70-110) mg/dL AST (17-59) U/L ALT (4-49) U/L Total Protein (6.3-8.2) g/dL Albumin (3.5-5.0) g/dL 12/25/23 12/25/23 12/25/23 Range/Units 06:40 06:40 11:18 WBC 12.2 H (3.8-10.6) k/uL RDW 16.5 H (11.5-15.5) % Plt Count 138 L (150-450) k/uL Neutrophils # 10.3 H (1.3-7.7) k/uL Sodium 133 L (137-145) mmol/L Chloride 97 L (98-107) mmol/L Carbon Dioxide 33 H (22-30) mmol/L BUN 34 H (9-20) mg/dL Glucose 218 H (74-99) mg/dL POC Glucose (mg/dL) 506 H* (70-110) mg/dL AST 72 H (17-59) U/L ALT 201 H (4-49) U/L Total Protein 5.5 L (6.3-8.2) g/dL Albumin 3.2 L (3.5-5.0) g/dL 12/25/23 12/25/23 Range/Units 11:19 12:08 WBC (3.8-10.6) k/uL RDW (11.5-15.5) % Plt Count (150-450) k/uL Neutrophils # (1.3-7.7) k/uL Sodium (137-145) mmol/L Chloride (98-107) mmol/L Carbon Dioxide (22-30) mmol/L BUN (9-20) mg/dL Glucose (74-99) mg/dL POC Glucose (mg/dL) 511 H* 416 H (70-110) mg/dL AST (17-59) U/L ALT (4-49) U/L Total Protein (6.3-8.2) g/dL Albumin (3.5-5.0) g/dL Assessment and Plan Assessment: Acute COPD exacerbation. Acute hypoxemic respiratory failure. Sinus tachycardia. Lower extremity edema. History of diabetes mellitus. History of hyperlipidemia. History of hypertension. History of hemorrhagic stroke. Plan: Plan dated December 23, 2023. The patient continues on appropriate bronchodilators, and other supportive care. The patient also continues on his factor Xa inhibitor. Labs, x-rays, medications are reviewed. The patient is a no code patient. When he was seen today, he was on 15 L high flow nasal O2. Saturations were 100%, and that oxygen can be titrated downward. We will continue to follow. Prognosis is certainly guarded. Labs, x-rays, and all medications have been reviewed. Plan dated December 24, 2023. The patient continues on appropriate medications, and his oxygen requirements, have gone from 15 L high flow nasal O2, down to 4 L nasal cannula. Labs, x- rays, and medications are reviewed. We will continue to follow the patient, make recommendations. Labs, x-rays, and all medications have been reviewed. Prognosis is guarded. Plan dated December 25, 2023. The patient is doing much better. He has been weaned down to 2 L. He is not having any respiratory distress or difficulty. There is no audible wheezing, use of accessory muscles, or conversational dyspnea. Labs, x-rays, and medications are reviewed. On the pulmonary standpoint, the patient could be considered for possible discharge. As mentioned above, we will leave that up to the primary service. Time with Patient: Less than 30
--- NOTE | 2023-12-25 13:03 | P.PN ---
Subjective Progress Note Date: 12/25/23 Patient is an 72-year-old male with known history of CHF, COPD, diabetes type 2 insulin-dependent, history of CVA/TIA with right-sided weakness, GERD, hypertension, hyperlipidemia, memory impairment, osteoarthritis and prior history of smoking was brought to ER due to respiratory distress. Patient was placed on BiPAP in the ER. Patient has been having worsening shortness of breath and low oxygen level. Patient is able to say yes or no questions but unable to provide good history. Laboratory data showed WBC 11.4 hemoglobin 15.3 and platelets 151 Sodium 134 potassium 4.6 chloride 105 bicarb is 27 BUN 11 creatinine 0.16 blood sugar 177 and lactic acid 2.4 on admission liver enzymes not elevated. Troponin x 3 negative. Procalcitonin level is 0.23, pro BNP 188. Patient 1 episode of coffee-ground emesis this morning. Hemoglobin is fairly stable from last night. EKG showed sinus tachycardia with heart rate 123 Chest x-ray showed limited examination due to patient rotation with possible right lower lobe airspace opacities. May represent pneumonia versus atelectasis. Cardiomegaly. Right lower extremity duplex was done due to more swelling compared to left. Negative for DVT in the right lower extremity. Repeat chest x-ray this morning showed chronic changes without evidence for acute pulmonary disease. Patient was given a dose of ceftriaxone and azithromycin in the ER as well as DuoNebs.. He was also given a dose of IV Lasix in the ER. 12/18/2023 Patient is lying in the bed. Awake alert and oriented x 3. Requiring 2 L oxygen via nasal cannula. No further episodes of emesis. Patient is tolerating oral diet. 2D echocardiogram showed ejection fraction 5 to 40% with intracardiac valves not well-visualized. CTA chest showed acute PE involving left lower lobe subsegmental pulmonary artery. No evidence of heart strain. Patient was started on heparin drip. Hemoglobin is fairly stable. Other laboratory WBC 10.9 hemoglobin 13.2 and platelets 136 Cardiology and pulmonary is on board. 12/19/2023 Patient is resting in the bed. Awake alert and oriented. Currently requiring 2 L oxygen via nasal cannula. No further episodes of emesis. Tolerating oral diet. Patient is being continued on heparin drip. Hemoglobin is 12.6 today. Patient did not have any bowel meant today. No complaints of chest pain or shortness of breath. Other laboratory data showed sodium 135 potassium 4.1 chloride 103 bicarb is 28 BUN 24 and creatinine 0.74 and blood sugar is 317. Patient was als o started on preprandial insulin. 12/20/2023 Patient is lying in the bed. Awake alert and oriented. No complaints of chest pain or shortness of breath. Requiring 2 L oxygen via nasal cannula. Patient has been afebrile. No nausea or vomiting. Patient did not have any bowel meant last few days. Otherwise heparin has been changed to Eliquis. Patient is being continued on IV Solu-Medrol, DuoNebs and Pulmicort/Perforomist". Otherwise blood sugar is elevated to 300s this morning. Continue insulin sliding scale and titrate dose as needed.. Patient remains febrile. Laboratory test showed WBC 10.2 hemoglobin 12.1 and platelets 145 sodium 137 potassium 4.5 chloride 100 bicarb is 34 BUN 26 and creatinine 0.74 and calcium 8.7. Pulmonary is on board. 12/20. Patient seen and examined currently on 2 L of oxygen. Blood work done this morning showed WBC 10.3, hemoglobin 12.8, platelet count 120, sodium 133, potassium 5.3 12/21. Patient seen and examined. Gets short of breath on exertion. Nursing staff has noted that the patient occasionally has a stridor. 12/22. Patient seen and examined. Patient was anxious this morning, was getting short of breath on exertion. Patient also had stridor, that resolved after breathing treatment. Patient had to be placed on heated high flow. 12/23. Patient seen and examined. Breathing has improved, currently on 4 L of oxygen 12/24. Patient seen and examined. Patient blood sugars have been elevated, last blood sugar was in 500. Adjusted insulin. Blood work showed WBC 12.2, hemoglobin 14.5, sodium 133, potassium 5.1, BUN 34, creatinine 0.88 REVIEW OF SYSTEMS: CONSTITUTIONAL: No fever, no malaise,. CARDIOVASCULAR: No chest pain, no palpitations, no syncope. PULMONARY: As mentioned above GASTROINTESTINAL: No diarrhea, no nausea, no vomiting, no abdominal pain. NEUROLOGICAL: No headaches, no weakness, PHYSICAL EXAMINATION: GENERAL: The patient is alert and oriented x3, chronically ill looking HEENT: Pupils are round and equally reacting to light. EOMI. No scleral icterus. No conjunctival pallor. Normocephalic, atraumatic. No pharyngeal erythema. No thyromegaly. CARDIOVASCULAR: S1 and S2 present. No murmurs, rubs, or gallops. PULMONARY: Coarse breath sound bilaterally, bilateral expiratory wheeze audible ABDOMEN: Soft, nontender, nondistended, normoactive bowel sounds. No palpable organomegaly. MUSCULOSKELETAL: No joint swelling or deformity. EXTREMITIES: No cyanosis, clubbing, or pedal edema. NEUROLOGICAL: Gross neurological examination did not reveal any focal deficits. SKIN: No rashes. Assessment and plan Acute hypoxic respiratory failure requiring BiPAP on admission Acute COPD exacerbation Acute PE involving left lower lobe subsegmental pulmonary artery. No evidence of heart strain. Coffee-ground emesis x 1 on admission. No further episodes noted. Possible pneumonia less likely Sinus tachycardia Right lower extremity swelling more than left. Duplex scan is negative for DVT. Chronic CHF with mildly reduced ejection fraction Hypertension Hyperlipidemia Hyperglycemia with uncontrolled diabetes type 2 insulin-dependent. A1c 11 History of CVA/TIA with right-sided weakness Cognitive impairment/dementia Osteoarthritis Prior history of smoking Monitor vital signs Monitor CBC Monitor CMP Continue telemetry monitoring Continue breathing treatment -continue IV Solu-Medrol -continue Eliquis Monitor blood sugar levels, continue current insulin regimen, increase Levemir to 22 units at bedtime, increase NovoLog to 9 units 3 times daily Cardiology following Pulmonary following PT and OT recommend rehab Labs and medication were reviewed.. Continue same treatment. Continue with symptomatic treatment. Resume home medication. Monitor labs and vitals. DVT and GI prophylaxis. Further recommendations as per clinical course of the patient Dictation was produced using [employer] dictation software. please excuse any grammatical, word or spelling errors. Objective - Vital Signs Vital signs: Vital Signs Temp 97.5 F L 12/25/23 08:00 Pulse 81 12/25/23 08:00 Resp 18 12/25/23 08:00 BP 171/98 12/25/23 08:00 Pulse Ox 95 12/25/23 08:00 FiO2 40 12/17/23 07:12 Intake & Output 12/24/23 12/25/23 12/25/23 18:59 06:59 18:59 Intake Total 260 540 240 Output Total 1000 650 Balance -740 -110 240 Intake: IV 20 Invasive Line 3 20 Oral 240 540 240 Output: Urine 1000 650 Other: Voiding Method External Catheter External Catheter External Catheter # Voids 0 # Bowel Movements 1 1 - Labs CBC & Chem 7: 12/25/23 06:40 12/25/23 06:40 Labs: Abnormal Lab Results - Last 24 Hours (Table) 12/24/23 12/24/23 12/25/23 Range/Units 16:40 20:26 06:11 WBC (3.8-10.6) k/uL RDW (11.5-15.5) % Plt Count (150-450) k/uL Neutrophils # (1.3-7.7) k/uL Sodium (137-145) mmol/L Chloride (98-107) mmol/L Carbon Dioxide (22-30) mmol/L BUN (9-20) mg/dL Glucose (74-99) mg/dL POC Glucose (mg/dL) 286 H 208 H 197 H (70-110) mg/dL AST (17-59) U/L ALT (4-49) U/L Total Protein (6.3-8.2) g/dL Albumin (3.5-5.0) g/dL 12/25/23 12/25/23 12/25/23 Range/Units 06:40 06:40 11:18 WBC 12.2 H (3.8-10.6) k/uL RDW 16.5 H (11.5-15.5) % Plt Count 138 L (150-450) k/uL Neutrophils # 10.3 H (1.3-7.7) k/uL Sodium 133 L (137-145) mmol/L Chloride 97 L (98-107) mmol/L Carbon Dioxide 33 H (22-30) mmol/L BUN 34 H (9-20) mg/dL Glucose 218 H (74-99) mg/dL POC Glucose (mg/dL) 506 H* (70-110) mg/dL AST 72 H (17-59) U/L ALT 201 H (4-49) U/L Total Protein 5.5 L (6.3-8.2) g/dL Albumin 3.2 L (3.5-5.0) g/dL 12/25/23 12/25/23 Range/Units 11:19 12:08 WBC (3.8-10.6) k/uL RDW (11.5-15.5) % Plt Count (150-450) k/uL Neutrophils # (1.3-7.7) k/uL Sodium (137-145) mmol/L Chloride (98-107) mmol/L Carbon Dioxide (22-30) mmol/L BUN (9-20) mg/dL Glucose (74-99) mg/dL POC Glucose (mg/dL) 511 H* 416 H (70-110) mg/dL AST (17-59) U/L ALT (4-49) U/L Total Protein (6.3-8.2) g/dL Albumin (3.5-5.0) g/dL
[2023-12-25 16:18] LABS: Glucose,Whole Blood 211 mg/dL (70-110)
[2023-12-25] MEDS: INSULIN ASPART (NovoLOG) 100 UNIT/ML VIAL SQ SCH (16:57)
[2023-12-25 20:28] LABS: Glucose,Whole Blood 196 mg/dL (70-110)
[2023-12-26 07:34] LABS: Glucose,Whole Blood 259 mg/dL (70-110)
[2023-12-26] MEDS: INSULIN DETEMIR (LEVEMIR) 100 UNIT/ML SYR SQ SCH (07:37)
[2023-12-26 11:25] LABS: Glucose,Whole Blood 248 mg/dL (70-110)
--- NOTE | 2023-12-26 12:54 | P.DS ---
Providers Date of admission: 12/16/23 14:19 Expected date of discharge: 12/26/23 Attending physician: Jericho Quiros Consults: 12/16/23 14:16 Consult Physician Routine Consulting Provider: Alison Ruth Consult Reason/Comments: hypoxia Do you want consulting provider notified?: Yes Primary care physician: Bryson Alcocer Hospital Course: Discharge diagnoses; Acute hypoxic respiratory failure requiring BiPAP on admission Acute COPD exacerbation Acute PE involving left lower lobe subsegmental pulmonary artery. No evidence of heart strain. Coffee-ground emesis x 1 on admission. No further episodes noted. Possible pneumonia less likely Sinus tachycardia Right lower extremity swelling more than left. Duplex scan is negative for DVT. Chronic CHF with mildly reduced ejection fraction Hypertension Hyperlipidemia Hyperglycemia with uncontrolled diabetes type 2 insulin-dependent. A1c 11 History of CVA/TIA with right-sided weakness Cognitive impairment/dementia Osteoarthritis Prior history of smoking Hospital course; Patient is an 72-year-old male with known history of CHF, COPD, diabetes type 2 insulin-dependent, history of CVA/TIA with right-sided weakness, GERD, hyperte nsion, hyperlipidemia, memory impairment, osteoarthritis and prior history of smoking was brought to ER due to respiratory distress. Patient was placed on BiPAP in the ER. Patient has been having worsening shortness of breath and low oxygen level. Patient is able to say yes or no questions but unable to provide good history. Laboratory data showed WBC 11.4 hemoglobin 15.3 and platelets 151 Sodium 134 potassium 4.6 chloride 105 bicarb is 27 BUN 11 creatinine 0.16 blood sugar 177 and lactic acid 2.4 on admission liver enzymes not elevated. Troponin x 3 negative. Procalcitonin level is 0.23, pro BNP 188. Patient 1 episode of coffee-ground emesis this morning. Hemoglobin is fairly stable from last night. EKG showed sinus tachycardia with heart rate 123 Chest x-ray showed limited examination due to patient rotation with possible right lower lobe airspace opacities. May represent pneumonia versus atelectasis. Cardiomegaly. Right lower extremity duplex was done due to more swelling compared to left. Negative for DVT in the right lower extremity. Repeat chest x-ray this morning showed chronic changes without evidence for acute pulmonary disease. Patient was given a dose of ceftriaxone and azithromycin in the ER as well as DuoNebs.. He was also given a dose of IV Lasix in the ER. 12/18/2023 Patient is lying in the bed. Awake alert and oriented x 3. Requiring 2 L oxygen via nasal cannula. No further episodes of emesis. Patient is tolerating oral diet. 2D echocardiogram showed ejection fraction 5 to 40% with intracardiac valves not well-visualized. CTA chest showed acute PE involving left lower lobe subsegmental pulmonary artery. No evidence of heart strain. Patient was started on heparin drip. Hemoglobin is fairly stable. Other laboratory WBC 10.9 hemoglobin 13.2 and platelets 136 Cardiology and pulmonary is on board. 12/19/2023 Patient is resting in the bed. Awake alert and oriented. Currently requiring 2 L oxygen via nasal cannula. No further episodes of emesis. Tolerating oral diet. Patient is being continued on heparin drip. Hemoglobin is 12.6 today. Patient did not have any bowel meant today. No complaints of chest pain or shortness of breath. Other laboratory data showed sodium 135 potassium 4.1 chloride 103 bicarb is 28 BUN 24 and creatinine 0.74 and blood sugar is 317. Patient was also started on preprandial insulin. 12/20/2023 Patient is lying in the bed. Awake alert and oriented. No complaints of chest pain or shortness of breath. Requiring 2 L oxygen via nasal cannula. Patient has been afebrile. No nausea or vomiting. Patient did not have any bowel meant last few days. Otherwise heparin has been changed to Eliquis. Patient is being continued on IV Solu-Medrol, DuoNebs and Pulmicort/Perforomist". Otherwise blood sugar is elevated to 300s this morning. Continue insulin sliding scale and titrate dose as needed.. Patient remains febrile. Laboratory test showed WBC 10.2 hemoglobin 12.1 and platelets 145 sodium 137 p otassium 4.5 chloride 100 bicarb is 34 BUN 26 and creatinine 0.74 and calcium 8.7. Pulmonary is on board. 12/20. Patient seen and examined currently on 2 L of oxygen. Blood work done this morning showed WBC 10.3, hemoglobin 12.8, platelet count 120, sodium 133, potassium 5.3 12/21. Patient seen and examined. Gets short of breath on exertion. Nursing staff has noted that the patient occasionally has a stridor. 12/22. Patient seen and examined. Patient was anxious this morning, was getting short of breath on exertion. Patient also had stridor, that resolved after breathing treatment. Patient had to be placed on heated high flow. 12/23. Patient seen and examined. Breathing has improved, currently on 4 L of oxygen 12/24. Patient seen and examined. Patient blood sugars have been elevated, last blood sugar was in 500. Adjusted insulin. Blood work showed WBC 12.2, hemoglobin 14.5, sodium 133, potassium 5.1, BUN 34, creatinine 0.88 12/25. Patient seen and examined. Currently on 1 L of oxygen. Being discharged on tapering dose of prednisone. Outpatient follow-up with PCP and pulmonary PHYSICAL EXAMINATION: GENERAL: The patient is alert and oriented x3, chronically ill looking HEENT: Pupils are round and equally reacting to light. EOMI. No scleral icterus. No conjunctival pallor. Normocephalic, atraumatic. No pharyngeal erythema. No thyromegaly. CARDIOVASCULAR: S1 and S2 present. No murmurs, rubs, or gallops. PULMONARY: Coarse breath sound bilaterally, bilateral expiratory wheeze audible ABDOMEN: Soft, nontender, nondistended, normoactive bowel sounds. No palpable organomegaly. MUSCULOSKELETAL: No joint swelling or deformity. EXTREMITIES: No cyanosis, clubbing, or pedal edema. NEUROLOGICAL: Gross neurological examination did not reveal any focal deficits. SKIN: No rashes. Dictation was produced using [employer] dictation software. please excuse any grammatical, word or spelling errors. Patient Condition at Discharge: Fair Plan - Discharge Summary Discharge Rx Participant: Yes New Discharge Prescriptions: New Apixaban [Eliquis] 5 mg PO BID 30 Days #60 tab Metoprolol Tartrate [Lopressor] 50 mg PO BID 30 Days #60 tab Atorvastatin [Lipitor] 20 mg PO HS 30 Days #30 tab INSULIN ASPART (NovoLOG) [NovoLOG (formulary)] 9 unit SQ AC-TID each predniSONE 10 mg PO DAILY 8 Days #20 tab Continue Montelukast [Singulair] 10 mg PO HS Finasteride [Proscar] 5 mg PO DAILY Multivitamins, Thera [Multivitamin (formulary)] 1 tab PO DAILY Insulin Glargine,Hum.rec.anlog [Lantus Solostar Pen] 20 units SQ DAILY Fluticasone/Umeclidin/Vilanter [Trelegy Ellipta 100-62.5-25] 1 puff INHALATION RT-DAILY HYDROcodone/APAP 5-325MG [[place] 5-325] 1 tab PO BID 3 Days #6 tab metFORMIN HCL [Glucophage] 500 mg PO BID-W/MEALS Ipratropium-Albuterol Nebulize [Duoneb 0.5 mg-3 mg/3 ml Soln] 3 ml INHALATION RT-TID Cholecalciferol [Vitamin D3 (25 Mcg = 1000 Iu)] 75 mcg PO DAILY Pregabalin [Lyrica] 150 mg PO BID 3 Days #6 cap Discontinued Atorvastatin [Lipitor] 10 mg PO HS Metoprolol Tartrate [Lopressor] 12.5 mg PO BID Discharge Medication List Finasteride [Proscar] 5 mg PO DAILY 11/27/16 [History] Montelukast [Singulair] 10 mg PO HS 11/27/16 [History] Multivitamins, Thera [Multivitamin (formulary)] 1 tab PO DAILY 11/29/16 [History] Cholecalciferol [Vitamin D3 (25 Mcg = 1000 Iu)] 75 mcg PO DAILY 12/16/23 [History] Fluticasone/Umeclidin/Vilanter [Trelegy Ellipta 100-62.5-25] 1 puff INHALATION RT-DAILY 12/16/23 [History] Insulin Glargine,Hum.rec.anlog [Lantus Solostar Pen] 20 units SQ DAILY 12/16/23 [History] Ipratropium-Albuterol Nebulize [Duoneb 0.5 mg-3 mg/3 ml Soln] 3 ml INHALATION RT-TID 12/16/23 [History] metFORMIN HCL [Glucophage] 500 mg PO BID-W/MEALS 12/16/23 [History] Apixaban [Eliquis] 5 mg PO BID 30 Days #60 tab 12/26/23 [Rx] Atorvastatin [Lipitor] 20 mg PO HS 30 Days #30 tab 12/26/23 [Rx] HYDROcodone/APAP 5-325MG [[place] 5-325] 1 tab PO BID 3 Days #6 tab 12/26/23 [Rx] INSULIN ASPART (NovoLOG) [NovoLOG (formulary)] 9 unit SQ AC-TID each 12/26/23 [Rx] Metoprolol Tartrate [Lopressor] 50 mg PO BID 30 Days #60 tab 12/26/23 [Rx] Pregabalin [Lyrica] 150 mg PO BID 3 Days #6 cap 12/26/23 [Rx] predniSONE 10 mg PO DAILY 8 Days #20 tab 12/26/23 [Rx] Follow up Appointment(s)/Referral(s): Alison Ruth MD [STAFF PHYSICIAN] - 1 Week Bryson Alcocer MD [Primary Care Provider] - 1-2 days Norman Anaya DO [STAFF PHYSICIAN] - 1 Week Discharge Disposition: TRANSFER TO SNF/ECF
--- NOTE | 2023-12-26 12:58 | P.PN ---
Subjective Progress Note Date: 12/26/23 Patient is a 73-year-old male with a documented past medical history significant for GERD, hypertension, hyperlipidemia, diabetes, stroke, COPD. Patient is currently not answering any of my questions. Patient may have history of dementia per ER documentation, I am unsure of his baseline mentation. Family not currently present, and HPI supplemented by ER documentation. On arrival to the emergency department, the ER provider reportedly noted the patient to be in respiratory distress. He was placed on BiPAP with current settings of 14/6 and FiO2 of 40%. On my evaluation, patient remains in the emergency department. He is lying in bed. Remains on BiPAP. Generating tidal volumes of 250 to 300 mL. Respiratory rate is 18. SpO2 99%. Patient is alert and follows simple commands. He shakes his head yes and no to direct questioning, however, does not speak. He denies being short of breath. Denies any pain. There are some minimal wheezing on auscultation. Chest x-ray was a limited exam as the patient is rotated. Possible right lower lung atelectasis versus infectious process. Cardiomegaly. CBC: WBC count 11.5, hemoglobin 15.3, hematocrit 47.2, platelets 151. CMP: Sodium 135, potassium 4.6, chloride 105, serum bicarb 27, BUN 11, creatinine 0.62, glucose 177. Lactic 2.4 and currently 2. LFTs unremarkable. Troponins not elevated. EKG: sinus tachycardia, rate 123 bpm, no obvious acute ischemic changes. Currently afebrile. Started empirically on azithromycin and Rocephin in the emergency department. Remains tachycardic. Continues on BiPAP. The patient is seen today December 18, 2023 in follow-up on the selective care unit. He is currently resting in bed. Awake and alert in no acute distress. Maintaining O2 saturations in the 90s on 2 L/min per nasal cannula. Doppler of the lower extremities were negative for DVT bilaterally. Follow-up chest x-ray revealed chronic changes without acute pulmonary disease. Echocardiogram revealed impaired left ventricular systolic function with ejection fraction [address] scan of the brain revealed no acute intracranial process. Blood cultures revealed no growth to date. White count 8.1. Hemoglobin 13.6. Platelets 139. Sodium 135. Potassium 4.4. Bicarb 32. BUN 25. Creatinine 0.77. Glucose 272. Stool for occult blood positive. He is continued on bronchodilators and steroids. The patient is seen today December 26, 2023 in follow-up on the regular medical floor. He is currently sitting up in bed. Awake and alert in no acute distress. Maintaining good O2 saturations in the 90s on 2 L/min per nasal can nula. He is continued on DuoNeb inhalations, Pulmicort and Perforomist inhalations, Solu-Medrol. Anticoagulated with Eliquis. Glucose 248. He remains afebrile. Hemodynamically stable. Objective - Vital Signs Vital signs: Vital Signs Temp 97.6 F 12/26/23 07:53 Pulse 74 12/26/23 07:53 Resp 16 12/26/23 07:53 BP 154/88 12/26/23 07:53 Pulse Ox 94 L 12/26/23 07:54 FiO2 40 12/17/23 07:12 Intake & Output 12/25/23 12/26/23 12/26/23 18:59 06:59 18:59 Intake Total 360 Output Total 800 600 Balance -440 -600 Weight 89.5 kg 93 kg Intake: Oral 360 Output: Urine 800 600 Other: Voiding Method External Catheter External Catheter Incontinent External Catheter # Bowel Movements 1 - Exam GENERAL EXAM: Alert, 73-year-old male, does follow simple commands and shakes head yes or no to direct questioning, on 2 L nasal cannula, comfortable in no apparent distress. HEAD: Normocephalic and atraumatic EYES: Normal reaction of pupils, equal size. NOSE: Clear with pink turbinates. THROAT: No erythema or exudates. NECK: No masses, no JVD. CHEST: No chest wall deformity. LUNGS: Equal air entry with faint expiratory wheezing throughout. No conversational dyspnea or accessory muscle use. CVS: S1 and S2 normal with no audible murmur, regular rhythm. No extra heart sounds. ABDOMEN: No hepatosplenomegaly, active bowel sounds, no guarding or rigidity. SPINE: No scoliosis or deformity SKIN: No rashes CENTRAL NERVOUS SYSTEM: No focal deficits, tone is normal in all 4 extremities. EXTREMITIES: There is significant unilateral leg swelling, right greater than left. No clubbing or cyanosis. Peripheral pulses are intact. - Labs CBC & Chem 7: 12/25/23 06:40 12/25/23 06:40 Labs: Abnormal Lab Results - Last 24 Hours (Table) 12/25/23 12/25/23 12/26/23 Range/Units 16:16 20:27 07:33 POC Glucose (mg/dL) 211 H 196 H 259 H (70-110) mg/dL 12/26/23 Range/Units 11:23 POC Glucose (mg/dL) 248 H (70-110) mg/dL Assessment and Plan Assessment: Suspect acute COPD exacerbation, chest x-ray reveals no acute cardiopulmonary process. Acute hypoxemic respiratory failure, currently on 2 L nasal cannula Sinus tachycardia Lower extremity edema History of diabetes mellitus History of hyperlipidemia History of hypertension History of hemorrhagic stroke Plan: The patient was seen and evaluated Labs and medications reviewed Improved and on 2 L nasal cannula Continue bronchodilators, steroids Titrate down the FiO2 as tolerated Plan is to return to [facility] today This patient was seen independently by the pulmonary nurse practitioner addressing pulmonary issues I have personally seen and examined the patient, performed the documentation and the assessment and plan as written. Number of minutes spent on the visit: 24.
[2023-12-26 13:54] VITALS: BP 117/86; PULSE 72; RESP 17; TEMP 98.3
[2023-12-26] MEDS ORDERED: SYMBICORT 160-4.5 MCG INHALER INHALATION SCH (20:00)
[2023-12-27] MEDS ORDERED: predniSONE 10 MG TAB PO SCH (09:00)
== END 2023-12-26 15:40 | DRG 175 ==
LOC: EC 11:24 → 3SCARD 14:19 → 4SSUR 12-26 00:30
PROVIDERS: ADMIT Hospitalist; ATTEND Hospitalist
PROC: 5A09557 Assistance with Respiratory Ventilation, Greater than 96 Consecutive Hours, Continuous Positive Airway Pressure (ICD-10-PCS; principal; 2023-12-16)
DX: I26.99 Other pulmonary embolism without acute cor pulmonale (principal); J96.01 Acute respiratory failure with hypoxia; J44.1 Chronic obstructive pulmonary disease with (acute) exacerbation; I13.0 Hypertensive heart and chronic kidney disease with heart failure and stage 1 through stage 4 chronic kidney disease, or unspecified chronic kidney disease; K92.0 Hematemesis; I50.9 Heart failure, unspecified; N18.9 Chronic kidney disease, unspecified; E11.22 Type 2 diabetes mellitus with diabetic chronic kidney disease; Z79.4 Long term (current) use of insulin; F03.90 Unspecified dementia, unspecified severity, without behavioral disturbance, psychotic disturbance, mood disturbance, and anxiety; R41.89 Other symptoms and signs involving cognitive functions and awareness; R53.1 Weakness; M19.90 Unspecified osteoarthritis, unspecified site; E78.00 Pure hypercholesterolemia, unspecified; R00.0 Tachycardia, unspecified; E11.65 Type 2 diabetes mellitus with hyperglycemia; Z86.73 Personal history of transient ischemic attack (TIA), and cerebral infarction without residual deficits; Z87.891 Personal history of nicotine dependence; E87.5 Hyperkalemia; Z79.01 Long term (current) use of anticoagulants; Z79.84 Long term (current) use of oral hypoglycemic drugs; Z79.899 Other long term (current) drug therapy; Z79.82 Long term (current) use of aspirin
CPT/HCPCS: 36415; 36600; 70450; 71045; 71275; 80048; 80053; 82271; 82805; 83036; 83605; 83735; 83880; 84132; 84145; 84439; 84443; 84484; 85025; 85027; 85379; 85610; 85730; 87040; 87636; 93005; 93306; 93970; 94640; 94644; 94660; 94760; 96361; 96365; 96375; 96376; 99291